=== PATIENT | female | born 1970 | race Caucasian/White ===

== ENCOUNTER 2020-01-20 14:18 | Emergency (ER) | payer OTHER, SELFPAY ==
[2020-01-20 14:20] VITALS: BP 180/89; PULSE 88; RESP 16; TEMP 36.6; O2SAT 98; BMI 36.7
[2020-01-20 16:41] VITALS: BP 151/95; PULSE 91; RESP 20; TEMP 36.8; O2SAT 100
--- NOTE | 2020-01-20 16:54 | ED.ABDPAIN ---
HPI - Abdominal Pain General Chief Complaint: Abdominal Pain Stated Complaint: low abd pain Time Seen by Provider: 01/20/20 16:54 Source: patient Mode of arrival: ambulatory Limitations: no limitations History of Present Illness HPI narrative: Patient been complaining of lower abdominal pain since yesterday more on the left side getting worse since morning did not eat much today pain get worse on ambulation no blood in the stool patient never had similar problem in the past no abdominal distention no fever or chills MD elicited complaint: abdominal pain Pertinent past history: none Onset (ago): day(s) (1) Pain Consistency: constant Location: LLQ and suprapubic Severity: moderate Quality: sharp Radiation: none Exacerbating factors: movement Relieving factors: nothing Related Data Home Medications Medication Instructions Recorded Confirmed albuterol sulfate 90 mcg/actuation INHALATION 01/20/20 01/20/20 aerosol inhaler bisacodyl 5 mg tablet,delayed 10 mg PO DIRECTED 01/20/20 01/20/20 release doxycycline hyclate 100 mg tablet 100 mg PO Q12H 01/20/20 01/20/20 methylcellulose (laxative) 500 mg 1,000 mg PO BID 01/20/20 01/20/20 tablet ondansetron HCl 4 mg tablet 400f8 mg PO BID PRN 01/20/20 01/20/20 pantoprazole 40 mg tablet,delayed 40 mg PO DAILY 01/20/20 01/20/20 release peg 3350-electrolytes 236 ml PO DIRECTED 01/20/20 01/20/20 gram-22.74 gram-6.74 gram-5.86 gram solution prednisone 10 mg tablet mg PO 01/20/20 01/20/20 Previous Rx's Medication Instructions Recorded diclofenac sodium 50 mg PO Q12H PRN #14 tab 01/20/20 Allergies Allergy/AdvReac Type Severity Reaction Status Date / Time Iodinated Contrast Media Allergy Intermediate HIVES,SWELLING Unverified 10/27/19 16:11 [IV CONTRAST] FACIAL iodine [IODINE] Allergy Intermediate HIVES Unverified 10/27/19 16:11 Penicillins [PENICILLINS] Allergy Intermediate HIVES Unverified 10/27/19 16:11 IV dye Allergy Unknown Unverified 08/02/19 00:00 penicillin V Allergy Unknown Unverified 08/02/19 00:00 apple Allergy Unknown Uncoded 01/27/19 00:00 iodine based iv dye Allergy Unknown Uncoded 08/02/19 00:00 Review of Systems Review of Systems REVIEW OF SYSTEMS: Pertinent positives and negatives are stated above in the history. GEN: no fevers, chills, fatigue HEENT: no nasal congestion, sore throat, ear pain NEURO: no headache, dizziness, focal weakness PULM: no cough, shortness of breath CV: no chest pain, palpitations, LE edema ABD: no nausea, vomiting, diarrhea : no dysuria, urgency, frequency SKIN: no rash ROS otherwise negative x 10 Physical Exam Vital Signs: Vital Signs: Last Vital Signs Temp 98.3 F 01/20/20 19:09 Pulse 70 01/20/20 19:09 Resp 20 01/20/20 19:09 BP 140/82 H 01/20/20 19:09 Pulse Ox 100 01/20/20 19:09 Body Mass Index 36.7 Appearance: Alert. Oriented X3. No acute distress. Eyes: Pupils equal, round and reactive to light. ENT: Pharynx normal. Neck: Normal inspection. Neck supple. CVS: Normal heart rate and rhythm. Pulses normal. Respiratory: No respiratory distress. Breath sounds normal. Abdomen: Soft and tenderness left lower quadrant no rebound tenderness or guarding bowel sounds are present no mass palpable Skin: Skin warm and dry. Normal skin color. Normal skin turgor. Extremities: No lower extremity edema. Good range of movement Neuro: Oriented X 3. No motor deficit. No sensory deficit. MDM - Abdominal Pain MDM Narrative Medical decision making narrative: Patient with lower abdominal pain slightly elevated WBC count without left shift CT scan showed left ovarian cyst which is confirmed by ultrasound. Patient feeling better after pain medication discharged home advised to follow-up with gynecology Differential Diagnosis Differential diagnosis: Likely diverticulitis and ovarian cyst Medical Records Attestation: I reviewed the patient's medical records. Lab Data Attestation: I reviewed the patient's lab results. Result diagrams: 01/20/20 17:18 01/20/20 19:08 Labs: Lab Results 01/20/20 01/20/20 01/20/20 Range/Units 17:18 17:18 17:18 WBC 12.0 H (4.8-10.8) X10*3/uL RBC 4.83 (4.20-5.50) X10*6/uL Hgb 12.2 (12.0-16.0) g/dl Hct 39.1 (37-47) % MCV 81.0 (80-98) fL MCH 25.3 L (27.0-33.0) pg MCHC 31.2 (31.0-35.0) g/dl RDW 15.0 (11.0-16.0) % Plt Count 234 (160-400) X10*3/uL MPV 10.3 (9.4-12.3) fL Immature Gran % (Auto) 0.3 (0.0-0.4) % Neut % (Auto) 66.3 (45-73) % Lymph % (Auto) 21.7 (20-40) % Richardson % (Auto) 7.0 (2-11) % Eos % (Auto) 4.3 H (0-4) % Baso % (Auto) 0.4 (0-2) % Lymph # (Auto) 2.6 (1.2-4.9) X10*3/uL Richardson # (Auto) 0.8 (0.1-1.2) X10*3/uL Eos # (Auto) 0.5 H (0.0-0.4) X10*3/uL Baso # (Auto) 0.1 (0.0-0.2) X10*3/uL Abs Immat Gran (auto) 0.04 H (0.00-0.03) X10*3/uL Absolute Neuts (auto) 8.0 (2.0-8.3) X10*3/uL Absolute Nucleated RBC 0.000 (0.0-0.012) X10*3/uL Nucleated RBC % (auto) 0.0 (0.0-0.2) /100WBC Smear Tech's Comments VERIFIED Sodium Cancelled Potassium Cancelled Chloride Cancelled Carbon Dioxide Cancelled Anion Gap Cancelled BUN Cancelled Creatinine Cancelled Estim Creat Clear Calc Cancelled Estimated GFR Cancelled Random Glucose Cancelled Lactic Acid 1.1 (0.5-2.0) mmol/L Calcium Cancelled Total Bilirubin Cancelled AST Cancelled ALT Cancelled Alkaline Phosphatase Cancelled Total Protein Cancelled Albumin Cancelled Lipase Cancelled Urine Color Urine Appearance Urine pH (5.0-8.0) Ur Specific [place] (1.005-1.025) Urine Protein (NEG-TRACE) MG/DL Urine Glucose (UA) (NEG) MG/DL Urine Ketones (NEG) MG/DL Urine Blood (NEG) Urine Nitrite (NEG) Ur Leukocyte Esterase (NEG) Urine RBC (0) /HPF Urine WBC (0-4) /HPF Ur Squamous Epith Cells /LPF Urine Bacteria /LPF 01/20/20 01/20/20 Range/Units 19:08 19:08 WBC (4.8-10.8) X10*3/uL RBC (4.20-5.50) X10*6/uL Hgb (12.0-16.0) g/dl Hct (37-47) % MCV (80-98) fL MCH (27.0-33.0) pg MCHC (31.0-35.0) g/dl RDW (11.0-16.0) % Plt Count (160-400) X10*3/uL MPV (9.4-12.3) fL Immature Gran % (Auto) (0.0-0.4) % Neut % (Auto) (45-73) % Lymph % (Auto) (20-40) % Richardson % (Auto) (2-11) % Eos % (Auto) (0-4) % Baso % (Auto) (0-2) % Lymph # (Auto) (1.2-4.9) X10*3/uL Richardson # (Auto) (0.1-1.2) X10*3/uL Eos # (Auto) (0.0-0.4) X10*3/uL Baso # (Auto) (0.0-0.2) X10*3/uL Abs Immat Gran (auto) (0.00-0.03) X10*3/uL Absolute Neuts (auto) (2.0-8.3) X10*3/uL Absolute Nucleated RBC (0.0-0.012) X10*3/uL Nucleated RBC % (auto) (0.0-0.2) /100WBC Smear Tech's Comments Sodium 139 Potassium 4.2 Chloride 104 Carbon Dioxide 27 Anion Gap 12 BUN 10 Creatinine 0.65 Estim Creat Clear Calc 111.5 Estimated GFR > 60 Random Glucose 80 Lactic Acid (0.5-2.0) mmol/L Calcium 8.5 Total Bilirubin 0.3 AST 11 ALT 14 Alkaline Phosphatase 72 Total Protein 6.2 L Albumin 3.7 Lipase 29 Urine Color YELLOW Urine Appearance CLEAR Urine pH 6.0 (5.0-8.0) Ur Specific [place] 1.020 (1.005-1.025) Urine Protein 2+ H (NEG-TRACE) MG/DL Urine Glucose (UA) NEG (NEG) MG/DL Urine Ketones NEG (NEG) MG/DL Urine Blood 3+ H (NEG) Urine Nitrite NEG (NEG) Ur Leukocyte Esterase NEG (NEG) Urine RBC 5-9 H (0) /HPF Urine WBC 0 (0-4) /HPF Ur Squamous Epith Cells 1+ /LPF Urine Bacteria TRACE /LPF Discharge Plan Discharge Clinical Impression: Ovarian cyst Qualifiers: Laterality: left Qualified Code(s): N83.202 - Unspecified ovarian cyst, left side Patient Disposition: Home, Self-Care Instructions: Ovarian Cyst (ED) Additional Instructions: Take medication as advised for pain. 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 Prescriptions: New diclofenac sodium 50 mg tablet,delayed release (DR/EC) 50 mg PO Q12H PRN (Reason: pain) Qty: 14 RF: 0 No Action Citrucel 500 mg tablet 1,000 mg PO BID RF: 0 pantoprazole 40 mg tablet,delayed release (DR/EC) 40 mg PO DAILY RF: 0 peg 3350-electrolytes 236-22.74-6.74 -5.86 gram recon soln PO DIRECTED RF: 0 bisacodyl 5 mg tablet,delayed release (DR/EC) 10 mg PO DIRECTED RF: 0 ondansetron HCl 4 mg tablet 400f8 mg PO BID PRNRF: 0 doxycycline hyclate 100 mg tablet 100 mg PO Q12H RF: 0 albuterol sulfate 90 mcg/actuation HFA aerosol inhaler inhalation RF: 0 prednisone 10 mg tablet PO RF: 0 PMFSH Past Medical History Medical History Chronic kidney disease Hyperthyroidism Social History Social History Smoked in Last 30 Days: No Use of substances other than those prescribed or required for medical reasons: No Advance Directives: No Advance Directives Information Provided: No
--- NOTE | 2020-01-20 17:01 | CT_ITS ---
EXAMINATION: CT ABDOMEN AND PELVIS WITHOUT CONTRAST CLINICAL INFORMATION: LLQ pain ?diverticulitis COMPARISON: None TECHNIQUE: Multidetector volumetric imaging was performed from the superior aspect of the liver through the pubic symphysis. Sagittal and coronal reformatted images were obtained on the technologist's workstation. This CT examination was performed using dose optimization techniques as appropriate, variously including the following: *Automated exposure control *Adjustment of mA and/or kV according to patient size (this includes techniques or standardized protocols for targeted exams where dose is matched to indication/reason for exam; i.e. extremities or head) *Use of iterative reconstruction technique DLP: 689 mGy-cm FINDINGS: LUNG BASES: The visualized lung bases are unremarkable. LIVER, GALLBLADDER, AND BILIARY TREE: Relative hypoattenuation of the hepatic parenchyma is consistent with steatosis. There are a few areas of focal fatty sparing including around gallbladder fossa. No focal hepatic lesions are identified on these unenhanced images. No biliary ductal dilatation. The gallbladder is unremarkable with no evidence of radiopaque gallstones, gallbladder wall thickening, or obvious pericholecystic inflammatory changes. PANCREAS: Unremarkable. SPLEEN: Unremarkable. ADRENAL GLANDS: Unremarkable. KIDNEYS AND URETERS: The kidneys are normal in size, shape, and attenuation. Multiple cysts are evident in the left renal sinus, favored to correspond to parapelvic cysts as opposed to hydronephrosis. No evidence of obstructive uropathy. No hydronephrosis, hydroureter, or calculi seen. No perinephric stranding. BLADDER: Unremarkable. GASTROINTESTINAL TRACT: Stomach, small bowel, and colon are normal in caliber. No bowel wall thickening or surrounding fat stranding. No intraperitoneal free fluid or free air. Appendix is normal. No significant colonic diverticulosis. ABDOMINAL WALL: No significant hernia is appreciated. LYMPH NODES: Normal. VASCULAR: Unremarkable. PELVIC VISCERA: The uterus is somewhat enlarged with a thickened myometrium at the posterior aspect of the uterine body, potentially due to leiomyomas or adenomyosis, not well assessed on these images. There is a 2 cm cystic focus at the left ovary with a trace amount of adjacent fat stranding, as a corresponding to a follicle. A hemorrhagic cyst is also on the differential. A C section scar is noted at the lower uterine segment. 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 No acute osseous abnormalities. CT/CT abdomen pelvis wo con IMPRESSION: No acute intra-abdominal or intrapelvic abnormalities are identified. Specifically, no evidence of diverticulosis or acute diverticulitis. There is a 2 cm cystic focus on the left ovary with a trace amount of adjacent fat stranding, possibly corresponding to a follicular cyst or a small hemorrhagic cyst. Consider correlation with ultrasound if clinically warranted. No suspicious abnormalities are identified in this region. Hepatic steatosis.
--- NOTE | 2020-01-20 17:39 | PC.NURSE ---
pt wishes to wait to take pain medications, states she will let rn know if she changes her mind. reports that pain is not as intense when she is laying down.
[2020-01-20 17:41] LABS: Basophils Absolute Auto 0.1 X10*3/uL (0.0-0.2); Basophils Percent Auto 0.4 % (0-2); Eosinophils Absolute Auto 0.5 X10*3/uL (0.0-0.4); Eosinophils Percent Auto 4.3 % (0-4); Hematocrit 39.1 % (37-47); Hemoglobin 12.2 g/dl (12.0-16.0); Imm Gran Abs Auto 0.04 X10*3/uL (0.00-0.03); Imm Gran Pct Auto 0.3 % (0.0-0.4); Lymphocytes Absolute Auto 2.6 X10*3/uL (1.2-4.9); Lymphocytes Percent Auto 21.7 % (20-40); MANUAL DIFF FLAG SCAN; Mean Corpuscular HGB Conc 31.2 g/dl (31.0-35.0); Mean Corpuscular Hemoglobin 25.3 pg (27.0-33.0); Mean Platelet Volume 10.3 fL (9.4-12.3); Monocytes Absolute Auto 0.8 X10*3/uL (0.1-1.2); Neutrophils Percent Auto 66.3 % (45-73); PLT CLUMP 1; Red Blood Count 4.83 X10*6/uL (4.20-5.50); SCAN SMEAR FLAG 1
[2020-01-20] MEDS: 0.9 % Sodium Chloride 1,000 ML 999 ML IVCONT (17:41)
[2020-01-20 17:59] LABS: Platelet Count 234 X10*3/uL (160-400)
[2020-01-20 18:00] LABS: SLIDE REVIEW VERIFIED
[2020-01-20 18:02] LABS: Lactic Acid 1.1 mmol/L (0.5-2.0)
[2020-01-20 19:09] VITALS: BP 140/82; PULSE 70; RESP 20; TEMP 36.8; O2SAT 100
[2020-01-20 19:19] LABS: Glucose Urine UA NEG (NEG); Leukocyte Esterase Urine NEG (NEG); Nitrite Urine NEG (NEG); Urine Blood 3+ (NEG); Urine Ketones NEG (NEG); Urine Protein 2+ MG/DL (NEG-TRACE)
[2020-01-20 19:21] LABS: Appearance Urine CLEAR; Color Urine YELLOW
[2020-01-20 19:26] LABS: Bacteria Urine TRACE /LPF; Squamous Epithelial Cell Urine 1+ /LPF; WBC Urine 0 /HPF (0-4)
--- NOTE | 2020-01-20 19:35 | US_ITS ---
EXAMINATION: PELVIC ULTRASOUND CLINICAL INFORMATION: Left lower quadrant pain, cyst seen on CT scan COMPARISON: CT scan performed earlier today TECHNIQUE: Both transabdominal and endovaginal scanning was performed. FINDINGS: A heterogeneous anteverted bulbous uterus is seen measuring 11.3 x 6.1 x 5.8 cm. No discrete uterine masses are seen. Endometrial thickness ranges from 0.6 to 0.8 cm. The right ovary was not seen Left ovary measures 3.1 x 2.2 x 2.3 cm for a volume of 8 mL it contains a benign appearing 2.3 x 1.8 x 1.4 cm simple cyst correlating with the abnormality seen on CT. No significant fluid is seen in the cul-de-sac. US/US transvaginal IMPRESSION: Bulbous uterus without discrete mass seen. Benign simple cyst left ovary correlating with findings seen on CT.
--- NOTE | 2020-01-20 19:35 | US_ITS ---
EXAMINATION: PELVIC ULTRASOUND CLINICAL INFORMATION: Left lower quadrant pain, cyst seen on CT scan COMPARISON: CT scan performed earlier today TECHNIQUE: Both transabdominal and endovaginal scanning was performed. FINDINGS: A heterogeneous anteverted bulbous uterus is seen measuring 11.3 x 6.1 x 5.8 cm. No discrete uterine masses are seen. Endometrial thickness ranges from 0.6 to 0.8 cm. The right ovary was not seen Left ovary measures 3.1 x 2.2 x 2.3 cm for a volume of 8 mL it contains a benign appearing 2.3 x 1.8 x 1.4 cm simple cyst correlating with the abnormality seen on CT. No significant fluid is seen in the cul-de-sac. US/US pelvic complete IMPRESSION: Bulbous uterus without discrete mass seen. Benign simple cyst left ovary correlating with findings seen on CT.
[2020-01-20 19:50] LABS: Alanine Aminotransferase 14 U/L (0-31); Albumin Level 3.7 g/dL (3.5-5.0); Alkaline Phosphatase 72 U/L (39-117); Anion Gap 12 (12-20); Aspartate Amino Transferase 11 U/L (5-31); Bilirubin Total 0.3 mg/dL (0.0-1.0); Blood Urea Nitrogen 10 mg/dL (9-16); Calcium 8.5 mg/dL (8.4-10.2); Carbon Dioxide 27 mmol/L (22-29); Chloride 104 mmol/L (96-108); Creatinine Clr Calc Pharmacy 111.5; Estimated Glomerular Filt Rate > 60; Glucose Random 80 mg/dL (60-115); Lipase 29 U/L (8-78); Potassium 4.2 mmol/l (3.3-5.1); Sodium 139 mmol/L (135-145); Total Protein 6.2 g/dL (6.5-8.0)
[2020-01-20] MEDS: Ketorolac Tromethamine 30 MG/ML VIAL IVPUSH (21:15)
== END 2020-01-20 21:16 | disposition home or self-care (01) ==
PROVIDERS: Emergency Provider Internal Medicine; PCP Internal Medicine
DX: N83.202 Unspecified ovarian cyst, left side (principal); R10.2 Pelvic and perineal pain; Z79.899 Other long term (current) drug therapy
CPT/HCPCS: 36415; 74176; 76830; 76856; 80053; 81001; 83605; 83690; 85025; 87040; 96361; 96374; 96375; 99284; J1885

== ENCOUNTER 2021-05-25 10:22 | Outpatient (REF) | payer OTHER, SELFPAY ==
[2021-05-25 10:34] LABS: MANUAL DIFF FLAG NO
[2021-05-25 11:13] LABS: Basophils Absolute Auto 0.1 X10*3/uL (0.0-0.2); Basophils Percent Auto 0.7 % (0-2); Eosinophils Absolute Auto 0.5 X10*3/uL (0.0-0.4); Eosinophils Percent Auto 6.2 % (0-4); Hemoglobin 12.9 g/dl (12.0-16.0); Imm Gran Abs Auto 0.04 X10*3/uL (0.00-0.03); Imm Gran Pct Auto 0.5 % (0.0-0.4); Lymphocytes Percent Auto 34.6 % (20-40); Mean Corpuscular HGB Conc 30.7 g/dl (31.0-35.0); Mean Corpuscular Hemoglobin 24.2 pg (27.0-33.0); Mean Corpuscular Volume 78.9 fL (80.0-98.0); Mean Platelet Volume 9.5 fL (9.4-12.3); Monocytes Absolute Auto 0.6 X10*3/uL (0.1-1.2); Monocytes Percent Auto 6.8 % (2-11); Neutrophils Absolute Auto 4.4 x10*3/uL (2.0-8.3); Neutrophils Percent Auto 51.2 % (45-73); Platelet Count 302 X10*3/uL (160-400); Red Blood Count 5.32 X10*6/uL (4.20-5.50); Red Cell Distribution Width 17.6 % (11.0-16.0); White Blood Count 8.7 X10*3/uL (4.8-10.8)
[2021-05-25 11:48] LABS: Alanine Aminotransferase 27 U/L (0-31); Albumin Level 3.6 g/dL (3.5-5.0); Alkaline Phosphatase 93 U/L (39-117); Anion Gap 12 (12-20); Aspartate Amino Transferase 18 U/L (5-31); Bilirubin Total 0.5 mg/dL (0.0-1.0); Blood Urea Nitrogen 13 mg/dL (9-16); Carbon Dioxide 25 mmol/L (22-29); Chloride 106 mmol/L (96-108); Cholesterol 164 mg/dL; Estimated Glomerular Filt Rate > 60; Glucose Random 97 mg/dL (60-115); HDL Cholesterol 36 mg/dL; LDL Cholesterol Calculated 105 mg/dl; Potassium 4.4 mmol/L (3.3-5.1); Sodium 139 mmol/L (135-145); Total Protein 6.5 g/dL (6.5-8.0); Triglycerides 116 mg/dL
[2021-05-25 12:04] LABS: Free T4 (Free Thyroxine) 0.97 ng/dL (0.71-1.85); Thyroid Stimulating Hormone 1.24 uIU/mL (0.32-4.0)
[2021-05-25 12:35] LABS: Vitamin D 25-OH Total 28.5 ng/mL (>30)
[2021-05-27 08:48] LABS: Folate 12.3 ng/mL (> or = 4.0); Vitamin B12 504 pg/mL (200-900)
== END 2021-05-25 10:23 | disposition home or self-care (01) ==
LOC: HO.LAB 10:22
PROVIDERS: PCP Internal Medicine; Visit Provider Internal Medicine
DX: E66.9 Obesity, unspecified (principal); E78.00 Pure hypercholesterolemia, unspecified
CPT/HCPCS: 36415; 80053; 80061; 82306; 82607; 82746; 84439; 84443; 85025

== ENCOUNTER 2021-08-22 08:56 | Outpatient (REF) | payer OTHER, SELFPAY ==
--- NOTE | 2021-08-22 08:58 | EMG_ITS ---
Right median and ulnar motor and sensory studies were performed. Right radial and sensory studies were performed, and needle examination was done. IMPRESSION: 1. Mild right median neuropathy across carpal tunnel. 2. Mild right mid cervical chronic radiculopathy. MD EMIGDIO Eddy/GEETA / [phone]
== END 2021-08-22 08:57 | disposition home or self-care (01) ==
LOC: HO.NEURO 08:56
PROVIDERS: Visit Provider Internal Medicine
DX: R20.0 Anesthesia of skin (principal); R20.2 Paresthesia of skin
CPT/HCPCS: 95886; 95910

== ENCOUNTER 2022-02-25 15:59 | Outpatient (REF) | payer OTHER, SELFPAY ==
--- NOTE | ~2022-02-25 | XR_ITS ---
EXAMINATION: XR chest 2V CLINICAL INFORMATION: Shortness of breath COMPARISON: No prior chest x-ray available in our system for comparison at the time of this dictation. TECHNIQUE: XR chest 2V Lungs and Marisol: Crowding of lung markings at the right base, was not confirmed on lateral view, questionable very mild infiltrate versus poor inspiration artifact. No evidence of failure. Pleura: Normal. Costophrenic angles are sharp. No pneumothorax. Heart: The heart is normal in size. Mediastinum: The mediastinum is within normal limits.. Bones: Skeletal structures included are normal for patient's age. XR/XR chest 2V IMPRESSION: * Crowding of lung markings at the right base, was not confirmed on lateral view, questionable very mild infiltrate versus poor inspiration artifact. Clinical correlation recommended. * No dense lobar consolidation pneumonia or pleural effusion.
== END 2022-02-25 16:00 | disposition home or self-care (01) ==
LOC: HO.HMGCX 15:59
PROVIDERS: Visit Provider Physician Assistant
DX: R06.02 Shortness of breath (principal)
CPT/HCPCS: 71046

== ENCOUNTER 2022-02-25 17:00 | Emergency (ER) | payer OTHER, SELFPAY ==
[2022-02-25 17:13] VITALS: BP 152/92; PULSE 101; RESP 18; TEMP 38.8; O2SAT 96; BMI 37.2
[2022-02-25 17:33] LABS: MANUAL DIFF FLAG NO
[2022-02-25 17:37] LABS: Basophils Absolute Auto 0.1 X10*3/uL (0.0-0.2); Basophils Percent Auto 0.7 % (0-2); Eosinophils Absolute Auto 0.2 X10*3/uL (0.0-0.4); Eosinophils Percent Auto 2.5 % (0-4); Hematocrit 41.6 % (37.0-47.0); Hemoglobin 13.8 g/dl (12.0-16.0); Imm Gran Abs Auto 0.05 X10*3/uL (0.00-0.03); Imm Gran Pct Auto 0.7 % (0.0-0.4); Lymphocytes Absolute Auto 0.7 X10*3/uL (1.2-4.9); Lymphocytes Percent Auto 9.3 % (20-40); Mean Corpuscular HGB Conc 33.2 g/dl (31.0-35.0); Mean Corpuscular Hemoglobin 27.9 pg (27.0-33.0); Mean Platelet Volume 9.8 fL (9.4-12.3); Monocytes Absolute Auto 0.4 X10*3/uL (0.1-1.2); Monocytes Percent Auto 5.5 % (2-11); Neutrophils Absolute Auto 6.2 x10*3/uL (2.0-8.3); Neutrophils Percent Auto 81.3 % (45-73); Platelet Count 200 X10*3/uL (160-400); Red Blood Count 4.95 X10*6/uL (4.20-5.50); Red Cell Distribution Width 14.5 % (11.0-16.0); White Blood Count 7.7 X10*3/uL (4.8-10.8)
[2022-02-25 17:47] LABS: Anion Gap 13 (12-20); Blood Urea Nitrogen 13 mg/dL (9-16); Calcium 8.4 mg/dL (8.4-10.2); Carbon Dioxide 21 mmol/L (22-29); Chloride 105 mmol/L (96-108); Estimated Glomerular Filt Rate > 60; Glucose Random 186 mg/dL (60-115); Potassium 3.7 mmol/L (3.3-5.1); Sodium 135 mmol/L (135-145)
[2022-02-25 18:11] LABS: Influenza A PCR NEGATIVE (Negative); Influenza B PCR NEGATIVE (Negative); Resp Syncy Virus RNA Qual PCR NEGATIVE (Negative); SARS COV2 PCR INHOUSE NEGATIVE (Negative)
[2022-02-25 20:07] VITALS: BP 155/84; PULSE 77; RESP 18; TEMP 36.9; O2SAT 97
--- NOTE | 2022-02-25 21:16 | ED_ITS ---
HPI - URI/Sore Throat General Chief Complaint: Upper Respiratory Symptoms Stated Complaint: sent from facility/ high fever Time Seen by Provider: 02/25/22 20:50 Source: patient Mode of arrival: ambulatory Limitations: no limitations History of Present Illness HPI Narrative: 51-year-old female who was referred to emergency department for evaluation of possible pneumonia and sepsis. The patient states she has been sick for approximately 1 week. She states she has had a cough which is mainly been dry nonproductive but turned productive yesterday. She states she has had intermittent fevers which she has been treating with ibuprofen 200 mg twice a day. She states that she has headache, bilateral hip pain, bilateral ear pain. She denied chest pain but she does feel short of breath and has dyspnea on exert ion. She states she gets very fatigued when she exerts herself. She states that she was feeling dizzy and lethargic. Patient has also been taking Mucinex without any relief for symptoms. She was seen at urgent care clinic, there was concerned that she was septic and may have pneumonia so she was referred to the emergency department for evaluation. Related Data Home Medications Medication Instructions Recorded Confirmed albuterol sulfate 90 mcg/actuation inhalation 01/20/20 11/14/21 aerosol inhaler fluticasone propionate 50 1 spray intranasal BID 04/08/21 11/14/21 mcg/actuation nasal spray,suspension (Flonase Allergy Relief) acetaminophen 500 mg tablet 500 mg PO Q6H PRN 06/03/21 11/14/21 (Tylenol Extra Strength) levocetirizine 5 mg tablet (Xyzal) 5 mg PO DAILY 06/03/21 11/14/21 azelastine 137 mcg (0.1 %) nasal 1 spray intranasal BID 10/10/21 11/14/21 spray aerosol losartan 50 mg tablet 50 mg PO BID 10/10/21 11/14/21 Previous Rx's Medication Instructions Recorded azithromycin 250 mg tablet See Rx Instructions PO .COMPLEX #6 02/25/22 (Zithromax Z-Kris) tabs cefuroxime axetil 500 mg tablet 500 mg PO Q12H 5 days #10 tabs 02/25/22 prednisone 20 mg tablet 60 mg PO DAILY 5 days #15 tabs 02/25/22 Allergies Allergy/AdvReac Type Severity Reaction Status Date / Time lisinopril Allergy Severe Cough Verified 11/14/21 12:57 apple Allergy Intermediate welting Verified 11/14/21 12:57 Iodinated Contrast Media Allergy Intermediate hives, Verified 11/14/21 12:57 [IV CONTRAST] facial swelling and welts iodine [IODINE] Allergy Intermediate HIVES Verified 11/14/21 12:57 penicillin V Allergy Intermediate swollen Verified 11/14/21 12:57 face Penicillins [PENICILLINS] Allergy Intermediate HIVES Verified 11/14/21 12:57 Review of Systems 2 Review of Systems: Yes all other systems are reviewed and are negative [facility] Past Medical History [facility] Narrative: Past medical history: Reviewed below, she also has a history of asthma. Social history: She denies tobacco and drug use. She does drink alcohol occasionally. Medical History Chronic kidney disease Exercise induced bronchospasm GERD (gastroesophageal reflux disease) Glaucoma Hematuria Hemorrhoid Hyperthyroidism Rosacea Surgical History History of 2 sections History of biopsy History of colonoscopy History of D&C History of endoscopy History of tubal ligation Hx of myringotomy Family History Family History Mother Autoimmune disease Myasthenia gravis Uterine cancer Renal cancer Colon cancer Father Substance use disorder Mental health disorder Maternal Grandfather Heart attack Social History Social History Housing: House Alcohol intake: current Alcohol intake frequency: holidays/special occasions only Patient Tobacco Use Status: Never used Tobacco e-Cigarette/Vaping Use: Never Used Second Hand Smoke Exposure: No Advance Directives: No Advance Directives Information Provided: No service: No Current occupational status: employed Current occupation: [employer] Cognitive needs: No Hearing needs: No Vision needs: Yes (Glasses) Physical Exam Vital Signs: Vital Signs: Last Vital Signs Temp 98.4 F 02/25/22 20:07 Pulse 77 02/25/22 20:07 Resp 18 02/25/22 20:07 BP 155/84 H 02/25/22 20:07 Pulse Ox 97 02/25/22 20:07 O2 Del Method 02/25/22 20:07 BMI result Body Mass Index 37.2 Const: General: cooperative and no acute distress Orientation/consciousness: oriented to person and oriented to place Limitations: no limitations HEENT: Head: Yes normal to inspection, Yes normocephalic and Yes atraumatic Ears: external ears normal General nose exam: Normal external nose present Face and sinus: Yes normal facial exam Mouth: Normal oral and palatal mucosa present Throat: Yes posterior oropharynx normal Eyes: General: appearance normal, both eyes and all related structures Pupils: Equal, round and reactive pupils present Neck: Neck: Yes normal visual inspection, Yes no lymphadenopathy, Yes trachea midline and Yes supple Chest: Chest palpation & inspection: normal inspection of the chest and normal palpation of entire chest wall Resp: Effort & Inspection: normal respiratory effort and able to speak in complete sentences Auscultation: rales ( Rales at bases), no rhonchi and no wheezes Cardio: Rate: regular rate Rhythm: regular rhythm Heart sounds: S1 normal heart sound present, S2 normal heart sound present and no murmurs GI: Inspection: Yes normal to inspection Palpation (GI): Soft to palpation, nontender and no guarding Auscultation: normal bowel sounds : General: Yes no CVA tenderness Back/Spine/Pelvis: Back: no CVA tenderness Skin: General skin exam: no rashes or lesions noted Neuro: General: oriented to person and oriented to place Cranial nerves: Yes CN's II-XII intact bilaterally and Yes Equal, round and reactive pupils present Cognition (Neuro): normal cognition Extrem: General: Yes normal to inspection Psych: Appearance: grossly normal Speech and movement: Normal speech and movement present Affect: normal affect Attitude: cooperative Medical Decision Making Medical Decision Making MDM Narrative: 51-year-old female who presents emergency department for evaluation of flu like illness x1 week with increased cough which is nonproductive, fever, shortness of breath, chest pain and myalgias. Patient's vital signs revealed an elevated blood pressure of 152/92, elevated pulse of 101, respiratory rate was normal at 18, temperature was elevated 101.9 degrees F. O2 saturation was 96% on room air. Laboratory evaluation including CBC, CMP, RSV, influenza and COVID-19 were ordered. Chest x-ray was obtained at the urgent care clinic and is in our system. 2128 : My laboratory and a interpretation is as follows: CBC normal. CO2 low 21. Glucose elevated 186. COVID-19, influenza and RSV were negative. Laboratory evaluation is nonspecific. Patient had a two-view chest x-ray as an outpatient, on my review of the x-ray patient does have subtle right lower lobe infiltrates. Radiologist reading is similar. At this time I suspect the patient had a viral illness and now has a bacterial pneumonia and I did discuss this with her. Patient was started on cefuroxime 500 mg every 12 hours x5 days and Zithromax Z-Kris. She was given her 1st dose of these medications here in the emergency department. Given her asthma in her shortness of breath she was also started on prednisone 60 mg once a day for 5 days. She was given her 1st dose here in the emergency department. Patient was given printed and verbal instructions and discharged home. I did tell the patient that I am not able to see any prescriptions that may have been prescribed by the urgent care clinic and I told her not to get these prescriptions filled but to get my prescriptions filled and Take them as directed. Differential Diagnosis The differential diagnosis includes but is not limited to viral pneumonia, bacterial pneumonia, asthma exacerbation Lab Data [facility] Lab Attestation statement: I reviewed the patient's lab results. please see my discussion in the MDM Section 02/25/22 17:25 02/25/22 17:25 Labs: Lab Results 02/25/22 02/25/22 02/25/22 Range/Units 17:25 17:25 17:25 WBC 7.7 (4.8-10.8) X10*3/uL RBC 4.95 (4.20-5.50) X10*6/uL Hgb 13.8 (12.0-16.0) g/dl Hct 41.6 (37.0-47.0) % MCV 84.0 (80.0-98.0) fL MCH 27.9 (27.0-33.0) pg MCHC 33.2 (31.0-35.0) g/dl RDW 14.5 (11.0-16.0) % Plt Count 200 D (160-400) X10*3/uL MPV 9.8 (9.4-12.3) fL Immature Gran % (Auto) 0.7 H (0.0-0.4) % Neut % (Auto) 81.3 H (45-73) % Lymph % (Auto) 9.3 L (20-40) % [place] % (Auto) 5.5 (2-11) % Eos % (Auto) 2.5 (0-4) % Baso % (Auto) 0.7 (0-2) % Lymph # (Auto) 0.7 L (1.2-4.9) X10*3/uL [place] # (Auto) 0.4 (0.1-1.2) X10*3/uL Eos # (Auto) 0.2 (0.0-0.4) X10*3/uL Baso # (Auto) 0.1 (0.0-0.2) X10*3/uL Abs Immat Gran (auto) 0.05 H (0.00-0.03) X10*3/uL Absolute Neuts (auto) 6.2 (2.0-8.3) x10*3/uL Absolute Nucleated RBC 0.000 (0.0-0.012) X10*3/uL Nucleated RBC % (auto) 0.0 (0.0-0.2) /100WBC Sodium 135 (135-145) mmol/L Potassium 3.7 (3.3-5.1) mmol/L Chloride 105 (96-108) mmol/L Carbon Dioxide 21 L (22-29) mmol/L Anion Gap 13 (12-20) BUN 13 (9-16) mg/dL Creatinine 0.82 (0.5-1.4) mg/dL Estim Creat Clear Calc 87.0 Estimated GFR > 60 Random Glucose 186 H (60-115) mg/dL Calcium 8.4 D (8.4-10.2) mg/dL Influenza Type A (PCR) NEGATIVE (Negative) Influenza Type B (PCR) NEGATIVE (Negative) RSV RNA Qual (PCR) NEGATIVE (Negative) SARS-CoV-2 RNA (RT-PCR) NEGATIVE (Negative) Independent Interpretation I performed an independent interpretation of an: Plain X-Ray ( two-view chest x- ray) Interpretation: my independent interpretation of the chest x-ray is right lower lobe infiltrates Radiology Impression Discussion of test interpretation with radiology: I have reviewed the radiologist's reading. Radiologist Impression: XR/XR chest 2V IMPRESSION: ?*? Crowding of lung markings at the right base, was not confirmed on lateral view, questionable very mild infiltrate versus poor inspiration artifact. Clinical correlation recommended. ?*? No dense lobar consolidation pneumonia or pleural effusion. ?Dictated By: Shaan Milian MD Signed By:<Electronically signed by Shaan Milian MD in OV>02/25/22 0463 External Record Review External record reviewed: Outpatient record ( walk-in clinic visit record reviewed) Discharge Plan Discharge Clinical Impression: Pneumonia Qualifiers: Pneumonia type: due to unspecified organism Laterality: right Lung location: lower lobe of lung Qualified Code(s): J18.9 - Pneumonia, unspecified organism Patient Disposition: Home, Self-Care Instructions: Community Acquired Pneumonia (ED) Additional Instructions: Your blood work was unremarkable except for slight elevation of your glucose/blood sugar. This is often related to an infection. When your better you should have your blood sugar checked by your primary care provider. Your chest x-ray revealed a right-sided pneumonia. I am treating you with 2 antibiotics Zithromax and cefuroxime Take Zithromax (azithromycin) Z-Kris as prescribed. Day 1 take 2 pills, each day after that take 1 pill for total of 5 days. You received a dose here in the emergency department. Take day 1 again, tomorrow evening. Take cefuroxime 500 mg pills, 1 pill every 12 hours for 5 days. You received a dose in the emergency department. Take your next dose tomorrow morning. Take prednisone 20 mg pills, 3 pills once a day for 5 days. While you are beto ing prednisone, do not take any NSAIDs (Motrin, Advil, ibuprofen, Aleve, naproxen). Take EXTRA-STRENGTH Tylenol (acetaminophen) 500 mg pills, 2 pills every 4 to 6 hours as needed for pain. Follow-up with your doctor in 2 days. Please return to the emergency department if your symptoms get worse or if you develop any symptoms that are concerning to you. THE ONLY MEDICATION THAT WAS PRESCRIBED FROM THE CLINIC WAS TYLENOL (ACETAMINOPHEN) 325 MG PILLS. IF YOU HAVE TYLENOL AT HOME YOU CAN TAKE IT DIRECTED OTHERWISE I RECOMMEND THAT YOU GET EXTRA-STRENGTH TYLENOL 500 MG PILLS AND TAKE IT I DISCUSSED ABOVE Prescriptions: New azithromycin [Zithromax Z-Kris] 250 mg tablet See Rx Instructions .ROUTE .COMPLEX Qty: 6 0RF Rx Instructions: take 500 mg today (day 1), then 250 mg for 4 days (days 2-5) prednisone 20 mg tablet 60 mg PO DAILY 5 Days Qty: 15 0RF cefuroxime axetil 500 mg tablet 500 mg PO Q12H 5 Days Qty: 10 0RF No Action albuterol sulfate 90 mcg/actuation HFA aerosol inhaler inhalation fluticasone propionate [Flonase Allergy Relief] 50 mcg/actuation spray,suspension 1 spray intranasal BID Rx Instructions: administer into each nostril levocetirizine [Xyzal] 5 mg tablet 5 mg PO DAILY acetaminophen [Tylenol Extra Strength] 500 mg tablet 500 mg PO Q6H PRN losartan 50 mg tablet 50 mg PO BID azelastine 137 mcg (0.1 %) aerosol,spray 1 spray intranasal BID
[2022-02-25] MEDS: predniSONE 20 MG TABLET 60 MG PO (22:19)
[2022-02-25] MEDS: Azithromycin 500 MG TABLET PO (22:20)
[2022-02-25] MEDS: Ibuprofen 600 MG TABLET PO (22:20)
--- NOTE | 2022-02-25 22:22 | PC.NURSE ---
pt medicated per provider order.
== END 2022-02-25 22:23 | disposition home or self-care (01) ==
PROVIDERS: Emergency Provider Emergency Medicine Emergency Medical Services; PCP Internal Medicine
DX: J18.9 Pneumonia, unspecified organism (principal); R51.9 Headache, unspecified; R50.9 Fever, unspecified; Z20.822 Contact with and (suspected) exposure to COVID-19; Z20.828 Contact with and (suspected) exposure to other viral communicable diseases; Z79.899 Other long term (current) drug therapy
CPT/HCPCS: 0241U; 36415; 80048; 85025; 99283

== ENCOUNTER 2022-05-05 08:45 | Outpatient (REF) | payer OTHER, SELFPAY ==
--- NOTE | ~2022-05-05 | XR_ITS ---
EXAMINATION: XR CERVICAL SPINE CLINICAL INFORMATION: Cervical radiculopathy. COMPARISON: None available. TECHNIQUE: Frontal, lateral and odontoid views are obtained. FINDINGS: Vertebral body heights and alignment are normal. There is mild posterior disc space narrowing at C6-C7. The remaining disc spaces are well-maintained. No acute fracture or spondylolisthesis is seen. There is moderate anterior spondylosis at C5-C6 and C6-C7. The posterior elements are intact. There is no prevertebral soft tissue swelling. The dens and C7-T1 interface are normal. XR/XR cervical spine 2V IMPRESSION: 1. At C6-C7, there is mild degenerative disc disease. 2. There is moderate anterior spondylosis at C5-C6 and C6-C7.
--- NOTE | ~2022-05-05 | XR_ITS ---
EXAMINATION: XR KNEE, RIGHT CLINICAL INFORMATION: Pain. COMPARISON: Radiographs dated 01/20/2011. TECHNIQUE: AP and lateral views of the right knee. FINDINGS: Bony mineralization is normal. There is marked narrowing of the medial patellofemoral joint space compartments, with peripheral osteophyte formation. The lateral joint space compartment is well-maintained. A small ossific density is seen adjacent to the lateral femoral condyle, raising the possibility prior ligamentous injury. There is no acute fracture, dislocation or joint effusion. No foreign body is seen. XR/XR knee RT 2V IMPRESSION: 1. There is marked osteoarthritic change of the medial patellofemoral joint space compartments of the right knee. 2. No right knee fracture, dislocation or joint effusion is seen.
--- NOTE | ~2022-05-05 | XR_ITS ---
EXAMINATION: XR CHEST CLINICAL INFORMATION: R05.3 - Chronic cough COMPARISON: Chest radiographs 02/25/2022, 02/28/2019 TECHNIQUE: 2 views of the chest were obtained. FINDINGS: The lungs are clear. The heart is normal in size. The vascularity is normal. No airspace consolidation, groundglass opacity, or effusion. The hilar and mediastinal contours and bony structures are similar to prior studies. XR/XR chest 2V IMPRESSION: Unremarkable examination.
== END 2022-05-05 08:46 | disposition home or self-care (01) ==
LOC: HO.XRAY 08:45
PROVIDERS: PCP Internal Medicine; Visit Provider Internal Medicine
DX: M54.12 Radiculopathy, cervical region (principal); R05.3 Chronic cough; M25.561 Pain in right knee
CPT/HCPCS: 71046; 72040; 73560

== ENCOUNTER 2022-07-08 13:27 | Outpatient (REF) | payer OTHER, SELFPAY ==
[2022-07-08 14:39] LABS: MANUAL DIFF FLAG NO
[2022-07-08 14:51] LABS: Basophils Absolute Auto 0.1 X10*3/uL (0.0-0.2); Basophils Percent Auto 0.7 % (0-2); Eosinophils Absolute Auto 0.4 X10*3/uL (0.0-0.4); Eosinophils Percent Auto 3.9 % (0-4); Hemoglobin 14.5 g/dl (12.0-16.0); Imm Gran Abs Auto 0.04 X10*3/uL (0.00-0.03); Imm Gran Pct Auto 0.4 % (0.0-0.4); Lymphocytes Absolute Auto 2.3 X10*3/uL (1.2-4.9); Lymphocytes Percent Auto 22.4 % (20-40); Mean Corpuscular Hemoglobin 28.9 pg (27.0-33.0); Mean Corpuscular Volume 87.6 fL (80.0-98.0); Mean Platelet Volume 9.8 fL (9.4-12.3); Monocytes Absolute Auto 0.7 X10*3/uL (0.1-1.2); Monocytes Percent Auto 6.3 % (2-11); Neutrophils Absolute Auto 6.9 x10*3/uL (2.0-8.3); Neutrophils Percent Auto 66.3 % (45-73); Platelet Count 262 X10*3/uL (160-400); Red Blood Count 5.02 X10*6/uL (4.20-5.50); Red Cell Distribution Width 13.4 % (11.0-16.0); White Blood Count 10.4 X10*3/uL (4.8-10.8)
[2022-07-08 15:23] LABS: Alanine Aminotransferase 26 U/L (0-31); Albumin Level 3.9 g/dL (3.5-5.0); Alkaline Phosphatase 87 U/L (39-117); Anion Gap 12 (12-20); Aspartate Amino Transferase 18 U/L (5-31); Bilirubin Total 0.4 mg/dL (0.0-1.0); Blood Urea Nitrogen 13 mg/dL (9-16); Carbon Dioxide 25 mmol/L (22-29); Chloride 108 mmol/L (96-108); Estimated Glomerular Filt Rate > 60; Glucose Random 82 mg/dL (60-115); Potassium 4.3 mmol/L (3.3-5.1); Sodium 141 mmol/L (135-145); Total Protein 6.9 g/dL (6.5-8.0)
[2022-07-08 15:25] LABS: B Type Natriuretic Peptide 66 pg/mL (<100)
[2022-07-08 15:32] LABS: Erythrocyte Sedimentation Rate 8 MM/HR (0-20)
[2022-07-11 00:47] LABS: IgA 221 mg/dL (47-310); IgG 1037 mg/dL (600-1640); IgM 114 mg/dL (50-300)
[2022-07-16 18:33] LABS: Asperg fumigatus Precip Abs NEGATIVE (NEGATIVE); Micropoly faeni Abs NEGATIVE (NEGATIVE); Pigeon serum Abs NEGATIVE (NEGATIVE); Saccharo pora viridis Abs NEGATIVE (NEGATIVE); Thermo candidus Abs NEGATIVE (NEGATIVE); Thermoa vulgaris #1 NEGATIVE (NEGATIVE)
== END 2022-07-08 13:28 | disposition home or self-care (01) ==
LOC: CF 13:27
PROVIDERS: Physician Assistant; PCP Internal Medicine; Visit Provider Hospitalist
DX: J18.9 Pneumonia, unspecified organism (principal); R05.3 Chronic cough; R91.8 Other nonspecific abnormal finding of lung field; R06.02 Shortness of breath; J45.20 Mild intermittent asthma, uncomplicated
CPT/HCPCS: 36415; 80053; 82784; 82785; 83880; 85025; 85652; 86003; 86331; 86606; 86609

== ENCOUNTER 2022-09-15 10:04 | Outpatient (AMB) | payer OTHER, SELFPAY ==
--- NOTE | 2022-09-15 10:05 | A.OFFVIS_ITS ---
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 The patient states that she has been diagnosed with pneumonia several times once back in 2018 2019 and another time in February 2022. The patient usually gets symptoms of shortness of breath chest tightness with ?itchiness ?in her substernal area. Feels like his internal. Moderate severity. Typically worse at nighttime. She was evaluated for allergies in which she had noted to have significant allergies and at 1 point did receive allergy shots. She does have a rescue inhaler that she uses as needed. She did undergo pulmonary function studies in the past demonstrating no obstructive ventilatory defects. She understood from that study that she did not have any airway issues. We did review her chest x-rays demonstrating initially airspace disease primarily in the right hemithorax. Her blood work that she has had past demonstrates significant eosinophilia. 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 The patient does respond well to prednisone back in February of this year. 09/15/2022 the patient is here for a pulmonary follow-up visit. The patient overall is doing well. She did have the Symbicort but she does not use it regul izabel. The patient does not like to take too many medications. We did review the blood work. The eosinophilic levels are slightly better. May have been because she had been on prednisone. In addition to that the allergy testing was significant for significant dust mite allergies and other environmental allergens. The patient clinically is doing okay right now. Summer seems to be a good month for her. Explained to her that the Symbicort she can use as needed. She did not have her pulmonary function studies. Will have her come back in 6 months with PFTs. She is very upset about her ongoing symptoms with joint pain and swelling. Denies any rashes. [facility] Medical History (Updated 09/15/22 @ 10:23 by Nikko Kruse MD) Asthma Chronic kidney disease Exercise induced bronchospasm GERD (gastroesophageal reflux disease) Glaucoma Hematuria Hemorrhoid Hyperthyroidism Joint swelling Rosacea Surgical History History of 2 sections History of biopsy History of colonoscopy History of D&C History of endoscopy History of tubal ligation Hx of myringotomy Family History Mother Autoimmune disease Myasthenia gravis Uterine cancer Renal cancer Colon cancer Father Substance use disorder Mental health disorder Maternal Grandfather Heart attack Social History Housing: House Alcohol intake: current Alcohol intake frequency: holidays/special occasions only Patient Tobacco Use Status: Never used Tobacco e-Cigarette/Vaping Use: Never Used Second Hand Smoke Exposure: No service: No Current occupational status: employed Current occupation: [employer] Current occupational exposures/hazards: No Cognitive needs: No Hearing needs: No Vision needs: Yes (Glasses) Review of Systems Const Denies fever(s) Eyes Denies blurry vision and Reports dry eyes ENT Reports nasal congestion Card Denies chest pain and Denies palpitations Resp Reports cough and Denies wheezing GI Reports no additional complaints Musc Reports no additional complaints, Reports myalgias, Reports arthralgias and Reports joint swelling Skin/Breast Reports rash Neuro Reports no additional complaints Psych Reports no additional complaints Endo Denies palpitations Rey/Lymph Denies easy bleeding, Denies easy bruising and Denies lymphadenopathy Aller/Immun Denies wheezing Physical Exam Vital Signs: Last Vital Signs Pulse 81 09/15/22 10:06 BP 128/72 09/15/22 10:06 Pulse Ox 97 09/15/22 10:06 Oxygen Delivery Method Room Air 09/15/22 10:06 BMI result Body Mass Index 37.2 Const General: comfortable HEENT Head: Yes normocephalic Eyes General: appearance normal, both eyes and all related structures Neck Neck: Yes supple Chest Chest palpation & inspection: normal inspection of the chest Resp Effort & Inspection: normal respiratory effort Auscultation: clear to auscultation bilaterally and no wheezes Cardio Rhythm: regular rhythm Heart sounds: S1 normal heart sound present and S2 normal heart sound present GI Palpation (GI): Soft to palpation Skin General skin exam: no rashes or lesions noted Extrem General: Yes no clubbing, cyanosis or edema Assessment & Plan Assessment & Plan (1) Asthma: Comment: with eosinophilia Code(s): J45.909 - Unspecified asthma, uncomplicated Qualifiers: Asthma complication type: uncomplicated Asthma persistence: intermittent Asthma severity: mild Qualified Code(s): J45.20 - Mild intermittent asthma, uncomplicated (2) Chronic cough: Comment: 2014 pulmonary function test normal Code(s): R05.3 - Chronic cough (3) Joint swelling: Code(s): M25.40 - Effusion, unspecified joint Plan Bloodwork continue Symbicort, as needed ISAC as needed PFTs in 6 months F/U6 months Orders: Orders Cyclic Citrullinated Peptide Today M25.40 - Effusion, unspecified joint CORETTA Reflex Titer and Pattern Today M25.40 - Effusion, unspecified joint Sjogren's Antibodies Today M25.40 - Effusion, unspecified joint Lyme IgG/IgM w/reflex to WB Today M25.40 - Effusion, unspecified joint Coding Level of Care Code Est Pt Level 4 (90852) Diagnoses Asthma J45.20 Asthma complication type: uncomplicated Asthma persistence: intermittent Asthma severity: mild Chronic cough R05.3 Joint swelling M25.40 Time Spent (min) 18
[2022-09-15 10:06] VITALS: BP 128/72; PULSE 81; O2SAT 97; BMI 37.2
== END 2022-09-15 10:28 | disposition home or self-care (01) ==
PROVIDERS: PCP Internal Medicine; Visit Provider Hospitalist
DX: J45.20 Mild intermittent asthma, uncomplicated (principal); R05.3 Chronic cough; M25.40 Effusion, unspecified joint
CPT/HCPCS: 99214

== ENCOUNTER 2022-09-15 10:04 | Outpatient (REF) | payer OTHER, SELFPAY ==
[2022-09-16 13:48] LABS: Antibody to SS-A Antigen <1.0 NEG AI (<1.0 NEG); Antibody to SS-B Antigen <1.0 NEG AI (<1.0 NEG)
[2022-09-16 14:34] LABS: Lyme Blot 1.28 index
[2022-09-17 15:39] LABS: Cyclic Citrullinated Peptide <16 UNITS
[2022-09-18 04:14] LABS: Immunoglobulin E 63 kU/L (<OR=114)
[2022-09-19 12:16] LABS: 18 KD (IgG) Band NON-REACTIVE; 23 KD (IgG) Band NON-REACTIVE; 23 KD (IgM) Band REACTIVE; 28 KD (IgG) Band NON-REACTIVE; 30 KD (IgG) Band NON-REACTIVE; 39 KD (IgM) Band NON-REACTIVE; 39KD (IgG) Band NON-REACTIVE; 41 KD (IgM) Band NON-REACTIVE; 41KD (IgG) Band NON-REACTIVE; 45 KD (IgG) Band NON-REACTIVE; 58 KD (IgG) Band REACTIVE; 66 KD (IgG) Band NON-REACTIVE; 93 KD (IgG) Band REACTIVE; Lyme IgG Blot Interp NEGATIVE (NEGATIVE); Lyme IgM Blot Interp NEGATIVE (NEGATIVE)
[2022-09-19 12:18] LABS: Lyme Abs Screen POSITIVE
[2022-09-25 14:53] LABS: Anti Nuclear Antibody Screen POSITIVE (NEGATIVE)
== END 2022-09-15 10:05 | disposition home or self-care (01) ==
LOC: HO.LAB 10:04
PROVIDERS: PCP Internal Medicine; Visit Provider Hospitalist
DX: J44.9 Chronic obstructive pulmonary disease, unspecified (principal); J45.20 Mild intermittent asthma, uncomplicated; J18.9 Pneumonia, unspecified organism; M25.40 Effusion, unspecified joint; Z79.899 Other long term (current) drug therapy
CPT/HCPCS: 36415; 82785; 86038; 86039; 86200; 86235; 86617; 86618

== ENCOUNTER 2022-09-17 11:22 | Outpatient (AMB) | payer OTHER, SELFPAY ==
[2022-09-17 11:32] VITALS: BP 130/74; PULSE 80; O2SAT 98; BMI 37.6
--- NOTE | 2022-09-17 11:32 | MHC.PC.OV ---
Vital Signs 09/17/22 11:32 Height 5 ft 3 in Weight 96.162 kg BMI 37.6 BP 130/74 Blood Pressure Location Lt brachial Position Sitting Pulse 80 Pulse Source Pulse Oximeter Pulse Oximetry (%) 98 Oxygen Delivery Method Room Air Intake Visit Reasons: pt requesting physical Allergies lisinopril Allergy (Severe, Verified 09/17/22 11:33) Cough apple Allergy (Intermediate, Verified 09/17/22 11:33) welting Iodinated Contrast Media [IV CONTRAST] Allergy (Intermediate, Verified 09/17/22 11:33) hives, facial swelling and welts iodine [IODINE] Allergy (Intermediate, Verified 09/17/22 11:33) HIVES Penicillins [PENICILLINS] Allergy (Intermediate, Verified 09/17/22 11:33) HIVES amlodipine Adverse Reaction (Intermediate, Unverified 09/17/22 12:37) swelling Medication List - Last Reconciled 09/17/22 by Faviola Alonso MD acetaminophen (Tylenol Extra Strength) 500 mg PO Q6H PRN albuterol sulfate 90 mcg/actuation 2 puffs inhalation Q6H PRN 30 days amlodipine 5 mg PO DAILY azelastine 1 spray intranasal BID blood pressure monitor (Blood Pressure Kit) As directed fluticasone propionate 50 mcg/actuation (Flonase Allergy Relief) 1 spray intranasal BID ibuprofen (Motrin IB) 200 mg PO Q6H PRN inhalational spacing device (Aerochamber MV spacer) As directed levocetirizine (Xyzal) 5 mg PO DAILY losartan 50 mg PO BID Symbicort 160-4.5 mcg/actuation (budesonide-formoterol) 2 puffs inhalation BID 30 days NS Tobacco use date assessed: 04/25/22 Dental Screening Dental Screen Date: 09/17/22 Did you have a dental visit in the last 12 months?: Yes Did you have a dental problem in the last 6 months where you did not have access to dental care?: No Was dental information given to patient?: Patient has dentist HPI pt requesting physical HPI Details 52-year-old obese female with a history of chronic cough follows up with pulmonary, hypertension, GERD coming in for physical exam. Patient had a chest x-ray and referral to Pulmonary. Mammogram is due, colonoscopy is up-to-date. Pulmonary notes appreciated eosinophilic asthma placed on Symbicort PFTs requested.. Patient had some x-rays on the cervical spine showing C6-C7 mild degenerative disc otherwise moderate anterior spondylosis at C5-C6 and C6-C7. Bilateral knee marked osteoarthritis right knee. dizzy occ, biopsy done on kidnesy - not alport thin basement mebrane - presently unknown 2021 [facility] Medical History (Updated 09/17/22 @ 12:18 by Faviola Alonso MD) Asthma Chronic kidney disease Exercise induced bronchospasm GERD (gastroesophageal reflux disease) Glaucoma Hematuria Hemorrhoid Hyperthyroidism Joint swelling Rosacea Surgical History History of 2 sections History of biopsy History of colonoscopy History of D&C History of endoscopy History of tubal ligation Hx of myringotomy Family History Mother Autoimmune disease Myasthenia gravis Uterine cancer Renal cancer Colon cancer Father Substance use disorder Mental health disorder Maternal Grandfather Heart attack Social History (Updated 09/17/22 @ 12:25 by Faviola Alonso MD) Housing: House Alcohol intake: current Alcohol intake frequency: holidays/special occasions only Patient Tobacco Use Status: Never used Tobacco e-Cigarette/Vaping Use: Never Used Second Hand Smoke Exposure: No service: No Current occupational status: employed 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 1. Little interest or pleasure in doing things: not at all 2. Feeling down, depressed, or hopeless: not at all 3. Trouble falling or staying asleep, or sleeping too much: not at all 4. Feeling tired or having little energy: not at all 5. Poor appetite or overeating: not at all 6. Feeling bad about yourself - or that you are a failure or have let yourself or your family down: not at all 7. Trouble concentrating on things, such as reading the newspaper or watching television: not at all 8. Moving or speaking so slowly that other people could have noticed. Or the opposite - being so fidgety or restless that you have been moving around a lot more than usual: not at all 9. Thoughts that you would be better off or of hurting yourself in some way: not at all Total score: 0 Depression Screening Interpretation: Negative [id number] - PHQ-9 Billing: Yes Source: Developed by Drs. Torsten Win, Dyana Oviedo, Dick Lima and colleagues, with an educational lazaro from [employer]. Thrive Questionnaire Date Thrive assessed: 03/03/22 AUDIT C Alcohol Use Questionnaire (AUDIT-C) 1. How often do you have a drink containing alcohol?: Monthly or less 2. How many drinks containing alcohol do you have on a typical day when you are drinking?: 1 or 2 3. How often do you have six or more drinks on one occasion?: Never Total Score: 1 Score Reviewed/Action Taken: No JONATHAN-7 AMB Questionnaire JONATHAN-7 Date JONATHAN - 7 assessed: 03/03/22 Source: Developed by Drs. Torsten Win, Dyana Oviedo, Dick Lima and colleagues, with an educational lazaro from [employer]. Review of Systems Const Denies poor appetite and Denies weakness Eyes Denies no additional complaints ENT Reports Normal hearing present, Denies dizziness, Denies nasal congestion, Denies tinnitus and Denies sore throat Card Denies chest pain, Denies syncope, Denies rapid heart rate and Denies dyspnea Resp Denies cough and Denies dyspnea GI Denies change in stool character, Reports constipation, Denies diarrhea, Denies nausea and Denies vomiting Denies urinary frequency, Denies difficulty voiding and Denies dysuria Neuro Reports Normal hearing present, Denies confusion, Denies dizziness, Denies syncope and Denies weakness Psych Denies confusion Physical exam (Primary Care) Vital Signs: Last Vital Signs Pulse 80 09/17/22 11:32 BP 130/74 09/17/22 11:32 Pulse Ox 98 09/17/22 11:32 Oxygen Delivery Method Room Air 09/17/22 11:32 BMI result Body Mass Index 37.6 Tobacco/Smoking Status: Tobacco use Status Tobacco use date assessed 04/25/22 09/17/22 11:33 Patient Tobacco Use Status Never used Tobacco 09/17/22 12:25 e-Cigarette/Vaping Use Never Used 09/17/22 12:25 PHQ-9: PHQ-9 Score PHQ-9: Total score 0 09/17/22 12:12 Depression Screening Interpretation: Negative Thrive Assessment: Date of Thrive Assessment Date Thrive assessed 03/03/22 09/17/22 11:33 Const General: No confusion Orientation/consciousness: No confusion HENMT Head: Yes normocephalic Ears: external ears normal and TM's normal bilaterally Face and sinus: Yes normal facial exam Mouth: moist mucous membranes Throat: Yes tonsils normal Eyes Conjunctivae: conjunctivae normal Pupils: Equal, round and reactive pupils present and Pupil accommodation reflex normal Direct Ophthalmoscopy: normal light reflex Neck Neck: No lymphadenopathy Thyroid: Thyroid normal Chest Chest palpation & inspection: normal inspection of the chest Resp Effort & Inspection: normal respiratory effort and no audible wheezes Auscultation: clear to auscultation bilaterally, no crackles, no wheezes and lung sounds not diminished Cardio Rate: regular rate Rhythm: regular rhythm Peripheral pulses: radial pulses present and dorsalis pedis present GI Palpation (GI): no masses Auscultation: normal bowel sounds and normoactive bowel sounds Rectal Exam - Female: deferred Skin General skin exam: no rashes or lesions noted Rashes: no rashes Neuro General: No confusion Cranial nerves: Yes Equal, round and reactive pupils present and Yes Normal hearing present Cognition (Neuro): normal cognition Gait exam (Neuro): Normal gait present Motor exam (neuro): 5/5 motor strength present throughout Deep tendon reflexes (DTR's): Right brachioradialis reflex intensity grade: 2+, Left brachioradialis reflex intensity grade: 2+, Right patellar reflex intensity grade: 2+ and Left patellar reflex intensity grade: 2+ Extrem General: No edema Immunizations pneumoc 20-manny conj-dip cr(PF) Performing Provider: Faviola Alonso MD Administered by: Brenda Yen CMA on 09/17/22 12:49 Dose Route Admin Location Lot Number Expiration Date NDC Senior 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 Engineer 0.5 mL IM Left Deltoid [id number] 10/11/23 3940-7884-75 [employer] VIS Given Date VIS Provided VIS Publication Date 09/17/22 Single Vaccine 21 Eligibility Eligibility Date Funding Source Not VFC Eligible 09/17/22 Private Assessment and Plan Assessment & Plan (1) Annual physical exam: Code(s): Z00.00 - Encounter for general adult medical examination without abnormal findings (2) Asthma: Comment: with eosinophilia Code(s): J45.909 - Unspecified asthma, uncomplicated Qualifiers: Asthma complication type: uncomplicated Asthma persistence: intermittent Asthma severity: mild Qualified Code(s): J45.20 - Mild intermittent asthma, uncomplicated Plan: Patient follows up with Pulmonary placed on Symbicort and short-acting beta agonist (3) Osteoarthritis of right knee: Code(s): M17.11 - Unilateral primary osteoarthritis, right knee Plan: Keep active lose the weight (4) Hypertension: Code(s): I10 - Essential (primary) hypertension Plan: Continue with blood pressure medication. Decrease salt intake and exercise patient is on amlodipine 5 mg once a day and losartan 50 mg twice a day (5) Cervical spondylosis: Code(s): M47.812 - Spondylosis without myelopathy or radiculopathy, cervical region (6) GERD (gastroesophageal reflux disease): Code(s): K21.9 - Gastro-esophageal reflux disease without esophagitis Plan: Avoid the foods that causes that usually spicy foods, tomato products, juices, coffee, soda and foods that your sensitive to. After eating do not lie down, allow 3-4 hours before in lie down. And keep the head of bed above 30 degrees to avoid the acid from going up. (7) Obesity (BMI 30-39.9): Code(s): E66.9 - Obesity, unspecified Plan: Diet and exercise Orders: Orders Pneumococcal 20 Immunization Today Z23 - Encounter for immunization Referrals Orthopedics Referral M17.11 - Unilateral primary osteoarthritis, right knee Medications: New hydrochlorothiazide 25 mg PO DAILY 30 tabs 3RF I10 - Essential (primary) hypertension tramadol 50 mg PO DAILY 20 tabs 0RF M17.11 - Unilateral primary osteoarthritis, right knee Coding Level of Care Code Est Pt Prev Care 40-64y(01412) Diagnoses Annual physical exam Z00.00 Asthma J45.20 Asthma complication type: uncomplicated Asthma persistence: intermittent Asthma severity: mild Osteoarthritis of right knee M17.11 Hypertension I10 Cervical spondylosis M47.812 GERD (gastroesophageal reflux disease) K21.9 Obesity (BMI 30-39.9) E66.9
== END 2022-09-17 12:53 | disposition home or self-care (01) ==
PROVIDERS: PCP Internal Medicine; Visit Provider Internal Medicine
DX: Z00.00 Encounter for general adult medical examination without abnormal findings (principal); I10 Essential (primary) hypertension; J45.20 Mild intermittent asthma, uncomplicated; Z23 Encounter for immunization; M17.11 Unilateral primary osteoarthritis, right knee; M47.812 Spondylosis without myelopathy or radiculopathy, cervical region; K21.9 Gastro-esophageal reflux disease without esophagitis; E66.9 Obesity, unspecified
CPT/HCPCS: 90471; 90677; 99396

== ENCOUNTER 2022-10-27 08:48 | Outpatient (AMB) | payer OTHER, SELFPAY ==
--- NOTE | 2022-10-27 08:51 | A.OFFVIS_ITS ---
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 Scribed for Dr. Joe Starks by Renee Maldonado, medical assistant secretary, on 10/27/2022 at 9:05 am EST. 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 Patient reports that she has had pain in the right knee for many years now. She fractured her right tibia in 1989, she was placed in a cast for treatment. She has intermittent flair ups of the knee, which involve pain and swelling. During these flair ups she takes tylenol/ ibuprofen which helps mildly. She was given tramadol by her pcp, but she does not want to take narcotics. No previous injections. Wears brace occasionally. Patient also reports pain in her mid back, she reports an injury in 1992 when she injured herself swimming. HPI Comments History of Present Illness Details Mitesh Urena is a 52 year old female who is here due right knee pain. Reports she is experiencing pain in both knees, both elbows and back and has been been dealing with pain since 2018 or prior. Report she has trouble at times walking long distances and at times flares up. She at times feels knots in her joints, takes ibuprofen for pain and rubs it to loosen it up. States she has mild carpel tunnel in wrist with swelling which makes her wake up at night. States she was not diagnosed with anything but specialist stated she was inflamed which causes pain. States she has not seen a teacher of family and consumer science but is interested in seeing one. Informed she is not interested in knee replacement or narcotics. States she fractured her right tibia in 1989. States her mother has MG and diabetes but she does not has these diagnosis. States her cousins has rheumatoid arthritis. [facility] Medical History (Updated 09/17/22 @ 12:18 by Faviola Alonso MD) Joint swelling Asthma Glaucoma Hematuria Hemorrhoid GERD (gastroesophageal reflux disease) Rosacea Exercise induced bronchospasm Hyperthyroidism Chronic kidney disease Surgical History (Updated 10/27/22 @ 08:59 by Kenyetta Duran [facility]) History of surgical procedure on eye proper using laser History of biopsy History of tubal ligation Hx of myringotomy History of endoscopy History of colonoscopy History of D&C History of 2 sections Family History Mother Autoimmune disease Myasthenia gravis Uterine cancer Renal cancer Colon cancer Father Substance use disorder Mental health disorder Maternal Grandfather Heart attack Social History (Updated 10/27/22 @ 09:01 by Kenyetta Duran [facility]) Housing: House Alcohol intake: current Alcohol intake frequency: holidays/special occasions only Patient Tobacco Use Status: Never used Tobacco e-Cigarette/Vaping Use: Never Used Second Hand Smoke Exposure: No service: No Current occupational status: employed 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 Moderate effusion right knee Results Reviewed Results Reviewed: I personally reviewed relevant radiographs. Moderate to severe medial compartment right knee osteoarthritis Assessment & Plan Assessment & Plan (1) Polyarthralgia: Code(s): M25.50 - Pain in unspecified joint (2) Osteoarthritis of right knee: Code(s): M17.11 - Unilateral primary osteoarthritis, right knee Plan: Right knee osteoarthritis. I discussed treatment options including injections, physical therapy, pain management, medical as well as surgical options. At this time she would like to wait and abstain from any particular treatment as the pain is not terrible right now. Should she have a flare-up of her arthritis she will contact me for an injection. I will make a referral to Rheumatology given her polyarthralgia with ?flare-ups?. 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 Orders: Referrals Rheumatology Referral M25.50 - Pain in unspecified joint Coding Level of Care Code New Pt Level 4 (99832) Diagnoses Polyarthralgia M25.50 Osteoarthritis of right knee M17.11
== END 2022-10-27 09:24 | disposition home or self-care (01) ==
PROVIDERS: PCP Internal Medicine; Visit Provider Orthopaedic Surgery
DX: M17.11 Unilateral primary osteoarthritis, right knee (principal)
CPT/HCPCS: 99203

== ENCOUNTER → 2022-10-27 08:48 | Outpatient (BNVA) | payer OTHER, SELFPAY | PROVIDERS: PCP Internal Medicine; Visit Provider Orthopaedic Surgery ==

== ENCOUNTER 2022-12-08 10:56 | Outpatient (AMB) | payer OTHER, SELFPAY ==
[2022-12-08 10:58] VITALS: BP 126/80; PULSE 58; O2SAT 98; BMI 37.9
--- NOTE | 2022-12-08 10:58 | MHC.PC.OV ---
Vital Signs 12/08/22 10:58 Height 5 ft 3 in Weight 214 lb BMI 37.9 BP 126/80 Blood Pressure Location Lt brachial Position Sitting Pulse 58 Pulse Source Pulse Oximeter Pulse Oximetry (%) 98 Oxygen Delivery Method Room Air Intake Visit Reasons: Hypertension Intake Note: Patient here for a follow up hypertension Meat Apprentice Required: No Accompanied by: Self / Same As Patient Allergies lisinopril Allergy (Severe, Verified 12/08/22 11:10) Cough apple Allergy (Intermediate, Verified 12/08/22 11:10) welting Iodinated Contrast Media [IV CONTRAST] Allergy (Intermediate, Verified 12/08/22 11:10) hives, facial swelling and welts iodine [IODINE] Allergy (Intermediate, Verified 12/08/22 11:10) HIVES Penicillins [PENICILLINS] Allergy (Intermediate, Verified 12/08/22 11:10) HIVES amlodipine Adverse Reaction (Intermediate, Verified 12/08/22 11:10) swelling Medication List - Last Reconciled 12/08/22 by TONIE Gregg acetaminophen (Tylenol Extra Strength) 500 mg PO Q6H PRN albuterol sulfate 90 mcg/actuation 2 puffs inhalation Q6H PRN 30 days azelastine 1 spray intranasal BID blood pressure monitor (Blood Pressure Kit) As directed fluticasone propionate 50 mcg/actuation (Flonase Allergy Relief) 1 spray intranasal BID hydrochlorothiazide 25 mg PO DAILY ibuprofen (Motrin IB) 200 mg PO Q6H PRN inhalational spacing device (Aerochamber MV spacer) As directed levocetirizine (Xyzal) 5 mg PO DAILY losartan 50 mg PO BID Symbicort 160-4.5 mcg/actuation (budesonide-formoterol) 2 puffs inhalation BID 30 days NS tramadol 50 mg PO DAILY Tobacco use date assessed: 04/25/22 Dental Screening Dental Screen Date: 12/08/22 Did you have a dental visit in the last 12 months?: Yes Did you have a dental problem in the last 6 months where you did not have access to dental care?: No Was dental information given to patient?: Patient has dentist HPI HPI Comments History of Present Illness Details 52-year-old female past medical history significant for GERD, hypersomnia, hypertension, cervical spondylosis and polyarthralgia. Patient presents today for follow-up visit. Blood pressure below goal in office today 126/80. Patient compliant on current blood pressure medications. Patient reports she was seen by Dr. Starks for her right knee pain she was recommended cortisone injections or surgery however she does not want to proceed with those measures at this time. Patient would like referral to physical therapy for right knee pain, referral entered. Given patient has been experiencing pain in multiple joints she was referred to waterworks employee states she has upcoming appointment in January for this. + ABDULKADIR noted on blood work completed in September. [facility] Medical History (Updated 09/17/22 @ 12:18 by Faviola Alonso MD) Joint swelling Asthma Glaucoma Hematuria Hemorrhoid GERD (gastroesophageal reflux disease) Rosacea Exercise induced bronchospasm Hyperthyroidism Chronic kidney disease Surgical History History of surgical procedure on eye proper using laser History of biopsy History of tubal ligation Hx of myringotomy History of endoscopy History of colonoscopy History of D&C History of 2 sections Family History Mother Autoimmune disease Myasthenia gravis Uterine cancer Renal cancer Colon cancer Father Substance use disorder Mental health disorder Maternal Grandfather Heart attack Social History Housing: House Alcohol intake: current Alcohol intake frequency: holidays/special occasions only Patient Tobacco Use Status: Never used Tobacco e-Cigarette/Vaping Use: Never Used Second Hand Smoke Exposure: No service: No Current occupational status: employed 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 Torsten Win, Dyana Oviedo, Dick Lima and colleagues, with an educational lazaro from [employer]. Review of Systems Const Denies chills, Denies fatigue, Denies fever(s) and Denies poor appetite Eyes Denies no additional complaints ENT Reports Normal hearing present Card Denies chest pain, Denies syncope, Denies rapid heart rate and Denies dyspnea Resp Denies cough and Denies dyspnea GI Denies change in stool character, Denies constipation, Denies diarrhea, Denies nausea and Denies vomiting Denies urinary frequency, Denies dysuria and Denies urinary urgency Neuro Reports Normal hearing present, Denies confusion and Denies syncope Psych Denies confusion Endo Denies fatigue Physical exam (Primary Care) Vital Signs: Last Vital Signs Pulse 58 12/08/22 10:58 BP 126/80 12/08/22 10:58 Pulse Ox 98 12/08/22 10:58 Oxygen Delivery Method Room Air 12/08/22 10:58 BMI result Body Mass Index 37.9 Tobacco/Smoking Status: Tobacco use Status Tobacco use date assessed 04/25/22 12/08/22 11:01 Patient Tobacco Use Status Never used Tobacco 12/08/22 11:01 e-Cigarette/Vaping Use Never Used 12/08/22 11:01 Thrive Assessment: Date of Thrive Assessment Date Thrive assessed 03/03/22 12/08/22 11:01 Const General: No confusion Orientation/consciousness: No confusion HENMT Head: Yes normocephalic and Yes atraumatic Eyes Conjunctivae: conjunctivae normal Chest Chest palpation & inspection: normal inspection of the chest Resp Effort & Inspection: normal respiratory effort Auscultation: clear to auscultation bilaterally, no crackles, no rhonchi and no wheezes Cardio Rate: regular rate Rhythm: regular rhythm Heart sounds: S1 normal heart sound present and S2 normal heart sound present GI Inspection: Yes normal to inspection Neuro General: No confusion Cranial nerves: Yes Normal hearing present Extrem General: No edema Office Procedures Flu Questionnaire Does the patient have a severe egg allergy?: No Does the patient have severe life threatening allergies?: No Does the patient have a fever or illness today?: No Has the patient ever had Guillain-Keystone Syndrome?: No Has the patient ever had any past reaction to a flu shot?: No Immunizations flu vacc [id number] 6mos up(PF) 60 mcg(15 mcgx4)/0.5 mL IM syringe Performing Provider: TONIE Gregg [facility] Administered by: NATALEE Riley on 12/08/22 11:32 Dose Route Admin Location Dispensed Lot Number Expiration Date NDC Intellectual Property Paralegal 0.5 mL IM Left Deltoid 0.5 mL [id number] 08/09/23 [id number] [email or web address] VIS Given Date VIS Provided VIS Publication Date 12/08/22 Single Vaccine 20 Eligibility Eligibility Date Funding Source Not [facility] Eligible 12/08/22 Private Assessment and Plan Assessment & Plan (1) Hypertension: Code(s): I10 - Essential (primary) hypertension Plan: Continue on hydrochlorothiazide and losartan. Follow low-salt diet exercise. (2) Asthma: Comment: with eosinophilia Code(s): J45.909 - Unspecified asthma, uncomplicated Qualifiers: Asthma complication type: uncomplicated Asthma persistence: intermittent Asthma severity: mild Qualified Code(s): J45.20 - Mild intermittent asthma, uncomplicated Plan: Continue on albuterol inhaler as needed and Symbicort. Continue to follow-up pulmonology (3) Knee pain, right: Code(s): M25.561 - Pain in right knee Plan: Referral entered to physical therapy. Can take [id number] ibuprofen or Tylenol as needed for pain. Plan Keep scheduled physical exam in September with PCP or follow-up sooner needed. Orders: Orders Influenza [id number] Immunization Today Z23 - Encounter for immunization PT Evaluation and Treatment Today M25.561 - Pain in right knee Medications: Refilled blood pressure monitor (Blood Pressure Kit) As directed 1 ea 0RF I10 - Essential (primary) hypertension Coding Level of Care Code Est Pt Level 3 (86682) Diagnoses Hypertension I10 Mild intermittent asthma without complication J45.20 Asthma complication type: uncomplicated Asthma persistence: intermittent Asthma severity: mild Knee pain, right M25.561
== END 2022-12-08 11:29 | disposition home or self-care (01) ==
PROVIDERS: PCP Internal Medicine; Visit Provider Nurse Practitioner Family
DX: I10 Essential (primary) hypertension (principal); J45.20 Mild intermittent asthma, uncomplicated; M25.561 Pain in right knee; Z23 Encounter for immunization
CPT/HCPCS: 90471; 90686; 99213

== ENCOUNTER 2023-01-22 08:37 | Outpatient (AMB) | payer OTHER, SELFPAY ==
--- NOTE | 2023-01-22 08:45 | A.OFFVIS_ITS ---
Intake Vital Signs 01/22/23 08:46 Height 5 ft 3 in Weight 214 lb 4.629 oz BMI 38.0 BP 110/90 H Blood Pressure Location Lt brachial Position Sitting Pulse 87 Pulse Source Pulse Oximeter Temp 97 F Temp Source Skin Pulse Oximetry (%) 98 Oxygen Delivery Method Room Air Intake Visit Reasons: Joint Pain Intake Note: New patient referred to us by Dr. Starks, presents today with complaints of joint pain. No prior art consultant. c/o multiple joint pains (back, shoulders, fingers, knees) x years Tried OTC pain meds, Tramadol, water pill for inflammation. 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 Accompanied by: Self / Same As Patient Allergies lisinopril Allergy (Severe, Verified 01/22/23 08:45) Cough apple Allergy (Intermediate, Verified 01/22/23 08:45) welting Iodinated Contrast Media [IV CONTRAST] Allergy (Intermediate, Verified 01/22/23 08:45) hives, facial swelling and welts iodine [IODINE] Allergy (Intermediate, Verified 01/22/23 08:45) HIVES Penicillins [PENICILLINS] Allergy (Intermediate, Verified 01/22/23 08:45) HIVES amlodipine Adverse Reaction (Intermediate, Verified 01/22/23 08:45) swelling Medication List - Last Reconciled 01/22/23 by Hawk Washington MD acetaminophen (Tylenol Extra Strength) 500 mg PO Q6H PRN albuterol sulfate 90 mcg/actuation 2 puffs inhalation Q6H PRN 30 days azelastine 1 spray intranasal BID blood pressure monitor (Blood Pressure Kit) As directed fluticasone propionate 50 mcg/actuation (Flonase Allergy Relief) 1 spray intranasal BID hydrochlorothiazide 25 mg PO DAILY ibuprofen (Motrin IB) 200 mg PO Q6H PRN inhalational spacing device (Aerochamber MV spacer) As directed levocetirizine (Xyzal) 5 mg PO DAILY losartan 50 mg PO BID Symbicort 160-4.5 mcg/actuation (budesonide-formoterol) 2 puffs inhalation BID 30 days NS tramadol 50 mg PO DAILY HPI HPI Comments History of Present Illness Details This is a 52-year-old female who was referred by Orthopedics for evaluation of diffuse pain. Per patient she has had pain for years. He has pain in multiple joints including back, shoulders, fingers, knees, she has known bilateral knee osteoarthritis. She recently found out that her paternal grandmother had psoriatic arthritis. Her mother has adult onset diabetes mellitus and myasthenia gravis. There is no other known family history of an autoimmune rheumatic disease. She denies any history of DVT/PE. Patient goes to the gym 2 to 3 times a week and walks on the treadmill for about an hour and does other exercises such as crunches. She states that she has an unknown kidney disease that causes hematuria and proteinuria, she had a kidney biopsy in the past and per patient the report was inconclusive. [facility] Medical History Joint swelling Asthma Glaucoma Hematuria Hemorrhoid GERD (gastroesophageal reflux disease) Rosacea Exercise induced bronchospasm Hyperthyroidism Chronic kidney disease Surgical History History of surgical procedure on eye proper using laser History of biopsy History of tubal ligation Hx of myringotomy History of endoscopy History of colonoscopy History of D&C History of 2 sections Family History Mother Myasthenia gravis Uterine cancer Renal cancer Colon cancer Diabetes mellitus Father Substance use disorder Mental health disorder Maternal Grandfather Heart attack Paternal Grandmother Psoriatic arthritis Social History Household Members: Spouse and Children Housing: House Alcohol intake: current Alcohol intake frequency: holidays/special occasions only Patient Tobacco Use Status: Never used Tobacco e-Cigarette/Vaping Use: Never Used Second Hand Smoke Exposure: No service: No Current occupational status: employed 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 [employer] Current occupational exposures/hazards: No Cognitive needs: No Hearing needs: No Vision needs: Yes (Glasses) Female Reproductive History Menstrual Total pregnancies: 3 Full term: 2 Ab spontaneous: 1 Review of Systems Const Reports fatigue Eyes Reports dry eyes, Reports itchy eyes and Reports eye pain ENT Details: mouth sores Reports dysphagia and Reports dizziness Resp Reports wheezing GI Reports dysphagia and Reports heartburn Reports nocturia and Reports vaginal dryness Musc Reports arthralgias, Reports joint swelling and Reports stiffness Skin/Breast Reports rash Neuro Reports dizziness Psych Reports abnormal sleep pattern Endo Reports fatigue Aller/Immun Reports itchy eyes and Reports wheezing Physical Exam Vital Signs: Last Vital Signs Temp 97 F 01/22/23 08:46 Pulse 87 01/22/23 08:46 BP 110/90 H 01/22/23 08:46 Pulse Ox 98 01/22/23 08:46 Oxygen Delivery Method Room Air 01/22/23 08:46 BMI result Body Mass Index 38.0 Const General: cooperative, healthy appearing and comfortable Nutritional Appearance: obese morbidly obese Orientation/consciousness: patient oriented x3 Limitations: no limitations HEENT Head: Yes normocephalic and Yes atraumatic Mouth: moist mucous membranes Resp Effort & Inspection: normal respiratory effort and able to speak in complete sentences Auscultation: clear to auscultation bilaterally Cardio Rate: regular rate Rhythm: regular rhythm Skin General skin exam: no rashes or lesions noted Neuro General: patient oriented x3 Extrem Other: No active synovitis Negative straight leg raise test on the right, right knee pain with flexion Right groin pain with flexion adduction and external rotation of right hip Positive straight leg raise test on the left Negative Fabere test bilaterally No nail pitting Normal nailfold capillaroscopy Assessment & Plan Assessment & Plan (1) Polyarthralgia: Code(s): M25.50 - Pain in unspecified joint Plan: This is a 52-year-old female who presents for evaluation of multiple joint pain. I do not see any signs of an autoimmune rheumatic disease. She has some fea tures of generalized osteoarthritis. Follow-up as needed (2) ABDULKADIR positive: Code(s): R76.8 - Other specified abnormal immunological findings in serum Plan: Positive ABDULKADIR 1-160. As mentioned above I do not see any evidence of an autoimmune rheumatic disease. About 15% of the population can have a positive ABDULKADIR with no clinical significance. Plan I spent 45 minutes reviewing patient's chart, evaluating patient, counseling patient and documenting in the chart Coding Level of Care Code New Pt Level 4 (15553) Diagnoses Polyarthralgia M25.50 ABDULKADIR positive R76.8
[2023-01-22 08:46] VITALS: BP 110/90; PULSE 87; TEMP 36.1; O2SAT 98; BMI 38.0
== END 2023-01-22 09:15 | disposition home or self-care (01) ==
PROVIDERS: PCP Internal Medicine; Visit Provider Student in an Organized Health Care Education/Training Program
DX: M25.50 Pain in unspecified joint (principal); R76.8 Other specified abnormal immunological findings in serum
CPT/HCPCS: 99204

== ENCOUNTER → 2023-01-22 08:37 | Outpatient (BNVA) | payer OTHER, SELFPAY | PROVIDERS: PCP Internal Medicine; Visit Provider Student in an Organized Health Care Education/Training Program ==

== ENCOUNTER 2023-04-14 16:34 | Outpatient (AMB) | payer OTHER, SELFPAY ==
--- NOTE | 2023-04-14 16:36 | A.OFFPC_ITS ---
Vital Signs 04/14/23 16:37 Height 5 ft 3 in Weight 212 lb BMI 37.6 BP 112/68 Blood Pressure Location Lt brachial Position Sitting Pulse 66 Pulse Source Pulse Oximeter Temp Source Skin Pulse Oximetry (%) 99 Oxygen Delivery Method Room Air Intake Visit Reasons: Pain med follow up Intake Note: Patient is here to follow up on medication. Interpreter Translator Required: No Allergies lisinopril Allergy (Severe, Verified 04/14/23 16:36) Cough apple Allergy (Intermediate, Verified 04/14/23 16:36) welting Iodinated Contrast Media [IV CONTRAST] Allergy (Intermediate, Verified 04/14/23 16:36) hives, facial swelling and welts iodine [IODINE] Allergy (Intermediate, Verified 04/14/23 16:36) HIVES Penicillins [PENICILLINS] Allergy (Intermediate, Verified 04/14/23 16:36) HIVES amlodipine Adverse Reaction (Intermediate, Verified 04/14/23 16:36) swelling Tobacco use date assessed: 04/14/23 Dental Screening Dental Screen Date: 04/14/23 Did you have a dental visit in the last 12 months?: Yes Did you have a dental problem in the last 6 months where you did not have access to dental care?: No Was dental information given to patient?: Patient has dentist HPI Pain med follow up HPI Details 52-year-old obese female with hypertensi on asthma and right knee pain last seen in November 2022. Patient is due for mammogram and up-to-date with colonoscopy. Review of the notes was seen by Nephrology January 2023 diagnosis of proteinuria with preserved renal function minimal change presently on losartan 100 mg once a day. Patient also follows up with Rheumatology for polyarthralgia patient does not have any autoimmune rheumatic disease some features of generalized osteoarthritis though.. Patient was seen by the nurse practitioner in November 2022 slipped stairs 6 weeks ago having pain sacrum - had ear infection. complains of leg cramps also. discused that HCTZ can do this. took out tympanostomy tube blue R ear [facility] Medical History Joint swelling Asthma Glaucoma Hematuria Hemorrhoid GERD (gastroesophageal reflux disease) Rosacea Exercise induced bronchospasm Hyperthyroidism Chronic kidney disease Surgical History History of surgical procedure on eye proper using laser History of biopsy History of tubal ligation Hx of myringotomy History of endoscopy History of colonoscopy History of D&C History of 2 sections Family History Mother Myasthenia gravis Uterine cancer Renal cancer Colon cancer Diabetes mellitus Father Substance use disorder Mental health disorder Maternal Grandfather Heart attack Paternal Grandmother Psoriatic arthritis Social History Household Members: Spouse and Children Housing: House Alcohol intake: current Alcohol intake frequency: holidays/special occasions only Patient Tobacco Use Status: Never used Tobacco e-Cigarette/Vaping Use: Never Used Second Hand Smoke Exposure: No service: No Current occupational status: employed 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 How often do you have a drink containing alcohol?: Monthly or less 2. How many drinks containing alcohol do you have on a typical day when you are drinking?: 1 or 2 3. How often do you have six or more drinks on one occasion?: Never Total Score: 1 Score Reviewed/Action Taken: No JONATHAN-7 AMB Questionnaire JONATHAN-7 Date JONATHAN - 7 assessed: 04/14/23 Source: Developed by Drs. Torsten Win, Dyana Oviedo, Dick Lima and colleagues, with an educational lazaro from [employer] Physical exam (Primary Care) Vital Signs: Last Vital Signs Pulse 66 04/14/23 16:37 BP 112/68 04/14/23 16:37 Pulse Ox 99 04/14/23 16:37 Oxygen Delivery Method Room Air 04/14/23 16:37 BMI result Body Mass Index 37.6 Tobacco/Smoking Status: Tobacco use Status Tobacco use date assessed 04/14/23 04/14/23 16:37 Patient Tobacco Use Status Never used Tobacco 04/14/23 16:37 e-Cigarette/Vaping Use Never Used 04/14/23 16:37 Thrive Assessment: Date of Thrive Assessment Date Thrive assessed 04/14/23 04/14/23 16:37 Const General: alert; No acute distress HENMT Other: Right ear noted to have the tympanostomy tube on the wall and the TM is intact, left TM is normal Eyes Conjunctivae: conjunctivae normal Resp Auscultation: clear to auscultation bilaterally Cardio Rate: regular rate Rhythm: regular rhythm GI Inspection: Yes normal to inspection Extrem General: Yes normal to inspection and No edema Assessment and Plan Assessment & Plan (1) Osteoarthritis of right knee: Code(s): M17.11 - Unilateral primary osteoarthritis, right knee Plan: Patient has seen ortho as well as Rheumatology for the arthritis (2) Asthma: Comment: with eosinophilia Code(s): J45.909 - Unspecified asthma, uncomplicated Qualifiers: Asthma severity: mild Asthma persistence: intermittent Asthma complication type: uncomplicated Qualified Code(s): J45.20 - Mild intermittent asthma, uncomplicated Plan: Continue with inhaler and Symbicort. Remember to rinse mouth after using them (3) Hypertension: Code(s): I10 - Essential (primary) hypertension Plan: Continue with blood pressure medication. Decrease salt intake and exercise presently on losartan 50 mg twice a day and hydrochlorothiazide 25 mg once a day (4) GERD (gastroesophageal reflux disease): Code(s): K21.9 - Gastro-esophageal reflux disease without esophagitis Plan: Avoid the foods that causes that usually spicy foods, tomato products, juices, coffee, soda and foods that your sensitive to. After eating do not lie down, allow 3-4 hours before in lie down. And keep the head of bed above 30 degrees to avoid the acid from going up. (5) Obesity (BMI 30-39.9): Code(s): E66.9 - Obesity, unspecified Plan: Diet and exercise Orders: Orders Vitamin D 25-OH Total Today M17.11 - Unilateral primary osteoarthritis, right knee Medications: Changed From hydrochlorothiazide 25 mg PO DAILY 90 tabs 1RF I10 - Essential (primary) hypertension To hydrochlorothiazide 12.5 mg (1/2 x 25 mg) PO DAILY 90 tabs 1RF I10 - Essential (primary) hypertension Refilled tramadol 50 mg PO DAILY 20 tabs 0RF M17.11 - Unilateral primary osteoarthritis, right knee Coding Level of Care Code Est Pt Level 4 (48392) Diagnoses Osteoarthritis of right knee M17.11 Mild intermittent asthma without complication J45.20 Asthma severity: mild Asthma persistence: intermittent Asthma complication type: uncomplicated Hypertension I10 GERD (gastroesophageal reflux disease) K21.9 Obesity (BMI 30-39.9) E66.9
[2023-04-14 16:37] VITALS: BP 112/68; PULSE 66; O2SAT 99; BMI 37.6
== END 2023-04-14 17:25 | disposition home or self-care (01) ==
PROVIDERS: PCP Internal Medicine; Visit Provider Internal Medicine
DX: M17.11 Unilateral primary osteoarthritis, right knee (principal); E66.9 Obesity, unspecified; Z68.37 Body mass index [BMI] 37.0-37.9, adult; J45.20 Mild intermittent asthma, uncomplicated; I10 Essential (primary) hypertension; K21.9 Gastro-esophageal reflux disease without esophagitis
CPT/HCPCS: 99214

== ENCOUNTER 2023-04-20 15:41 | Outpatient (AMB) | payer OTHER, SELFPAY ==
--- NOTE | 2023-04-20 15:52 | A.OFFVIS_ITS ---
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 The patient states that she has been diagnosed with pneumonia several times once back in 2018 2019 and another time in February 2022. The patient usually gets symptoms of shortness of breath chest tightness with ?itchiness ?in her substernal area. Feels like his internal. Moderate severity. Typically worse at nighttime. She was evaluated for allergies in which she had noted to have significant allergies and at 1 point did receive allergy shots. She does have a rescue inhaler that she uses as needed. She did undergo pulmonary function studies in the past demonstrating no obstructive ventilatory defects. She understood from that study that she did not have any airway issues. We did review her chest x-rays demonstrating initially airspace disease primarily in the right hemithorax. Her blood work that she has had past demonstrates significant eosinophilia. 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 The patient does respond well to prednisone back in February of this year. 09/15/2022 the [facility]. The patient overall is doing well. She did have the Symbicort but she does not use it regularly. The patient does not like to take too many medications. We did review the blood work. The eosinophilic levels are slightly better. May have been because she had been on prednisone. In addition to that the allergy testing was significant for significant dust mite allergies and other environmental allergens. The patient clinically is doing okay right now. Summer seems to be a good month for her. Explained to her that the Symbicort she can use as needed. She did not have her pulmonary function studies. Will have her come back in 6 months with PFTs. She is very upset about her ongoing symptoms with joint pain and swelling. Denies any rashes. 04/20/2023 the patient is here for a pulm onary follow-up visit. the patient has been doing better. Tolerating the Symbicort. Also has a rescue inhaler. She did have a respiratory illness and she managed by taking her medications. Still, she does have a cough that is lingering. Moderate severity. Intermittent. Of times productive. We did review her last chest x-ray from April 2022 demonstrating no acute disease. Her blood work demonstrating some allergies. At this point the patient is doing well will going to continue with current therapy. No additional testing warranted. The patient will follow-up in a year's time or sooner if she develops any worsening symptoms. [facility] Medical History Joint swelling Asthma Glaucoma Hematuria Hemorrhoid GERD (gastroesophageal reflux disease) Rosacea Exercise induced bronchospasm Hyperthyroidism Chronic kidney disease Surgical History History of surgical procedure on eye proper using laser History of biopsy History of tubal ligation Hx of myringotomy History of endoscopy History of colonoscopy History of D&C History of 2 sections Family History Mother Myasthenia gravis Uterine cancer Renal cancer Colon cancer Diabetes mellitus Father Substance use disorder Mental health disorder Maternal Grandfather Heart attack Paternal Grandmother Psoriatic arthritis Social History Household Members: Spouse and Children Housing: House Alcohol intake: current Alcohol intake frequency: holidays/special occasions only Patient Tobacco Use Status: Never used Tobacco e-Cigarette/Vaping Use: Never Used Second Hand Smoke Exposure: No service: No Current occupational status: employed 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 Current occupational exposures/hazards: No Cognitive needs: No Hearing needs: No Vision needs: Yes (Glasses) Review of Systems Const Denies fever(s) Eyes Denies blurry vision and Reports dry eyes ENT Reports nasal congestion Card Denies chest pain and Denies palpitations Resp Reports cough and Reports wheezing GI Reports no additional complaints Musc Reports no additional complaints, Reports myalgias, Reports arthralgias and Reports joint swelling Skin/Breast Reports rash Neuro Reports no additional complaints Psych Reports no additional complaints Endo Denies palpitations Rey/Lymph Denies easy bleeding, Denies easy bruising and Denies lymphadenopathy Aller/Immun Reports wheezing Physical Exam Vital Signs: Last Vital Signs Pulse 69 04/20/23 15:54 Pulse Ox 99 04/20/23 15:54 Oxygen Delivery Method Room Air 04/20/23 15:54 BMI result Body Mass Index 37.2 Const General: comfortable HEENT Head: Yes normocephalic Eyes General: appearance normal, both eyes and all related structures Neck Neck: Yes supple Chest Chest palpation & inspection: normal inspection of the chest Resp Effort & Inspection: normal respiratory effort and Actively coughing Auscultation: clear to auscultation bilaterally and no wheezes Cardio Rhythm: regular rhythm Heart sounds: S1 normal heart sound present and S2 normal heart sound present GI Palpation (GI): Soft to palpation Skin General skin exam: no rashes or lesions noted Extrem General: Yes no clubbing, cyanosis or edema Assessment & Plan Assessment & Plan (1) Asthma: Comment: with eosinophilia Code(s): J45.909 - Unspecified asthma, uncomplicated Qualifiers: Asthma complication type: uncomplicated Asthma persistence: intermittent Asthma severity: mild Qualified Code(s): J45.20 - Mild intermittent asthma, uncomplicated (2) Chronic cough: Comment: 2014 pulmonary function test normal Code(s): R05.3 - Chronic cough (3) Joint swelling: Code(s): M25.40 - Effusion, unspecified joint Plan continue Symbicort, as needed ISAC as needed start Doxycycline start Benzonates as needed for cough F/U 12 months Medications: New doxycycline monohydrate 100 mg PO BID 14 days 28 tabs 0RF benzonatate 200 mg PO BID 30 days PRN 60 caps 0RF cough Coding Level of Care Code Est Pt Level 4 (13468) Diagnoses Mild intermittent asthma without complication J45.20 Asthma complication type: uncomplicated Asthma persistence: intermittent Asthma severity: mild Chronic cough R05.3 Joint swelling M25.40 Time Spent (min) 17
[2023-04-20 15:54] VITALS: PULSE 69; O2SAT 99; BMI 37.2
== END 2023-04-20 16:11 | disposition home or self-care (01) ==
PROVIDERS: PCP Internal Medicine; Visit Provider Hospitalist
DX: J45.20 Mild intermittent asthma, uncomplicated (principal); R05.3 Chronic cough; M25.40 Effusion, unspecified joint
CPT/HCPCS: 99214

== ENCOUNTER → 2023-04-20 15:41 | Outpatient (BNVA) | payer OTHER, SELFPAY | PROVIDERS: PCP Internal Medicine; Visit Provider Hospitalist ==

== ENCOUNTER 2023-07-20 13:02 | Outpatient (AMB) | payer OTHER, SELFPAY ==
--- NOTE | 2023-07-20 13:52 | MHC.OFFWIV ---
Intake Vital Signs 07/20/23 13:54 Height 5 ft 3 in BP 130/80 Blood Pressure Location Rt brachial Position Sitting Pulse 68 Pulse Source Pulse Oximeter Temp 99.4 F Temp Source Oral Pulse Oximetry (%) 99 Oxygen Delivery Method Room Air Intake Visit Reasons: EP Sinus Infection [phone] Intake Note: pt is here c/o low grade fever and sinus and possible pneumonia Patient Tobacco Use Status: Never used Tobacco Allergies lisinopril Allergy (Severe, Verified 07/20/23 13:53) Cough apple Allergy (Intermediate, Verified 07/20/23 13:53) welting Iodinated Contrast Media [IV CONTRAST] Allergy (Intermediate, Verified 07/20/23 13:53) hives, facial swelling and welts iodine [IODINE] Allergy (Intermediate, Verified 07/20/23 13:53) HIVES Penicillins [PENICILLINS] Allergy (Intermediate, Verified 07/20/23 13:53) HIVES amlodipine Adverse Reaction (Intermediate, Verified 07/20/23 13:53) swelling Do you need a note to return to daycare/school/sports/work: Yes HPI HPI Comments History of Present Illness Details Patient presents to the walk in today for sick visit Complaining of 1 week cough, sinus congestion Denies fever, chest pain, shortness of breath, palpitations, syncope, weakness Has been taking OTC medications with minimal improvement. Concern for sinus infection, endorses pressure surrounding her teeth History of sinus infection and pneumonia. Wants to treat before turns to pneumonia Has taken Z-Kris in the past with good effect PFSH Medical History Joint swelling Asthma Glaucoma Hematuria Hemorrhoid GERD (gastroesophageal reflux disease) Rosacea Exercise induced bronchospasm Hyperthyroidism Chronic kidney disease Surgical History History of surgical procedure on eye proper using laser History of biopsy History of tubal ligation Hx of myringotomy History of endoscopy History of colonoscopy History of D&C History of 2 sections Family History Mother Myasthenia gravis Uterine cancer Renal cancer Colon cancer Diabetes mellitus Father Substance use disorder Mental health disorder Maternal Grandfather Heart attack Paternal Grandmother Psoriatic arthritis Social History Household Members: Spouse and Children Housing: House Alcohol intake: current Alcohol intake frequency: holidays/special occasions only Patient Tobacco Use Status: Never used Tobacco e-Cigarette/Vaping Use: Never Used Second Hand Smoke Exposure: No service: No Current occupational status: employed 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 Answers questions appropriately. Fully engaged in examination. Skin: warm, dry, intact HEENT: TMs intact bilaterally, without erythema or exudate. Posterior pharynx without erythema or exudate. Sclera without icterus or injection. Cardiac: External chest normal in appearance. Respiratory: +cough. LSCTAB. Abdomen: without gross distension. Neurological: Oriented to person, place, time and situation. Thought process intact. Psychiatric: Appropriate mood and affect. Good judgment and insight. Assessment & Plan Assessment & Plan (1) Upper respiratory tract infection: Code(s): J06.9 - Acute upper respiratory infection, unspecified Plan Continue with Benzonatate as prescribed by PCP Z-Kris as directed Rest, drink plenty of fluids, tylenol or motrin as needed. Recommend taking OTC nasal decongestants or flonase. Follow up with pcp or in clinic for any new or worsening symptoms. Go to ER for shortness of breath, chest pain, palpitations, weakness, dizziness. Medications: New azithromycin For 250 mg dose pack: take 500 mg today (day 1), then 250 mg for 4 days (days 2-5) PO 6 tabs 0RF Coding Level of Care Code Est Pt Level 3 (14032) Diagnoses Upper respiratory tract infection J06.9
[2023-07-20 13:54] VITALS: BP 130/80; PULSE 68; TEMP 37.4; O2SAT 99
== END 2023-07-20 14:29 | disposition home or self-care (01) ==
PROVIDERS: PCP Internal Medicine; Visit Provider Registered Nurse Emergency
DX: J06.9 Acute upper respiratory infection, unspecified (principal)
CPT/HCPCS: 99213

== ENCOUNTER 2023-09-16 07:57 | Outpatient (REF) | payer OTHER, SELFPAY ==
[2023-09-16 08:27] LABS: MANUAL DIFF FLAG NO
[2023-09-16 09:46] LABS: Basophils Absolute Auto 0.1 X10*3/uL (0.0-0.2); Basophils Percent Auto 0.7 % (0-2); Eosinophils Absolute Auto 0.5 X10*3/uL (0.0-0.4); Eosinophils Percent Auto 4.9 % (0-4); Hemoglobin 15.1 g/dl (12.0-16.0); Imm Gran Abs Auto 0.03 X10*3/uL (0.00-0.03); Imm Gran Pct Auto 0.3 % (0.0-0.4); Lymphocytes Absolute Auto 2.7 X10*3/uL (1.2-4.9); Lymphocytes Percent Auto 28.5 % (20-40); Mean Corpuscular HGB Conc 33.6 g/dl (31.0-35.0); Mean Corpuscular Hemoglobin 29.7 pg (27.0-33.0); Mean Corpuscular Volume 88.4 fL (80.0-98.0); Mean Platelet Volume 10.1 fL (9.4-12.3); Monocytes Absolute Auto 0.7 X10*3/uL (0.1-1.2); Monocytes Percent Auto 7.3 % (2-11); Neutrophils Absolute Auto 5.6 x10*3/uL (2.0-8.3); Neutrophils Percent Auto 58.3 % (45-73); Platelet Count 226 X10*3/uL (160-400); Red Blood Count 5.09 X10*6/uL (4.20-5.50); Red Cell Distribution Width 13.1 % (11.0-16.0); White Blood Count 9.6 X10*3/uL (4.8-10.8)
[2023-09-16 10:33] LABS: Anion Gap 15 (12-20); Bilirubin Total 0.5 mg/dL (0.0-1.0); Blood Urea Nitrogen 21 mg/dL (9-16); Calcium 9.5 mg/dL (8.4-10.2); Carbon Dioxide 23 mmol/L (22-29); Chloride 103 mmol/L (96-108); Estimated Glomerular Filt Rate > 60; Glucose Random 111 mg/dL (60-115); Potassium 3.4 mmol/L (3.3-5.1); Sodium 138 mmol/L (135-145)
[2023-09-16 10:34] LABS: Alanine Aminotransferase 46 U/L (0-31); Albumin Level 3.9 g/dL (3.5-5.0); Alkaline Phosphatase 74 U/L (39-117); Aspartate Amino Transferase 28 U/L (5-31); Cholesterol 157 mg/dL (<200); HDL Cholesterol 39 mg/dL (>40); LDL Cholesterol Calculated 86 mg/dL (<100); Total Protein 7.1 g/dL (6.5-8.0); Triglycerides 161 mg/dL (<150)
[2023-09-16 10:45] LABS: Free T4 (Free Thyroxine) 1.11 ng/dL (0.71-1.85); Thyroid Stimulating Hormone 1.57 uIU/mL (0.32-4.0); Vitamin D 25-OH Total 52.4 ng/mL (>30)
[2023-09-16 10:54] LABS: Folate 13.2 ng/mL (> or = 4.0); Vitamin B12 782 pg/mL (200-900)
== END 2023-09-16 07:58 | disposition home or self-care (01) ==
LOC: HO.LAB 07:57
PROVIDERS: PCP Internal Medicine; Visit Provider Internal Medicine
DX: K21.9 Gastro-esophageal reflux disease without esophagitis (principal); E78.00 Pure hypercholesterolemia, unspecified; M17.11 Unilateral primary osteoarthritis, right knee
CPT/HCPCS: 36415; 80053; 80061; 82306; 82607; 82746; 84439; 84443; 85025

== ENCOUNTER 2023-09-21 12:19 | Outpatient (AMB) | payer OTHER, SELFPAY ==
--- NOTE | 2023-09-21 12:22 | A.OFFPC_ITS ---
Vital Signs 09/21/23 12:23 Height 5 ft 3 in Weight 216 lb BMI 38.3 BP 128/70 Blood Pressure Location Lt brachial Position Sitting Pulse 57 Pulse Source Pulse Oximeter Pulse Oximetry (%) 99 Oxygen Delivery Method Room Air Intake Visit Reasons: Annual Exam Allergies lisinopril Allergy (Severe, Verified 09/21/23 12:23) Cough apple Allergy (Intermediate, Verified 09/21/23 12:23) welting Iodinated Contrast Media [IV CONTRAST] Allergy (Intermediate, Verified 09/21/23 12:23) hives, facial swelling and welts iodine [IODINE] Allergy (Intermediate, Verified 09/21/23 12:23) HIVES Penicillins [PENICILLINS] Allergy (Intermediate, Verified 09/21/23 12:23) HIVES amlodipine Adverse Reaction (Intermediate, Verified 09/21/23 12:23) swelling Medication List - Last Reconciled 09/21/23 by Faviola Alonso MD acetaminophen (Tylenol Extra Strength) 500 mg PO Q6H PRN albuterol sulfate 90 mcg/actuation 2 puffs inhalation Q6H PRN 30 days azelastine 1 spray intranasal BID blood pressure monitor (Blood Pressure Kit) As directed fluticasone propionate 50 mcg/actuation (Flonase Allergy Relief) 1 spray intranasal BID hydrochlorothiazide 12.5 mg (1/2 x 25 mg) PO DAILY inhalational spacing device (Aerochamber MV spacer) As directed levocetirizine (Xyzal) 5 mg PO DAILY losartan 50 mg PO BID Symbicort 160-4.5 mcg/actuation (budesonide-formoterol) 2 puffs inhalation BID 30 days NS tramadol 50 mg PO DAILY Tobacco use date assessed: 04/14/23 Dental Screening Dental Screen Date: 09/21/23 Did you have a dental visit in the last 12 months?: Yes Did you have a dental problem in the last 6 months where you did not have access to dental care?: No Was dental information given to patient?: Patient has dentist HPI Annual Exam HPI Details 53-year-old obese female with asthma hyp ertension GERD coming in for physical exam. Last seen in April 2023. Patient's mammogram is up-to-date colonoscopy up-to-date March 2019 5 years. Review of the notes Urgent Center visit in July for sinus infection treated with Z-Kris. Patient also follows up with Pulmonary was seen in April 2023 for the cough diagnosis of asthma treated with Symbicort and was given an antibiotic at that time also. Doxycycline. P atient states missed doses of losartan and the BP is controlled patient wound like to decrease losartan to once a day. advisded to monitor. decline rectal exam [facility] Medical History Joint swelling Asthma Glaucoma Hematuria Hemorrhoid GERD (gastroesophageal reflux disease) Rosacea Exercise induced bronchospasm Hyperthyroidism Chronic kidney disease Surgical History History of surgical procedure on eye proper using laser History of biopsy History of tubal ligation Hx of myringotomy History of endoscopy History of colonoscopy History of D&C History of 2 sections Family History (Updated 09/21/23 @ 12:44 by Faviola Alonso MD) Mother Myasthenia gravis Uterine cancer Renal cancer Diabetes mellitus Father Substance use disorder Mental health disorder Maternal Grandfather Heart attack Paternal Grandmother Psoriatic arthritis Maternal Grandmother Colon cancer Social History (Updated 09/21/23 @ 12:45 by Faviola Alonso MD) Household Members: Spouse and Children Housing: House Alcohol intake: current Alcohol intake frequency: holidays/special occasions only Comment: once Q 2 month 2 drinks Patient Tobacco Use Status: Former Tobacco user Tobacco use type: Cigarette Years Smoked: pack in college- 1989 e-Cigarette/Vaping Use: Never Used Second Hand Smoke Exposure: No service: No Current occupational status: employed 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 1. Little interest or pleasure in doing things: not at all 2. Feeling down, depressed, or hopeless: not at all 3. Trouble falling or staying asleep, or sleeping too much: not at all 4. Feeling tired or having little energy: not at all 5. Poor appetite or overeating: not at all 6. Feeling bad about yourself - or that you are a failure or have let yourself or your family down: not at all 7. Trouble concentrating on things, such as reading the newspaper or watching television: not at all 8. Moving or speaking so slowly that other people could have noticed. Or the opposite - being so fidgety or restless that you have been moving around a lot more than usual: not at all 9. Thoughts that you would be better off or of hurting yourself in some way: not at all Total score: 0 Depression Screening Interpretation: Negative Depression Screening Done: Yes 35947 - PHQ-9 Billing: Yes Source: Developed by Drs. Torsten Win, Dyana Oviedo, Dick Lima and colleagues, with an educational lazaro from [employer]. Thrive Questionnaire Date Thrive assessed: 04/14/23 AUDIT C Alcohol Use Questionnaire (AUDIT-C) 1. How often do you have a drink containing alcohol?: Monthly or less 2. How many drinks containing alcohol do you have on a typical day when you are drinking?: 1 or 2 3. How often do you have six or more drinks on one occasion?: Never Total Score: 1 Score Reviewed/Action Taken: No JONATHAN-7 AMB Questionnaire JONATHAN-7 Date JONATHAN - 7 assessed: 09/21/23 Feeling nervous, anxious, or on edge: 1 = Several days Not being able to stop or control worryin = Not at all Worrying too much about different things: 0 = Not at all Trouble relaxin = Not at all Being so restless that it is hard to sit still: 0 = Not at all Becoming easily annoyed or irritable: 0 = Not at all Feeling afraid as if something awful might happen: 0 = Not at all Total JONATHAN-7 score (0-4 normal; 5-9 mild; 10-14 moderate; 15-21 severe): 1 Source: Developed by Drs. Torsten Win, Dyana Oviedo, Dick Lima and colleagues, with an educational lazaro from [employer]. Review of Systems Const Denies poor appetite and Denies weakness Eyes Denies no additional complaints ENT Reports Normal hearing present, Denies dizziness, Denies nasal congestion, Denies tinnitus and Denies sore throat Card Denies chest pain, Denies syncope, Denies rapid heart rate and Denies dyspnea Resp Denies cough and Denies dyspnea GI Denies change in stool character, Reports constipation, Denies diarrhea, Denies nausea and Denies vomiting Denies urinary frequency, Denies difficulty voiding and Denies dysuria Neuro Reports Normal hearing present, Denies confusion, Denies dizziness, Denies syncope and Denies weakness Psych Denies confusion Physical exam (Primary Care) Vital Signs: Last Vital Signs Pulse 57 09/21/23 12:23 BP 128/70 09/21/23 12:23 Pulse Ox 99 09/21/23 12:23 Oxygen Delivery Method Room Air 09/21/23 12:23 BMI result Body Mass Index 38.3 Tobacco/Smoking Status: Tobacco use Status Tobacco use date assessed 04/14/23 09/21/23 12:28 Patient Tobacco Use Status Former Tobacco user 09/21/23 12:28 Tobacco use type Cigarette 09/21/23 12:28 e-Cigarette/Vaping Use Never Used 09/21/23 12:28 PHQ-9: PHQ-9 Score PHQ-9: Total score 0 09/21/23 12:28 Depression Screening Interpretation: Negative Thrive Assessment: Date of Thrive Assessment Date Thrive assessed 04/14/23 09/21/23 12:28 Const General: No confusion Orientation/consciousness: No confusion HENMT Head: Yes normocephalic Ears: external ears normal and TM's normal bilaterally Face and sinus: Yes normal facial exam Mouth: moist mucous membranes Throat: Yes tonsils normal Eyes Conjunctivae: conjunctivae normal Pupils: Equal, round and reactive pupils present and Pupil accommodation reflex normal Direct Ophthalmoscopy: normal light reflex Neck Neck: No lymphadenopathy Thyroid: Thyroid normal Chest Chest palpation & inspection: normal inspection of the chest Resp Effort & Inspection: normal respiratory effort and no audible wheezes Auscultation: clear to auscultation bilaterally, no crackles, no wheezes and lung sounds not diminished Cardio Rate: regular rate Rhythm: regular rhythm Peripheral pulses: radial pulses present and dorsalis pedis present GI Palpation (GI): no masses Auscultation: normal bowel sounds and normoactive bowel sounds Rectal Exam - Female: deferred Skin General skin exam: no rashes or lesions noted Rashes: no rashes Neuro General: No confusion Cranial nerves: Yes Equal, round and reactive pupils present and Yes Normal hearing present Cognition (Neuro): normal cognition Gait exam (Neuro): Normal gait present Motor exam (neuro): 5/5 motor strength present throughout Deep tendon reflexes (DTR's): Right brachioradialis reflex intensity grade: 2+, Left brachioradialis reflex intensity grade: 2+, Right patellar reflex intensity grade: 2+ and Left patellar reflex intensity grade: 2+ Extrem General: No edema Assessment and Plan Assessment & Plan (1) Annual physical exam: Code(s): Z00.00 - Encounter for general adult medical examination without abnormal findings Plan: Patient is advised to eat healthy, keep well hydrated, keep active and have adequate sleep. (2) Asthma: Comment: with eosinophilia Code(s): J45.909 - Unspecified asthma, uncomplicated Qualifiers: Asthma severity: mild Asthma persistence: intermittent Asthma complication type: uncomplicated Qualified Code(s): J45.20 - Mild intermittent asthma, uncomplicated Plan: Patient has seen Pulmonary and has been prescribed a controller as well as short-acting beta agonist. (3) Hypertension: Code(s): I10 - Essential (primary) hypertension Plan: Continue with blood pressure medication. Decrease salt intake and exercise presently on hydrochlorothiazide 12.5 mg once a day and losartan 50 mg twice a day (4) Obesity (BMI 30-39.9): Code(s): E66.9 - Obesity, unspecified Plan: Diet and exercise (5) GERD (gastroesophageal reflux disease): Code(s): K21.9 - Gastro-esophageal reflux disease without esophagitis Plan: Avoid the foods that causes that usually spicy foods, tomato products, juices, coffee, soda and foods that your sensitive to. After eating do not lie down, allow 3-4 hours before in lie down. And keep the head of bed above 30 degrees to avoid the acid from going up. (6) LFT elevation: Code(s): R79.89 - Other specified abnormal findings of blood chemistry Plan: Discussed about the blood work, ultrasound as well as repeat test requested. (7) Impaired fasting blood sugar: Code(s): R73.01 - Impaired fasting glucose (8) Hyperthyroidism: Code(s): E05.90 - Thyrotoxicosis, unspecified without thyrotoxic crisis or storm Orders: Orders US thyroid Today E05.90 - Thyrotoxicosis, unspecified without thyrotoxic crisis or storm Hemoglobin A1c Today R73.01 - Impaired fasting glucose Medications: Changed From losartan 50 mg PO BID I10 - Essential (primary) hypertension To losartan 50 mg PO DAILY I10 - Essential (primary) hypertension Refilled tramadol 50 mg PO DAILY 20 tabs 0RF M17.11 - Unilateral primary osteoarthritis, right knee Symbicort 160-4.5 mcg/actuation (budesonide-formoterol) 2 puffs inhalation BID 30 days 10.2 grams 11RF NS J44.9 - Chronic obstructive pulmonary disease, unspecified Coding Level of Care Code Est Pt Prev Care 40-64y(78925) Diagnoses Annual physical exam Z00.00 Mild intermittent asthma without complication J45.20 Asthma severity: mild Asthma persistence: intermittent Asthma complication type: uncomplicated Hypertension I10 Obesity (BMI 30-39.9) E66.9 GERD (gastroesophageal reflux disease) K21.9 LFT elevation R79.89 Impaired fasting blood sugar R73.01 Hyperthyroidism E05.90
[2023-09-21 12:23] VITALS: BP 128/70; PULSE 57; O2SAT 99; BMI 38.3
== END 2023-09-21 13:21 | disposition home or self-care (01) ==
PROVIDERS: PCP Internal Medicine; Visit Provider Internal Medicine
DX: Z00.00 Encounter for general adult medical examination without abnormal findings (principal); E66.9 Obesity, unspecified; J45.20 Mild intermittent asthma, uncomplicated; Z68.38 Body mass index [BMI] 38.0-38.9, adult; I10 Essential (primary) hypertension; K21.9 Gastro-esophageal reflux disease without esophagitis; R79.89 Other specified abnormal findings of blood chemistry; R73.01 Impaired fasting glucose; E05.90 Thyrotoxicosis, unspecified without thyrotoxic crisis or storm
CPT/HCPCS: 99396

== ENCOUNTER 2023-11-02 08:00 | Outpatient (REF) | payer OTHER, SELFPAY ==
--- NOTE | ~2023-11-02 | US_ITS ---
EXAMINATION: US THYROID CLINICAL INFORMATION: Thyrotoxicosis, unspecified without thyrotoxic crisis or storm. COMPARISON: Thyroid ultrasound 07/15/2018 and 05/07/2017. TECHNIQUE: Linear transducer grayscale and color Doppler examination with attention to the region of the thyroid. FINDINGS: SIZE: Measurements of the thyroid lobes and nodules are given in sagittal, anteroposterior and transverse dimensions respectively. Right Thyroid Lobe: 5.4 x 1.5 x 1.7 cm, volume 7.3 mL. Previously 4.7 x 1.7 x 1.8 cm, volume 7.3 mL. Parenchyma: The gland echotexture is heterogeneous. Thyroid vascularity is increased. Left Thyroid Lobe: 4.7 x 1.6 x 1.6 cm, volume 6.3 mL. Previously 4.5 x 1.5 x 1.9 cm, volume 6.5 mL. Parenchyma: The gland echotexture is heterogeneous. Thyroid vascularity is increased. Isthmus: 0.5 cm in maximum AP dimension. Previously 0.3 cm. Estimated total number of nodules greater than or equal to 1 cm: 0. Inclusion Specialist nodules are described as follows: 1. Location: Right upper pole. Size: 0.6 x 0.4 x 0.6 cm, volume 0.07 mL. Previously: Not documented. Nodule characteristics: Composition: Mixed cystic and solid (1). Echogenicity: Hypoechoic (2). Shape: Not taller than wide (0). Margins: Smooth (0). Echogenic Foci: None (0). ACR TI-RADS total points: 3 ACR TI-RADS category: 3 NODES: No lymphadenopathy is seen in the tissue surrounding the thyroid gland. US/US thyroid IMPRESSION: Heterogeneous hypervascular thyroid with a single 6 mm nodule. Heterogeneous hypervascular gland with a single subcentimeter discrete nodule seen. which does not warrant follow-up. ACR TI-RADS RECOMMENDATION REFERENCE: Ultrasound-guided fine-needle aspiration, follow up ultrasound, no further followup. * TR1 (0 point) and TR2 (2 points): No FNA or followup * TR3 (3 points): FNA if more than or equal to 2.5 cm in maximum dimension, follow up ultrasound in 1, 3 and 5 years if 1.5 to 2.4 cm in maximum dimension. * TR4 (4-6 points): FNA if more than or equal to 1.5 cm in maximum dimension, follow up ultrasound in 1, 2, 3 and 5 years if 1 to 1.4 cm in maximum dimension. * TR5 (more than or equal to 7 points): FNA if more than or equal to 1 cm in maximum dimension, follow up ultrasound every year for 5 years if 0.5 to 0.9 cm in maximum dimension. * TR3, TR4 or TR5 nodules that are below the size threshold for follow up receive no followup. Electronically signed by: Kye Colon MD 12/14/2023 12:33 AM [facility]USSEIN
--- NOTE | ~2023-11-02 | US_ITS ---
EXAMINATION: US ABDOMEN COMPLETE CLINICAL INFORMATION: Other specified abnormal findings of blood chemistry. COMPARISON: CT abdomen and pelvis 01/20/2020. TECHNIQUE: Real-time imaging of the abdominal viscera. FINDINGS: PANCREAS: The visualized pancreas appears unremarkable but the pancreatic tail is obscured by bowel gas. ABDOMINAL AORTA: The proximal, mid, and distal segments are normal in caliber. INFERIOR VENA CAVA: Visualized portions are normal. LIVER: The liver is enlarged measuring at least 19 cm in length. The liver contour is normal. There is diffuse increased liver parenchymal echogenicity, consistent with hepatic steatosis. No focal hepatic lesion. There is no intrahepatic biliary duct dilatation seen. GALLBLADDER: The gallbladder is physiologically distended without evidence of stones, sludge, polyps, wall thickening or pericholecystic fluid. COMMON BILE DUCT: Normal in caliber measuring 0.5 cm in diameter. RIGHT KIDNEY: No hydronephrosis or renal calculi. The kidney measures 11.4 cm in maximum dimension. A benign 1.4 cm Bosniak class I renal cyst is noted at the upper pole which requires no additional imaging or follow up. No solid renal masses are seen. LEFT KIDNEY: Multiple benign Bosniak class I parapelvic renal cysts are noted, mimicking hydronephrosis, which require no additional imaging or follow-up. Similar findings could be seen on the 01/20/2020 CT scan. No solid renal masses are seen. No hydronephrosis. No renal calculi . The kidney measures 11.5 cm in maximum dimension. SPLEEN: Normal. The spleen measures 10.8 cm in maximum dimension. FREE FLUID: None. US/US abdomen complete IMPRESSION: Enlarged fatty liver. Electronically signed by: Kye Colon MD 12/14/2023 12:33 AM EST
[2023-11-02 09:43] LABS: Estimated Average Glucose 120 mg/dL; Hemoglobin A1C 143.4119 umol/L; Hemoglobin A1c % 5.8 % (<6.0)
[2023-11-02 10:11] LABS: Alanine Aminotransferase 36 U/L (0-31); Albumin Level 3.7 g/dL (3.5-5.0); Alkaline Phosphatase 71 U/L (39-117); Aspartate Amino Transferase 22 U/L (5-31); Bilirubin Direct 0.2 mg/dL (0.0-0.5); Bilirubin Total 0.5 mg/dL (0.0-1.0); Total Protein 6.7 g/dL (6.5-8.0)
[2023-11-02 10:41] LABS: HBc Num1 0.14 S/CO (0.00-0.79); Hepatitis B Core Antibody Nonreactive (Nonreactive)
[2023-11-02 10:58] LABS: HBS Num1 2.08 mIU/mL (0-7.99); Hepatitis B Surface Antigen Negative (Negative); ~Hepatitis B Surface Antibody NONREACTIVE (Nonreactive); ~Hepatitis C Antibody Nonreactive (Nonreactive)
== END 2023-11-02 08:01 | disposition home or self-care (01) ==
LOC: HO.US 08:00
PROVIDERS: PCP Internal Medicine; Visit Provider Internal Medicine
DX: R79.89 Other specified abnormal findings of blood chemistry (principal); E05.90 Thyrotoxicosis, unspecified without thyrotoxic crisis or storm; R73.01 Impaired fasting glucose
CPT/HCPCS: 36415; 76536; 76700; 80076; 83036; 86704; 86706; 86803; 87340

== ENCOUNTER 2023-11-23 10:55 | Outpatient (AMB) | payer OTHER, SELFPAY ==
--- NOTE | 2023-11-23 11:01 | MHC.OFFWIV ---
Intake Vital Signs 11/23/23 11:02 Height 5 ft 3 in Weight 215 lb BMI 38.1 BP 122/90 H Blood Pressure Location Rt brachial Position Sitting Pulse 71 Pulse Source Pulse Oximeter Pulse Oximetry (%) 99 Oxygen Delivery Method Room Air Intake Visit Reasons: EP Stung underneath LT arm Intake Note: Patient here because she was stung on thursday and initially had a small ring around it and has spread. Patient Tobacco Use Status: Former Tobacco user Allergies lisinopril Allergy (Severe, Verified 11/23/23 11:03) Cough apple Allergy (Intermediate, Verified 11/23/23 11:03) welting Iodinated Contrast Media [IV CONTRAST] Allergy (Intermediate, Verified 11/23/23 11:03) hives, facial swelling and welts iodine [IODINE] Allergy (Intermediate, Verified 11/23/23 11:03) HIVES Penicillins [PENICILLINS] Allergy (Intermediate, Verified 11/23/23 11:03) HIVES amlodipine Adverse Reaction (Intermediate, Verified 11/23/23 11:03) swelling Do you need a note to return to daycare/school/sports/work: No HPI EP Stung underneath LT arm HPI Details This note is constructed using voice recognition software. While every effort has been made to ensure accuracy, map and chart mounter errors may have been included. The patient is a 53 year old female who presents to the clinic today with the sting 3 days ago with worsening redness. She reports that she had been taking Benadryl [id number], and it seemed to not be helping. She reports that the area has been tender, and the area of redness has grown twice its size since yesterday. She denies fever, chills, body aches. COUNTS INCLUDE 234 BEDS AT THE [facility] Medical History (Updated 09/21/23 @ 13:02 by Faviola Alonso MD) Joint swelling Asthma Glaucoma Hematuria Hemorrhoid GERD (gastroesophageal reflux disease) Rosacea Exercise induced bronchospasm Hyperthyroidism Chronic kidney disease Surgical History History of surgical procedure on eye proper using laser History of biopsy History of tubal ligation Hx of myringotomy History of endoscopy History of colonoscopy History of D&C History of 2 sections Family History (Updated 09/21/23 @ 12:44 by Faviola Alonso MD) Mother Myasthenia gravis Uterine cancer Renal cancer Diabetes mellitus Father Substance use disorder Mental health disorder Maternal Grandfather Heart attack Paternal Grandmother Psoriatic arthritis Maternal Grandmother Colon cancer Social History (Updated 09/21/23 @ 12:45 by Faviola Alonso MD) Household Members: Spouse and Children Housing: House Alcohol intake: current Alcohol intake frequency: holidays/special occasions only Comment: once Q 2 month 2 drinks Patient Tobacco Use Status: Former Tobacco user Tobacco use type: Cigarette Years Smoked: pack in college- 1989 e-Cigarette/Vaping Use: Never Used Second Hand Smoke Exposure: No service: No Current occupational status: employed 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 [employer] Current occupational exposures/hazards: No Cognitive needs: No Hearing needs: No Vision needs: Yes (Glasses) Review of Systems Const All systems reviewed & are unremarkable except as noted in HPI and below Physical Exam Vital Signs: Last Vital Signs Pulse 71 11/23/23 11:02 BP 122/90 H 11/23/23 11:02 Pulse Ox 99 11/23/23 11:02 Oxygen Delivery Method Room Air 11/23/23 11:02 BMI result Body Mass Index 38.1 Const General: cooperative, healthy appearing, comfortable, no acute distress and well developed Orientation/consciousness: patient oriented x3 Limitations: no limitations Resp Effort & Inspection: normal respiratory effort and able to speak in complete sentences Skin Other: Large area of induration to left upper arm posteriorly surrounding sting site, with erythema, warmth. Neuro General: patient oriented x3 Assessment & Plan Assessment & Plan (1) Cellulitis: Code(s): L03.90 - Cellulitis, unspecified Qualifiers: Site of cellulitis: extremity Site of cellulitis of extremity: upper extremity Laterality: left Qualified Code(s): L03.114 - Cellulitis of left upper limb Plan: Antibiotics sent to requested pharmacy. Advised [id number] antihistamine for allergic response. Advised patient to monitor for worsening or failure to resolve. Plan See above for full details and plan. Medications: New doxycycline hyclate 100 mg PO BID 7 days 14 tabs 0RF Coding Level of Care Code Est Pt Level 3 (84483) Diagnoses Cellulitis of left upper extremity L03.114 Site of cellulitis: extremity Site of cellulitis of extremity: upper extremity Laterality: left
[2023-11-23 11:02] VITALS: BP 122/90; PULSE 71; O2SAT 99; BMI 38.1
== END 2023-11-23 11:13 | disposition home or self-care (01) ==
PROVIDERS: PCP Internal Medicine; Visit Provider Registered Nurse
DX: L03.114 Cellulitis of left upper limb (principal)

== ENCOUNTER → 2023-11-23 10:55 | Outpatient (BNVA) | payer OTHER, SELFPAY | PROVIDERS: PCP Internal Medicine; Visit Provider Registered Nurse ==

== ENCOUNTER 2023-12-25 15:45 | Outpatient (AMB) | payer OTHER, SELFPAY ==
[2023-12-25 15:59] VITALS: BP 120/78; PULSE 72; O2SAT 97; BMI 38.1
--- NOTE | 2023-12-25 15:59 | MHC.OFFVIS ---
Vital Signs 12/25/23 15:59 Height 5 ft 3 in Weight 214 lb 15.211 oz BMI 38.1 BP 120/78 Blood Pressure Location Lt brachial Position Sitting Pulse 72 Pulse Source Pulse Oximeter Pulse Oximetry (%) 97 Oxygen Delivery Method Room Air Intake Visit Reasons: Cough White Hat Hacker Required: No Public Transit Trolley Driver: Public Transit Trolley Driver offered & declined Accompanied by: Self / Same As Patient Allergies lisinopril Allergy (Severe, Verified 12/25/23 16:02) Cough apple Allergy (Intermediate, Verified 12/25/23 16:02) welting Iodinated Contrast Media [IV CONTRAST] Allergy (Intermediate, Verified 12/25/23 16:02) hives, facial swelling and welts iodine [IODINE] Allergy (Intermediate, Verified 12/25/23 16:02) HIVES Penicillins [PENICILLINS] Allergy (Intermediate, Verified 12/25/23 16:02) HIVES amlodipine Adverse Reaction (Intermediate, Verified 12/25/23 16:02) swelling Medication List - Last Reconciled 12/25/23 by Tabatha Villafuerte LPN acetaminophen (Tylenol Extra Strength) 500 mg PO Q6H PRN albuterol sulfate 90 mcg/actuation 2 puffs inhalation Q6H PRN 30 days azelastine 1 spray intranasal BID benzonatate 200 mg PO BID PRN blood pressure monitor (Blood Pressure Kit) As directed doxycycline hyclate 100 mg PO BID 7 days fluticasone propionate 50 mcg/actuation (Flonase Allergy Relief) 1 spray intranasal BID hydrochlorothiazide 12.5 mg (1/2 x 25 mg) PO DAILY inhalational spacing device (Aerochamber MV spacer) As directed levocetirizine (Xyzal) 5 mg PO DAILY losartan 50 mg PO DAILY Symbicort 160-4.5 mcg/actuation (budesonide-formoterol) 2 puffs inhalation BID 30 days NS tramadol 50 mg PO DAILY HPI Comments Details: The patient is a 53 year woman with worsening respiratory symptoms. The patient states that she has been diagnosed with pneumonia several times once back in 2018 2019 and another time in February 2022. The patient usually gets symptoms of shortness of breath chest tightness with ?itchiness ?in her substernal area. Feels like his internal. Moderate severity. Typically worse at nighttime. She was evaluated for allergies in which she had noted to have significant allergies and at 1 point did receive allergy shots. She does have a rescue inhaler that she uses as needed. She did undergo pulmonary function studies in the past demonstrating no obstructive ventilatory defects. She understood from that study that she did not have any airway issues. We did review her chest x-rays demonstrating initially airspace disease primarily in the right hemithorax. Her blood work that she has had past demonstrates significant eosinophilia. 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 The patient does respond well to prednisone back in February of this year. 09/15/2022 the patient is here for a pulmonary follow-up visit. The patient overall is doing well. She did have the Symbicort but she does not use it regularly. The patient does not like to take too many medications. We did review the blood work. The eosinophilic levels are slightly better. May have been because she had been on prednisone. In addition to that the allergy testing was significant for significant dust mite allergies and other environmental allergens. The patient clinically is doing okay right now. Summer seems to be a good month for her. Explained to her that the Symbicort she can use as needed. She did not have her pulmonary function studies. Will have her come back in 6 months with PFTs. She is very upset about her ongoing symptoms with joint pain and swelling. Denies any rashes. 04/20/2023 the patient is here for a pulmonary follow-up visit. the patient has been doing better. Tolerating the Symbicort. Also has a rescue inhaler. She did have a respiratory illness and she managed by taking her medications. Still, she does have a cough that is lingering. Moderate severity. Intermittent. Of times productive. We did review her last chest x-ray from April 2022 demonstrating no acute disease. Her blood work demonstrating some allergies. At this point the patient is doing well will going to continue with current therapy. No additional testing warranted. The patient will follow-up in a year's time or sooner if she develops any worsening symptoms. 12/25/2023 the patient is here for a pulmonary follow-up visit. Overall she is doing okay. She had 1 bad bout of COVID back over the summer when she did take Paxlovid. She tolerated the fax over but did give adverse effects. Her breathing is now better. Although she still has coughing. She did use the Tessalon Perles while she was having coughing bouts. She also had responded well to the Symbicort. But now her insurance is no longer covering the Symbicort. Seems like she does not need a maintenance inhaler although she will benefit from Airsupra at this time. This will be a very good option for her. Therefore, I will send her the inhaler to the pharmacy and I did give her a coupon. She understands that this will be her rescue inhaler that she can use 2 puffs twice a day as needed. If however she needs additional medication then she would have to call in order for us to send her a proper maintenance inhaler. Otherwise patient will return in a year if he has develops any worsening symptoms she will call for an earlier assessment. [facility] Medical History (Updated 09/21/23 @ 13:02 by Faviola Alonso MD) Joint swelling Asthma Glaucoma Hematuria Hemorrhoid GERD (gastroesophageal reflux disease) Rosacea Exercise induced bronchospasm Hyperthyroidism Chronic kidney disease Surgical History History of surgical procedure on eye proper using laser History of biopsy History of tubal ligation Hx of myringotomy History of endoscopy History of colonoscopy History of D&C History of 2 sections Family History (Updated 09/21/23 @ 12:44 by Faviola Alonso MD) Mother Myasthenia gravis Uterine cancer Renal cancer Diabetes mellitus Father Substance use disorder Mental health disorder Maternal Grandfather Heart attack Paternal Grandmother Psoriatic arthritis Maternal Grandmother Colon cancer Social History (Updated 12/25/23 @ 16:06 by Tabatha Villafuerte LPN) Household Members: Spouse and Children Housing: House Alcohol intake: current Alcohol intake frequency: holidays/special occasions only Comment: once Q 2 month 2 drinks Patient Tobacco Use Status: Former Tobacco user Tobacco use type: Cigarette Years Smoked: pack in college- 1989 e-Cigarette/Vaping Use: Never Used Second Hand Smoke Exposure: No service: No Current occupational status: employed 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 Current occupational exposures/hazards: No Cognitive needs: No Hearing needs: No Vision needs: Yes (Glasses) Review of Systems Const Denies fever(s) Eyes Denies blurry vision and Reports dry eyes ENT Reports nasal congestion Card Denies chest pain and Denies palpitations Resp Reports cough and Reports wheezing GI Reports no additional complaints Musc Reports no additional complaints, Reports myalgias, Reports arthralgias and Reports joint swelling Skin/Breast Reports rash Neuro Reports no additional complaints Psych Reports no additional complaints Endo Denies palpitations Rey/Lymph Denies easy bleeding, Denies easy bruising and Denies lymphadenopathy Aller/Immun Reports wheezing Physical Exam Vital Signs: Last Vital Signs Pulse 72 12/25/23 15:59 BP 120/78 12/25/23 15:59 Pulse Ox 97 12/25/23 15:59 Oxygen Delivery Method Room Air 12/25/23 15:59 BMI result Body Mass Index 38.1 Const General: comfortable HEENT Head: Yes normocephalic Eyes General: appearance normal, both eyes and all related structures Neck Neck: Yes supple Chest Chest palpation & inspection: normal inspection of the chest Resp Effort & Inspection: normal respiratory effort Auscultation: clear to auscultation bilaterally and no wheezes Cardio Rhythm: regular rhythm Heart sounds: S1 normal heart sound present and S2 normal heart sound present GI Palpation (GI): Soft to palpation Skin General skin exam: no rashes or lesions noted Extrem General: Yes no clubbing, cyanosis or edema Assessment & Plan Assessment & Plan (1) Asthma: Comment: with eosinophilia Code(s): J45.909 - Unspecified asthma, uncomplicated Category: Medical Qualifiers: Asthma complication type: uncomplicated Asthma persistence: intermittent Asthma severity: mild Qualified Code(s): J45.20 - Mild intermittent asthma, uncomplicated (2) Chronic cough: Comment: 2014 pulmonary function test normal Code(s): R05.3 - Chronic cough Category: Medical (3) Joint swelling: Code(s): M25.40 - Effusion, unspecified joint Category: Medical Plan stop Symbicort, as needed start Airsupra BID as needed ISAC as needed Benzonates as needed for cough F/U 12 months Medications: New benzonatate 200 mg PO BID PRN 60 caps 6RF cough albuterol-budesonide 90-80 mcg/actuation (Airsupra) 2 inhalations inhalation BID PRN 10.7 grams 12RF shortness of breath Coding Level of Care Code Est Pt Level 4 (88397) Diagnoses Mild intermittent asthma without complication J45.20 Asthma complication type: uncomplicated Asthma persistence: intermittent Asthma severity: mild Chronic cough R05.3 Joint swelling M25.40 Time Spent (min) 16
== END 2023-12-25 16:22 | disposition home or self-care (01) ==
PROVIDERS: PCP Internal Medicine; Visit Provider Hospitalist
DX: J45.20 Mild intermittent asthma, uncomplicated (principal); R05.3 Chronic cough; M25.40 Effusion, unspecified joint
CPT/HCPCS: 99214

== ENCOUNTER 2023-12-28 15:06 | Outpatient (AMB) | payer OTHER, SELFPAY ==
[2023-12-28 15:15] VITALS: BP 114/82; PULSE 58; O2SAT 98; BMI 37.7
--- NOTE | 2023-12-28 15:15 | A.OFFPC_ITS ---
Vital Signs 12/28/23 15:15 Height 5 ft 3 in Weight 213 lb BMI 37.7 BP 114/82 Blood Pressure Location Lt brachial Position Sitting Pulse 58 Pulse Source Pulse Oximeter Pulse Oximetry (%) 98 Oxygen Delivery Method Room Air Intake Visit Reasons: LFT elevated, IGT Drawer Maker Required: No Allergies lisinopril Allergy (Severe, Verified 12/28/23 15:19) Cough apple Allergy (Intermediate, Verified 12/28/23 15:19) welting Iodinated Contrast Media [IV CONTRAST] Allergy (Intermediate, Verified 12/28/23 15:19) hives, facial swelling and welts iodine [IODINE] Allergy (Intermediate, Verified 12/28/23 15:19) HIVES Penicillins [PENICILLINS] Allergy (Intermediate, Verified 12/28/23 15:19) HIVES amlodipine Adverse Reaction (Intermediate, Verified 12/28/23 15:19) swelling Tobacco use date assessed: 04/14/23 Dental Screening Dental Screen Date: 09/21/23 HPI LFT elevated, IGT HPI Details 53-year-old obese female with asthma, hy pertension, GERD last seen by Dr. Alonso 09/2023 coming in for follow up. In review of the notes, patient was seen by [facility] pulmonology 12/27/2023 advised to stopped Symbicort and start air supra and use benzonatate as needed for cough. Patient also had abdominal ultrasound completed 12/14/2023 which showed enlarged fatty liver and thyroid ultrasound completed the same day that showed single 6 mm nodule that does not warrant foll ow up. Patient states she is feeling generally well and has no acute concerns today. [facility] Medical History (Updated 09/21/23 @ 13:02 by Faviola Alonso MD) Joint swelling Asthma Glaucoma Hematuria Hemorrhoid GERD (gastroesophageal reflux disease) Rosacea Exercise induced bronchospasm Hyperthyroidism Chronic kidney disease Surgical History History of surgical procedure on eye proper using laser History of biopsy History of tubal ligation Hx of myringotomy History of endoscopy History of colonoscopy History of D&C History of 2 sections Family History (Updated 09/21/23 @ 12:44 by Faviola Alonso MD) Mother Myasthenia gravis Uterine cancer Renal cancer Diabetes mellitus Father Substance use disorder Mental health disorder Maternal Grandfather Heart attack Paternal Grandmother Psoriatic arthritis Maternal Grandmother Colon cancer Social History (Updated 12/25/23 @ 16:06 by Tabatha Villafuerte LPN) Household Members: Spouse and Children Housing: House Alcohol intake: current Alcohol intake frequency: holidays/special occasions only Comment: once Q 2 month 2 drinks Patient Tobacco Use Status: Former Tobacco user Tobacco use type: Cigarette Years Smoked: pack in college- 1989 e-Cigarette/Vaping Use: Never Used Second Hand Smoke Exposure: No service: No Current occupational status: employed 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 How often do you have a drink containing alcohol?: Monthly or less 2. How many drinks containing alcohol do you have on a typical day when you are drinking?: 1 or 2 3. How often do you have six or more drinks on one occasion?: Never Total Score: 1 Score Reviewed/Action Taken: No JONATHAN-7 AMB Questionnaire JONATHAN-7 Date JONATHAN - 7 assessed: 09/21/23 Source: Developed by Drs. Torsten Win, Dyana Oviedo, Dick Lima and colleagues, with an educational lazaro from [employer]. Review of Systems Const Denies body aches, Denies chills and Denies fever(s) Eyes Reports no additional complaints ENT Reports no additional complaints Card Denies chest pain, Denies leg edema, Denies lightheadedness and Denies dyspnea Resp Denies dyspnea GI Reports no additional complaints Reports no additional complaints Musc Reports no additional complaints Skin/Breast Reports system reviewed and no additional complaints, except as documented Physical exam (Primary Care) Vital Signs: Last Vital Signs Pulse 58 12/28/23 15:15 BP 114/82 12/28/23 15:15 Pulse Ox 98 12/28/23 15:15 Oxygen Delivery Method Room Air 12/28/23 15:15 BMI result Body Mass Index 37.7 Tobacco/Smoking Status: Tobacco use Status Tobacco use date assessed 04/14/23 12/28/23 15:20 Patient Tobacco Use Status Former Tobacco user 12/28/23 15:20 Tobacco use type Cigarette 12/28/23 15:20 e-Cigarette/Vaping Use Never Used 12/28/23 15:20 Thrive Assessment: Date of Thrive Assessment Date Thrive assessed 04/14/23 12/28/23 15:20 Const General: cooperative, healthy appearing, comfortable and no acute distress Orientation/consciousness: patient oriented x3 HENMT Head: Yes normocephalic Ears: hearing grossly normal bilaterally General nose exam: Normal external nose present Eyes General: appearance normal, both eyes and all related structures Conjunctivae: conjunctivae normal Neck Neck: Yes full ROM and Yes no lymphadenopathy Resp Effort & Inspection: normal respiratory effort Auscultation: clear to auscultation bilaterally, no crackles, no rales, no rhonchi and no wheezes Cardio Rate: regular rate Rhythm: regular rhythm Skin General skin exam: no rashes or lesions noted Neuro General: patient oriented x3 Gait exam (Neuro): Normal gait present Extrem General: Yes normal to inspection, Yes full ROM and No edema Psych Affect: normal affect Attitude: cooperative Insight: Good insight present (Psych) Judgement: Good judgement present (Psych) Office Procedures Flu Questionnaire Does the patient have a severe egg allergy?: No Does the patient have severe life threatening allergies?: No Does the patient have a fever or illness today?: No Has the patient ever had Guillain-Kelso Syndrome?: No Has the patient ever had any past reaction to a flu shot?: No Immunizations Fluarix Triv [id number] (PF) 45 mcg (15 mcg x 3)/0.5 mL IM syringe Performing Provider: Jessica Weber PA-C [facility] Administered by: NATALEE Levin on 12/28/23 15:51 Dose Route Admin Location Dispensed Lot Number Expiration Date [facility] Personalized Living Assistant 0.5 mL IM Left Deltoid 0.5 mL [id number] 08/08/24 [id number] [facility] VIS Given Date VIS Provided VIS Publication Date 12/28/23 Single Vaccine 20 Eligibility Eligibility Date Funding Source Not [facility] Eligible 12/28/23 Private Coding Level of Care Code Est Pt Level 3 (17555) Diagnoses Impaired fasting blood sugar R73.01 LFT elevation R79.89 Hypertension I10 GERD (gastroesophageal reflux disease) K21.9 Obesity (BMI 30-39.9) E66.9 Assessment & Plan Assessment & Plan (1) Impaired fasting blood sugar: Code(s): R73.01 - Impaired fasting glucose Category: Medical Plan: Decrease the amount of carbohydrates such as pasta, bread, rice, and potatoes and limit the amount of sweets. Although fruits are generally healthy they should be eaten in moderation as they are still high in sugar. We will follow up in 3 months with repeat A1c (2) LFT elevation: Code(s): R79.89 - Other specified abnormal findings of blood chemistry Category: Medical Plan: Continue to monitor liver labs. Healthy diet and regular exercise is enc ouraged. (3) Hypertension: Code(s): I10 - Essential (primary) hypertension Category: Medical Plan: Continue on current blood pressure medication. Avoid salt intake and encourage healthy diet and regular exercise. (4) GERD (gastroesophageal reflux disease): Code(s): K21.9 - Gastro-esophageal reflux disease without esophagitis Category: Medical Plan: Avoid trigger foods such as citrus, tomato products, soda, caffeine, spicy foods and other foods that may be irritating to your stomach. Avoid laying flat 3-4 hours after eating and elevate the head of the bed 30 degrees to prevent acid from moving into the esophagus. (5) Obesity (BMI 30-39.9): Code(s): E66.9 - Obesity, unspecified Category: Medical Plan: Healthy diet and regular exercise is encouraged. Plan This note was constructed using voice recognition software. While every effort has been made to ensure accuracy and practical nursing teacher, still areas may have been included sometimes these areas may affect the content or meeting of the given symptoms. Total time spent caring for the patient today was 20 minutes. This includes time spent before the visit reviewing the chart, time spent during the visit, and time spent after the visit and documentation. Orders: Orders Influenza [id number] Immunization Today Z23 - Encounter for immunization
== END 2023-12-28 15:55 | disposition home or self-care (01) ==
PROVIDERS: PCP Internal Medicine
DX: R73.01 Impaired fasting glucose (principal); E66.9 Obesity, unspecified; Z68.37 Body mass index [BMI] 37.0-37.9, adult; I10 Essential (primary) hypertension; K21.9 Gastro-esophageal reflux disease without esophagitis

== ENCOUNTER → 2023-12-28 15:06 | Outpatient (BNVA) | payer OTHER, SELFPAY | PROVIDERS: PCP Internal Medicine | DX: R73.01 Impaired fasting glucose (principal); R79.89 Other specified abnormal findings of blood chemistry; I10 Essential (primary) hypertension; K21.9 Gastro-esophageal reflux disease without esophagitis; E66.9 Obesity, unspecified; Z68.37 Body mass index [BMI] 37.0-37.9, adult; Z23 Encounter for immunization | CPT/HCPCS: 90471; 90656 ==

== ENCOUNTER → 2024-02-01 08:29 | Outpatient (BNVA) | payer OTHER, SELFPAY | PROVIDERS: PCP Internal Medicine; Visit Provider Physician Assistant | DX: J02.0 Streptococcal pharyngitis (principal); H66.001 Acute suppurative otitis media without spontaneous rupture of ear drum, right ear | CPT/HCPCS: 87880 ==

== ENCOUNTER 2024-02-01 09:44 | Outpatient (AMB) | payer OTHER, SELFPAY ==
--- NOTE | 2024-02-01 10:11 | MHC.OFFWIV ---
Intake Vital Signs 02/01/24 10:15 Weight 213 lb BP 122/80 Blood Pressure Location Rt brachial Position Sitting Pulse 77 Pulse Source Pulse Oximeter Temp 98.4 F Temp Source Oral Pulse Oximetry (%) 98 Oxygen Delivery Method Room Air Intake Visit Reasons: EP Strep? Intake Note: Patient here for sore throat that started about 3 days ago. Patient Tobacco Use Status: Former Tobacco user Allergies lisinopril Allergy (Severe, Verified 02/01/24 10:15) Cough apple Allergy (Intermediate, Verified 02/01/24 10:15) welting Iodinated Contrast Media [IV CONTRAST] Allergy (Intermediate, Verified 02/01/24 10:15) hives, facial swelling and welts iodine [IODINE] Allergy (Intermediate, Verified 02/01/24 10:15) HIVES Penicillins [PENICILLINS] Allergy (Intermediate, Verified 02/01/24 10:15) HIVES amlodipine Adverse Reaction (Intermediate, Verified 02/01/24 10:15) swelling Do you need a note to return to daycare/school/sports/work: No HPI HPI Comments History of Present Illness Details History The patient is a 53-year-old female presenting with sore throat and ear pain. She has been experiencing symptoms for three days, initially noticing a sore throat on one side, followed by swelling, which she suspected was due to infection. Additionally, she observed pain radiating to her ear, where she has a tube, and noted crusted blood at the entrance of the ear canal. The patient reports the presence of baez discoloration in her throat, characteristic of her past streptococcal pharyngitis. She experienced a low-grade fever of 99.1?F the previous evening, which is higher than her usual baseline temperature of 97.9?F. There is no worsening of her chronic cough, which is attributed to asthma and postnasal drip. She denies experiencing shortness of breath or wheezing. Notably, the patient has a history of allergic reactions to penicillin and related antibiotics. Physical Exam General: Cooperative, healthy appearing, comfortable and no acute distress Orientation/consciousness: Patient oriented x3 Limitations: No limitations Head: Normal to inspection Ears: Hearing grossly normal bilaterally, external ear on the right side is infected, TM's normal left side, right TM has purulent effusion, tube in place, erythema in EAC Nose: Normal external nose present, Normal nares present and No nasal discharge present Face and sinus: Normal facial exam and Yes sinuses nontender Mouth: Normal oral and palatal mucosa present and moist mucous membranes Throat: Yes tonsils normal, Yes uvula midline. Posterior oropharynx erythema, exudates noted on right side Eyes: Appearance normal, both eyes and all related structures Neck: Normal visual inspection Respiratory: Normal respiratory effort, able to speak in complete sentences, Actively coughing, no respiratory distress, not tachypneic, no tripod positioning and no use of accessory muscles Skin: No rashes or lesions noted Neuro: Patient oriented x3 Extremities: Normal to inspection and Yes no clubbing, cyanosis or edema PFSH Medical History (Updated 02/01/24 @ 10:31 by Sofi Breen PA-C) Joint swelling Asthma Glaucoma Hematuria Hemorrhoid GERD (gastroesophageal reflux disease) Rosacea Exercise induced bronchospasm Hyperthyroidism Chronic kidney disease Surgical History History of surgical procedure on eye proper using laser History of biopsy History of tubal ligation Hx of myringotomy History of endoscopy History of colonoscopy History of D&C History of 2 sections Family History (Updated 09/21/23 @ 12:44 by Faviola Alonso MD) Mother Myasthenia gravis Uterine cancer Renal cancer Diabetes mellitus Father Substance use disorder Mental health disorder Maternal Grandfather Heart attack Paternal Grandmother Psoriatic arthritis Maternal Grandmother Colon cancer Social History (Updated 12/25/23 @ 16:06 by Tabatha Villafuerte LPN) Household Members: Spouse and Children Housing: House Alcohol intake: current Alcohol intake frequency: holidays/special occasions only Comment: once Q 2 month 2 drinks Patient Tobacco Use Status: Former Tobacco user Tobacco use type: Cigarette Years Smoked: pack in college- 1989 e-Cigarette/Vaping Use: Never Used Second Hand Smoke Exposure: No service: No Current occupational status: employed 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 [employer] Current occupational exposures/hazards: No Cognitive needs: No Hearing needs: No Vision needs: Yes (Glasses) Physical Exam Vital Signs: Last Vital Signs Temp 98.4 F 02/01/24 10:15 Pulse 77 02/01/24 10:15 BP 122/80 02/01/24 10:15 Pulse Ox 98 02/01/24 10:15 Oxygen Delivery Method Room Air 02/01/24 10:15 Results AMB Rapid Strep AMB Rapid Strep Negative Last Edit by CAITIE Jang on 02/01/24 10:30 Assessment & Plan Assessment & Plan (1) Otitis media: Code(s): H66.90 - Otitis media, unspecified, unspecified ear Qualifiers: Chronicity: acute Laterality: right Otitis media type: suppurative Recurrence: non-recurrent Spontaneous tympanic membrane rupture: without spontaneous rupture Qualified Code(s): H66.001 - Acute suppurative otitis media without spontaneous rupture of ear drum, right ear Plan: Plan - Prescribe azithromycin 500 mg once daily for five days for treatment of pharyngitis and external otitis and strep phayrngitis, considering the patient's penicillin allergy. - rapid strep negative however will treat based on symptoms and history as well as Centor Score of 2, 11-17% probability of strep. - Instruct the patient to apply Vaseline gently at the entrance of the ear canal to aid in healing. - Advise wearing a mask and avoiding the sharing of drinks to prevent spreading infection, especially during upcoming gatherings. - Recommend monitoring symptoms and maintaining precautions until she is asymptomatic. Patient was informed and verbally consented to the use of an ambient scribe for clinic note documentation during this visit (2) Strep pharyngitis: Code(s): J02.0 - Streptococcal pharyngitis Plan: as above Medications: New azithromycin 500 mg (2 x 250 mg) PO DAILY 10 tabs 0RF 5 days Coding Level of Care Code Est Pt Level 4 (32214) Diagnoses Non-recurrent acute suppurative otitis media of right ear without spontaneous rupture of tympanic membrane H66.001 Chronicity: acute Laterality: right Otitis media type: suppurative Recurrence: non-recurrent Spontaneous tympanic membrane rupture: without spontaneous rupture Strep pharyngitis J02.0
[2024-02-01 10:15] VITALS: BP 122/80; PULSE 77; TEMP 36.9; O2SAT 98
== END 2024-02-01 10:41 | disposition home or self-care (01) ==
PROVIDERS: PCP Internal Medicine; Visit Provider Physician Assistant
DX: H66.001 Acute suppurative otitis media without spontaneous rupture of ear drum, right ear (principal); J02.0 Streptococcal pharyngitis; Z13.9 Encounter for screening, unspecified

== ENCOUNTER 2024-09-23 08:07 | Outpatient (REF) | payer OTHER, SELFPAY ==
--- OUTSIDE RECORDS SUMMARY | 2024-09-23 08:14 | XMS_ITS | Encounter Summary ---
Author Organization [facility] Address [address] [place] [address] Phone Care Team Providers Care Sole Dyer Name Role Phone Faviola Alonso MD Primary Care Provider [phone] Encounter Details Date Type Department Care Team (Late st Contact Info) Description 07/10/2021 Documentation Only [facility] [address] [place] [address] [place] [address] [place] [phone] Social History Tobacco Use Types Packs/Day Years Used Date Smoking Tobacco: Never Alcohol Use Standard Drinks/Week Comments Yes 0 (1 standard drink = 0.6 oz pure alcohol) Alcoholic Drinks/day: Occasional social drink Comments Unknown Sex and Gender Information Value Date Recorded Sex Assigned at Not on file Legal Sex Female 5:18 PM EST Gender Identity Not on file Sexual Orientation Not on file documented as of this encounter Plan of Treatment Upcoming Encounters Date Type Department Care Team (Late st Contact Info) Description 01/23/2025 3:00 PM EST Office Visit [facility] [address] [place] [phone] Ermias Sharp MD [address] [place] [phone] documented as of this encounter Visit Diagnoses Not on filedocumented in this encounter Care Teams Sole Dyer Relationship Specialty Start Date End Date Faviola Alonso MD [address] [place], [place] PCP - General 12/14/18 documented as of this encounter
[2024-09-23 08:29] LABS: MANUAL DIFF FLAG NO
[2024-09-23 09:05] LABS: Hematocrit 41.4 % (37.0-47.0); Hemoglobin 13.8 g/dl (12.0-16.0); Imm Gran Abs Auto 0.05 X10*3/uL (0.00-0.03); Imm Gran Pct Auto 0.7 % (0.0-0.4); Lymphocytes Absolute Auto 2.7 X10*3/uL (1.2-4.9); Mean Corpuscular HGB Conc 33.3 g/dl (31.0-35.0); Mean Corpuscular Hemoglobin 29.7 pg (27.0-33.0); Mean Corpuscular Volume 89.0 fL (80.0-98.0); NRBC Abs Auto 0.000 X10*3/uL (0.0-0.012); NRBC Pct Auto 0.0 /100WBC (0.0-0.2); Platelet Count 211 X10*3/uL (160-400); Red Blood Count 4.65 X10*6/uL (4.20-5.50); White Blood Count 7.2 X10*3/uL (4.8-10.8)
[2024-09-23 09:07] LABS: Appearance Urine Clear; Glucose Urine UA Negative (Negative); PH 5.5 (5.0-9.0); Specific Gravity - Urine 1.020 (1.005-1.025); UMIC TRIGGER UACC YES
[2024-09-23 09:10] LABS: UACC Culture Trigger YES
[2024-09-23 09:12] LABS: Hemoglobin A1C 150.0966 umol/L; Total Hemoglobin (HGBA1C) 3615.5704 umol/L
[2024-09-23 09:43] LABS: Alanine Aminotransferase 57 U/L (0-31); Albumin Level 3.9 g/dL (3.5-5.0); Alkaline Phosphatase 82 U/L (39-117); Anion Gap 11 (12-20); Aspartate Amino Transferase 35 U/L (5-31); Blood Urea Nitrogen 20 mg/dL (9-16); Calcium 8.8 mg/dL (8.4-10.2); Carbon Dioxide 29 mmol/L (22-29); Chloride 105 mmol/L (96-108); Cholesterol 150 mg/dL (<200); Estimated Glomerular Filt Rate 55; HDL Cholesterol 34 mg/dL (>40); Potassium 3.7 mmol/L (3.3-5.1); Sodium 141 mmol/L (135-145); Total Protein 6.7 g/dL (6.5-8.0); Triglycerides 103 mg/dL (<150)
[2024-09-23 09:57] LABS: Free T4 (Free Thyroxine) 1.08 ng/dL (0.71-1.85); Thyroid Stimulating Hormone 2.74 uIU/mL (0.32-4.0)
[2024-09-23 10:11] LABS: Folate 14.8 ng/mL (> or = 4.0); Vitamin B12 1200 pg/mL (200-900)
== END 2024-09-23 08:08 | disposition home or self-care (01) ==
LOC: HO.LAB 08:07
PROVIDERS: PCP Internal Medicine; Visit Provider Internal Medicine
DX: R73.01 Impaired fasting glucose (principal); E78.00 Pure hypercholesterolemia, unspecified
CPT/HCPCS: 36415; 80053; 80061; 81001; 82306; 82607; 82746; 83036; 84439; 84443; 85025; 85652; 86140; 87086; 87088; 87186

== ENCOUNTER 2024-09-27 16:10 | Outpatient (AMB) | payer OTHER, SELFPAY ==
--- NOTE | 2024-09-27 16:18 | A.OFFPC_ITS ---
Vital Signs 09/27/24 16:19 Height 5 ft 3 in Weight 212 lb BMI 37.6 BP 138/72 Blood Pressure Location Lt brachial Position Sitting Pulse 67 Pulse Source Pulse Oximeter Temp 97.3 F Temp Source Temporal Artery Scan Pulse Oximetry (%) 98 Oxygen Delivery Method Room Air Intake Visit Reasons: Annual Exam Intake Note: Patient is here today for a physical. Channeler Required: No Billet Grinder: Not Required per policy Accompanied by: Self / Same As Patient Allergies lisinopril Allergy (Severe, Verified 09/27/24 16:19) Cough apple Allergy (Intermediate, Verified 09/27/24 16:19) welting Iodinated Contrast Media (IV CONTRAST) Allergy (Intermediate, Verified 09/27/24 16:19) hives, facial swelling and welts iodine (IODINE) Allergy (Intermediate, Verified 09/27/24 16:19) HIVES Penicillins (PENICILLINS) Allergy (Intermediate, Verified 09/27/24 16:19) HIVES amlodipine Adverse Reaction (Intermediate, Verified 09/27/24 16:19) swelling Medication List - Last Reconciled 09/27/24 by Faviola Alonso MD acetaminophen (Tylenol Extra Strength) 500 mg PO Q6H PRN albuterol-budesonide 90-80 mcg/actuation (Airsupra) 2 inhalations inhalation BID PRN azelastine 1 spray intranasal BID blood pressure monitor (Blood Pressure Kit) As directed fluticasone propionate 50 mcg/actuation (Flonase Allergy Relief) 1 spray intranasal BID hydrochlorothiazide 12.5 mg PO BID inhalational spacing device (Aerochamber MV spacer) As directed levocetirizine (Xyzal) 5 mg PO DAILY losartan 100 mg PO DAILY tramadol 50 mg PO DAILY Tobacco use date assessed: 09/27/24 Dental Screening Dental Screen Date: 09/27/24 Did you have a dental visit in the last 12 months?: Yes Did you have a dental problem in the last 6 months where you did not have access to dental care?: No Was dental information given to patient?: Patient has dentist HPI Annual Exam HPI Details post nasal, PFSH Medical History (Updated 09/27/24 @ 16:53 by Faviola Alonso MD) Hyperthyroidism Strep pharyngitis Upper respiratory tract infection LFT elevation Joint swelling Asthma Glaucoma Hematuria Hemorrhoid GERD (gastroesophageal reflux disease) Rosacea Exercise induced bronchospasm Chronic kidney disease Surgical History History of surgical procedure on eye proper using laser History of biopsy History of tubal ligation Hx of myringotomy History of endoscopy History of colonoscopy History of D&C History of 2 sections Family History (Updated 09/27/24 @ 16:41 by Faviola Alonso MD) Mother Myasthenia gravis Uterine cancer Renal cancer Diabetes mellitus Father Substance use disorder Mental health disorder Maternal Grandfather Heart attack Paternal Grandmother Psoriatic arthritis Maternal Grandmother Colon cancer Leukemia Social History Household Members: Spouse and Children Housing: House Alcohol intake: current Alcohol intake frequency: holidays/special occasions only Comment: once Q 2 month 2 drinks Patient Tobacco Use Status: Former Tobacco user Tobacco use type: Cigarette Years Smoked: pack in college- 1989 e-Cigarette/Vaping Use: Never Used Second Hand Smoke Exposure: Yes service: No Current occupational status: employed 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 1. Little interest or pleasure in doing things: not at all 2. Feeling down, depressed, or hopeless: not at all 3. Trouble falling or staying asleep, or sleeping too much: not at all 4. Feeling tired or having little energy: several days 5. Poor appetite or overeating: not at all 6. Feeling bad about yourself - or that you are a failure or have let yourself or your family down: not at all 7. Trouble concentrating on things, such as reading the newspaper or watching television: not at all 8. Moving or speaking so slowly that other people could have noticed. Or the opposite - being so fidgety or restless that you have been moving around a lot more than usual: not at all 9. Thoughts that you would be better off or of hurting yourself in some way: not at all Total score: 1 Depression Screening Interpretation: Positive Depression Screening Done: Yes Source: Developed by Drs. Torsten Win, Dyana Oviedo, Dick Lima and colleagues, with an educational lazaro from [employer]. Thrive Questionnaire Date Thrive assessed: 09/27/24 I am a: Patient What is your living situation today?: I have a steady place to live Within the past 12 months, did the food you bought not last and you didn't have the money to get more?: Never true Within the past 12 months, did you worry whether your food would run out before you got money to buy more?: Never true Do you have trouble paying for medicines?: No Do you have trouble getting transportation to medical appointments?: No Do you have trouble paying your heating and electricity bill?: No Do you have trouble taking care of your child, family member or friend?: No Do you have trouble with day-to-day activities such as bathing, preparing meals, shopping, managing finances, etc.?: No Are you currently unemployed and looking for a job?: No Are you interested in more education?: No Please select the resources that you would like help with: None Currently or been in a relationship where the following occur: No concerns reported THRIVE Score: 0 AUDIT C Alcohol Use Questionnaire (AUDIT-C) 1. How often do you have a drink containing alcohol?: Monthly or less 2. How many drinks containing alcohol do you have on a typical day when you are drinking?: 1 or 2 3. How often do you have six or more drinks on one occasion?: Never Total Score: 1 JONATHAN-7 AMB Questionnaire JONATHAN-7 Date JONATHAN - 7 assessed: 09/27/24 Feeling nervous, anxious, or on edge: 0 = Not at all Not being able to stop or control worryin = Not at all Worrying too much about different things: 0 = Not at all Trouble relaxin = Not at all Being so restless that it is hard to sit still: 0 = Not at all Becoming easily annoyed or irritable: 0 = Not at all Feeling afraid as if something awful might happen: 0 = Not at all Total JONATHAN-7 score (0-4 normal; 5-9 mild; 10-14 moderate; 15-21 severe): 0 Source: Developed by Drs. Trosten Win, Dick Redman and colleagues, with an educational lazaro from [employer]. Review of Systems Const Denies poor appetite and Denies weakness Eyes Denies no additional complaints ENT Reports Normal hearing present, Denies dizziness, Denies nasal congestion, Denies tinnitus and Denies sore throat Card Denies chest pain, Denies syncope, Denies rapid heart rate and Denies dyspnea Resp Denies cough and Denies dyspnea GI Denies change in stool character, Reports constipation, Denies diarrhea, Denies nausea and Denies vomiting Denies urinary frequency, Denies difficulty voiding and Denies dysuria Neuro Reports Normal hearing present, Denies confusion, Denies dizziness, Denies syncope and Denies weakness Psych Denies confusion Physical exam (Primary Care) Vital Signs: Last Vital Signs Temp 97.3 F 09/27/24 16:19 Pulse 67 09/27/24 16:19 BP 138/72 09/27/24 16:19 Pulse Ox 98 09/27/24 16:19 Oxygen Delivery Method Room Air 09/27/24 16:19 BMI result Body Mass Index 37.6 Tobacco/Smoking Status: Tobacco use Status Tobacco use date assessed 09/27/24 09/27/24 16:24 Patient Tobacco Use Status Former Tobacco user 09/27/24 16:24 Tobacco use type Cigarette 09/27/24 16:24 e-Cigarette/Vaping Use Never Used 09/27/24 16:24 PHQ-9: PHQ-9 Score PHQ-9: Total score 1 09/27/24 16:24 Depression Screening Interpretation: Positive Thrive Assessment: Date of Thrive Assessment Date Thrive assessed 09/27/24 09/27/24 16:24 Currently or been in a relationship where the following occur: No concerns reported Const General: No confusion Orientation/consciousness: No confusion HENMT Head: Yes normocephalic Ears: external ears normal and TM's normal bilaterally Face and sinus: Yes normal facial exam Mouth: moist mucous membranes Throat: Yes tonsils normal Eyes Conjunctivae: conjunctivae normal Pupils: Equal, round and reactive pupils present and Pupil accommodation reflex normal Direct Ophthalmoscopy: normal light reflex Neck Neck: No lymphadenopathy Thyroid: Thyroid normal Chest Chest palpation & inspection: normal inspection of the chest Resp Effort & Inspection: normal respiratory effort and no audible wheezes Auscultation: clear to auscultation bilaterally, no crackles, no wheezes and lung sounds not diminished Cardio Rate: regular rate Rhythm: regular rhythm Peripheral pulses: radial pulses present and dorsalis pedis present GI Palpation (GI): no masses Auscultation: normal bowel sounds and normoactive bowel sounds Rectal Exam - Female: deferred Skin General skin exam: no rashes or lesions noted Rashes: no rashes Neuro General: No confusion Cranial nerves: Yes Equal, round and reactive pupils present and Yes Normal hearing present Cognition (Neuro): normal cognition Gait exam (Neuro): Normal gait present Motor exam (neuro): 5/5 motor strength present throughout Deep tendon reflexes (DTR's): Right brachioradialis reflex intensity grade: 2+, Left brachioradialis reflex intensity grade: 2+, Right patellar reflex intensity grade: 2+ and Left patellar reflex intensity grade: 2+ Extrem General: No edema Coding Level of Care Code Est Pt Prev Care 40-64y(45571) Diagnoses Annual physical exam Z00.00 Mild intermittent asthma without complication J45.20 Asthma severity: mild Asthma persistence: intermittent Asthma complication type: uncomplicated Persistent proteinuria R80.1 Colon cancer screening Z12. Hepatic steatosis K76.0 GERD (gastroesophageal reflux disease) K21.9 Obesity (BMI 30-39.9) E66.9 Impaired fasting blood sugar R73.01 Hypertension I10 Vaginal itching N89.8 Assessment & Plan Assessment & Plan (1) Annual physical exam: Code(s): Z00.00 - Encounter for general adult medical examination without abnormal findings Category: Medical Plan: Patient is advised to eat healthy, keep well hydrated, keep active and have adequate sleep. (2) Asthma: Comment: with eosinophilia Code(s): J45.909 - Unspecified asthma, uncomplicated Category: Medical Qualifiers: Asthma severity: mild Asthma persistence: intermittent Asthma complication type: uncomplicated Qualified Code(s): J45.20 - Mild intermittent asthma, uncomplicated Plan: Patient follows up with Pulmonary placed on air supra (3) Persistent proteinuria: Code(s): R80.1 - Persistent proteinuria, unspecified Category: Medical Plan: Patient has seen Nephrology and will continue to monitor. Placed on losartan hydrochlorothiazide increased losartan to 100 mg once a day (4) Colon cancer screening: Code(s): Z12.11 - Encounter for screening for malignant neoplasm of colon Category: Medical Plan: Patient is reminded about colon cancer screening (5) Hepatic steatosis: Code(s): K76.0 - Fatty (change of) liver, not elsewhere classified Category: Medical Plan: Low-fat diet and exercise (6) GERD (gastroesophageal reflux disease): Code(s): K21.9 - Gastro-esophageal reflux disease without esophagitis Category: Medical Plan: Avoid the foods that causes that usually spicy foods, tomato products, juices, coffee, soda and foods that your sensitive to. After eating do not lie down, allow 3-4 hours before in lie down. And keep the head of bed above 30 degrees to avoid the acid from going up. (7) Obesity (BMI 30-39.9): Code(s): E66.9 - Obesity, unspecified Category: Medical Plan: Diet and exercise (8) Impaired fasting blood sugar: Code(s): R73.01 - Impaired fasting glucose Category: Medical Plan: Decrease the amount of carbohydrate intake, pasta, bread, rice and potatoes are all sugar and that is aside from all the sweet stuff, remember that fruits are good but they are Sweet also. (9) Hypertension: Code(s): I10 - Essential (primary) hypertension Category: Medical Plan: Continue with losartan hydrochlorothiazide (10) Vaginal itching: Code(s): N89.8 - Other specified noninflammatory disorders of vagina Category: Medical Plan History of Present Illness The patient is a 54-year-old female presenting for a physical exam and management of chronic conditions. The patient has a history of Gastroesophageal Reflux Disease (GERD) and hyper tension, both of which are managed with medication. She also has asthma, for which she was seen by pulmonary specialists and started on Airsupra. The patient has impaired glucose tolerance with a hemoglobin A1c of 5.9, indicating a slight elevation above normal. She has hepatic steatosis, confirmed by an abdominal ultrasound showing fatty liver, and elevated liver enzymes were noted in recent blood work. 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 Her treatment includes losartan, which was recently increased to 100 mg, and hydrochlorothiazide. A thyroid ultrasound in October 2023 revealed a hypervascular thyroid with a single 6 mm nodule. The patient also reports a history of sinus infections and allergies, which contribute to her respiratory symptoms. The patient has a family history of kidney cancer and endometrial cancer in her mother, colon cancer in her grandmother, and leukemia in her maternal grandmother. She rarely consumes alcohol and has a history of smoking during college but has since quit. Health Maintenance - Mammogram is due - Colonoscopy is due - Encouraged to maintain a low-fat diet and regular exercise - Advised to monitor blood pressure regularly - Recommended to get shingles vaccination Social History - Alcohol consumption: Rarely, never more than two drinks at a time - Smoking history: Smoked a pack in college, has since quit - Exercise: Engages in walking regularly - Family history: Mother with kidney and endometrial cancer, grandmother with colon cancer, maternal grandmother with leukemia Review of Systems - General: Denies fever, reports recent travel-related illness - Cardiovascular: Denies chest pain, reports occasional palpitations - Respiratory: Reports dyspnea on exertion, denies wheezing - Gastrointestinal: Reports occasional loose stools, denies constipation - Neurological: Denies dizziness, reports occasional headaches - Dermatological: Reports itching, denies rashes Physical Exam General: Cooperative, healthy appearing, comfortable, no acute distress and well developed Orientation: Patient oriented x3 Limitations: No limitations Head: Normal to inspection Ears: Hearing grossly normal bilaterally, reduction in both ears, more so on the right Nose: Normal external nose present Face and sinus: Normal facial exam, patient reports sinus infection Eyes: Appearance normal, both eyes and all related structures Neck: Normal visual inspection and Yes full ROM Respiratory: Normal respiratory effort and able to speak in complete sentences. Clear to auscultation bilaterally Cardiovascular: Regular rate and rhythm. Normal S1 and S2 GI: Normal to inspection. Soft to palpation and nontender Skin: No rashes or lesions noted Neuro: Patient oriented x3 Extremities: Normal to inspection Results - Labs: Hemoglobin A1c 5.9, elevated liver enzymes, normal blood count, normal electrolytes, creatinine 1.04 - Imaging: Abdominal ultrasound showing fatty liver, thyroid ultrasound showing hypervascular thyroid with a 6 mm nodule Plan The patient will continue with her current medication regimen, including losartan and hydrochlorothiazide, with adjustments as needed based on blood pressure readings. She is advised to maintain a low-fat diet and engage in regular exercise to manage her hepatic steatosis and impaired glucose tolerance. The patient is reminded to schedule her overdue mammogram and colonoscopy for preventative care. She is encouraged to monitor her blood pressure regularly and report any significant changes. For her asthma, the patient will continue using Airsupra as needed and follow up with pulmonary care. She is also advised to consider getting the shingles vaccination at her local pharmacy. Patient was informed and verbally consented to the use of an ambient scribe for clinic note documentation during this visit. Discussion Notes During the visit, I discussed with the patient the importance of maintaining her current medication regimen, including losartan and hydrochlorothiazide, and the need for regular monitoring of her blood pressure. We reviewed her recent lab results, noting the slight elevation in hemoglobin A1c and the presence of fatty liver, and emphasized the role of diet and exercise in managing these conditions. I advised her to schedule her overdue mammogram and colonoscopy and discussed the benefits of the shingles vaccination. Patient Instructions - Continue taking losartan and hydrochlorothiazide as prescribed. - Maintain a low-fat diet and exercise regularly. - Schedule and attend your mammogram and colonoscopy appointments. - Monitor your blood pressure regularly and report any significant changes. - Consider getting the shingles vaccination at your local pharmacy. Orders: Orders Complete Blood Count Auto Diff 6 Months R73.01 - Impaired fasting glucose Hemoglobin A1c 6 Months R73.01 - Impaired fasting glucose Comprehensive Met. Panel 6 Months R73.01 - Impaired fasting glucose Thyroid Stimulating Hormone 6 Months R73.01 - Impaired fasting glucose Lipid Panel 6 Months E78.00 - Pure hypercholesterolemia, unspecified, R73.01 - Impaired fasting glucose Referrals Gastroenterology Referral Z12.11 - Encounter for screening for malignant neoplasm of colon Medications: New estradiol 0.01%(0.1mg/gram) (Estrace) 1 g vaginal 2XW 42.5 grams 0RF N89.8 - Other specified noninflammatory disorders of vagina Changed From hydrochlorothiazide 12.5 mg (1/2 x 25 mg) PO DAILY 90 tabs 1RF I10 - Essential (primary) hypertension To hydrochlorothiazide 12.5 mg PO BID 180 tabs 2RF I10 - Essential (primary) hypertension Refilled losartan nephrology 100 mg PO DAILY 90 tabs 3RF tramadol 50 mg PO DAILY 20 tabs 0RF M17.11 - Unilateral primary osteoarthritis, right knee
[2024-09-27 16:19] VITALS: BP 138/72; PULSE 67; TEMP 36.3; O2SAT 98; BMI 37.6
--- OUTSIDE RECORDS SUMMARY | 2024-09-27 17:36 | XMS_ITS | Encounter Summary ---
Author Organization [facility], Address [address] [place] [address] Phone Care Team Providers Care Convention Services Director Name Role Phone Faviola Alonso MD Primary Care Provider [phone] Encounter Details Date Type Department Care Team (Late st Contact Info) Description 07/10/2021 Documentation Only [facility] [address] [place] [address] [place] [address] [place] [id number] Social History Tobacco Use Types Packs/Day [...] Visit [facility] [address] [place] [phone] Ermias Sharp MD [address] [place] [phone] documented as of this encounter Visit Diagnoses Not on filedocumented in this encounter Care Teams Convention Services Director Relationship Specialty Start Date End Date Faviola Alonso MD [id number] [place], [place] PCP - General 12/14/18 documented as of this encounter
== END 2024-09-27 17:14 | disposition home or self-care (01) ==
LOC: HO.HMCH 16:11
PROVIDERS: PCP Internal Medicine; Visit Provider Internal Medicine
DX: Z00.00 Encounter for general adult medical examination without abnormal findings (principal); J45.20 Mild intermittent asthma, uncomplicated; Z68.37 Body mass index [BMI] 37.0-37.9, adult; E66.9 Obesity, unspecified; R80.1 Persistent proteinuria, unspecified; Z12.11 Encounter for screening for malignant neoplasm of colon; K76.0 Fatty (change of) liver, not elsewhere classified; K21.9 Gastro-esophageal reflux disease without esophagitis; R73.01 Impaired fasting glucose; I10 Essential (primary) hypertension; N89.8 Other specified noninflammatory disorders of vagina

== ENCOUNTER 2024-12-23 15:43 | Outpatient (AMB) | payer OTHER, SELFPAY ==
[2024-12-23 15:46] VITALS: BP 110/70; PULSE 78; O2SAT 99; BMI 37.7
--- NOTE | 2024-12-23 15:46 | MHC.OFFVIS ---
Vital Signs 12/23/24 15:46 Height 5 ft 3 in Weight 213 lb BMI 37.7 BP 110/70 Blood Pressure Location Rt brachial Position Sitting Pulse 78 Pulse Source Pulse Oximeter Pulse Oximetry (%) 99 Oxygen Delivery Method Room Air Intake Visit Reasons: Cough Allergies lisinopril Allergy (Severe, Verified 12/23/24 15:52) Cough apple Allergy (Intermediate, Verified 12/23/24 15:52) welting Iodinated Contrast Media (IV CONTRAST) Allergy (Intermediate, Verified 12/23/24 15:52) hives, facial swelling and welts iodine (IODINE) Allergy (Intermediate, Verified 12/23/24 15:52) HIVES Penicillins (PENICILLINS) Allergy (Intermediate, Verified 12/23/24 15:52) HIVES amlodipine Adverse Reaction (Intermediate, Verified 12/23/24 15:52) swelling HPI Comments Details: The patient is a 54 year woman with worsening respiratory symptoms. The patient states that she has been diagnosed with pneumonia several times once back in 2018 2019 and another time in February 2022. The patient usually gets symptoms of shortness of breath chest tightness with ?itchiness ?in her substernal area. Feels like his internal. Moderate severity. Typically worse at nighttime. She was evaluated for allergies in which she had noted to have significant allergies and at 1 point did receive allergy shots. She does have a rescue inhaler that she uses as needed. She did undergo pulmonary function studies in the past demonstrating no obstructive ventilatory defects. She understood from that study that she did not have any airway issues. We did review her chest x-rays demonstrating initially airspace disease primarily in the right hemithorax. Her blood work that she has had past demonstrates significant eosinophilia. 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 The patient does respond well to prednisone back in February of this year. 09/15/2022 the patient is here for a pulmonary follow-up visit. The patient overall is doing well. She did have the Symbicort but she does not use it regularly. The patient does not like to take too many medications. We did review the blood work. The eosinophilic levels are slightly better. May have been because she had been on prednisone. In addition to that the allergy testing was significant for significant dust mite allergies and other environmental allergens. The patient clinically is doing okay right now. Summer seems to be a good month for her. Explained to her that the Symbicort she can use as needed. She did not have her pulmonary function studies. Will have her come back in 6 months with PFTs. She is very upset about her ongoing symptoms with joint pain and swelling. Denies any rashes. 04/20/2023 the patient is here for a pulmonary follow-up visit. the patient has been doing better. Tolerating the Symbicort. Also has a rescue inhaler. She did have a respiratory illness and she managed by taking her medications. Still, she does have a cough that is lingering. Moderate severity. Intermittent. Of times productive. We did review her last chest x-ray from April 2022 demonstrating no acute disease. Her blood work demonstrating some allergies. At this point the patient is doing well will going to continue with current therapy. No additional testing warranted. The patient will follow-up in a year's time or sooner if she develops any worsening symptoms. 12/25/2023 the patient is here for a pulmonary follow-up visit. Overall she is doing okay. She had 1 bad bout of COVID back over the summer when she did take Paxlovid. She tolerated the fax over but did give adverse effects. Her breathing is now better. Although she still has coughing. She did use the Tessalon Perles while she was having coughing bouts. She also had responded well to the Symbicort. But now her insurance is no longer covering the Symbicort. Seems like she does not need a maintenance inhaler although she will benefit from Airsupra at this time. This will be a very good option for her. Therefore, I will send her the inhaler to the pharmacy and I did give her a coupon. She understands that this will be her rescue inhaler that she can use 2 puffs twice a day as needed. If however she needs additional medication then she would have to call in order for us to send her a proper maintenance inhaler. Otherwise patient will return in a year if he has develops any worsening symptoms she will call for an earlier assessment. 12/23/2024 the patient is here for pulmonary follow-up visit. Overall the patient has been doing well. She has been using the her supra. Some of the season she uses it more than other times. But it appears to be very affecting beneficial for her. The patient otherwise is without any other complaints she does have some shortness of breath at times but minimal. We did review her last chest x-ray from 2022 demonstrating some crowding of the airways. Will go ahead and have her repeat the x-ray at some point just for a new baseline. In the meantime the patient will get a flu shot today. She will follow-up in a year's time if any issues arise she can always call for further recommendations. [facility] Medical History (Updated 09/27/24 @ 16:53 by Faviola Alonso MD) Hyperthyroidism Strep pharyngitis Upper respiratory tract infection LFT elevation Joint swelling Asthma Glaucoma Hematuria Hemorrhoid GERD (gastroesophageal reflux disease) Rosacea Exercise induced bronchospasm Chronic kidney disease Surgical History History of surgical procedure on eye proper using laser History of biopsy History of tubal ligation Hx of myringotomy History of endoscopy History of colonoscopy History of D&C History of 2 sections Family History (Updated 09/27/24 @ 16:41 by Faviola Alonso MD) Mother Myasthenia gravis Uterine cancer Renal cancer Diabetes mellitus Father Substance use disorder Mental health disorder Maternal Grandfather Heart attack Paternal Grandmother Psoriatic arthritis Maternal Grandmother Colon cancer Leukemia Social History Household Members: Spouse and Children Housing: House Alcohol intake: current Alcohol intake frequency: holidays/special occasions only Comment: once Q 2 month 2 drinks Patient Tobacco Use Status: Former Tobacco user Tobacco use type: Cigarette Years Smoked: pack in college- 1989 e-Cigarette/Vaping Use: Never Used Second Hand Smoke Exposure: Yes service: No Current occupational status: employed 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 [employer] Current occupational exposures/hazards: No Cognitive needs: No Hearing needs: No Vision needs: Yes (Glasses) Review of Systems Const Denies fever(s) Eyes Denies blurry vision and Reports dry eyes ENT Reports nasal congestion Card Denies chest pain and Denies palpitations Resp Reports cough and Reports wheezing GI Reports no additional complaints Musc Reports no additional complaints, Reports myalgias, Reports arthralgias and Reports joint swelling Skin/Breast Reports rash Neuro Reports no additional complaints Psych Reports no additional complaints Endo Denies palpitations Rey/Lymph Denies easy bleeding, Denies easy bruising and Denies lymphadenopathy Aller/Immun Reports wheezing Physical Exam Vital Signs: Last Vital Signs Pulse 78 12/23/24 15:46 BP 110/70 12/23/24 15:46 Pulse Ox 99 12/23/24 15:46 Oxygen Delivery Method Room Air 12/23/24 15:46 BMI result Body Mass Index 37.7 Const General: comfortable HEENT Head: Yes normocephalic Eyes General: appearance normal, both eyes and all related structures Neck Neck: Yes supple Chest Chest palpation & inspection: normal inspection of the chest Resp Effort & Inspection: normal respiratory effort Auscultation: clear to auscultation bilaterally and no wheezes Cardio Rhythm: regular rhythm Heart sounds: S1 normal heart sound present and S2 normal heart sound present GI Palpation (GI): Soft to palpation Skin General skin exam: no rashes or lesions noted Extrem General: Yes no clubbing, cyanosis or edema Assessment & Plan Assessment & Plan (1) Asthma: Comment: with eosinophilia Code(s): J45.909 - Unspecified asthma, uncomplicated Category: Medical Qualifiers: Asthma complication type: uncomplicated Asthma persistence: intermittent Asthma severity: mild Qualified Code(s): J45.20 - Mild intermittent asthma, uncomplicated (2) Chronic cough: Comment: 2014 pulmonary function test normal Code(s): R05.3 - Chronic cough Category: Medical Plan Airsupra BID as needed ISAC as needed Benzonates as needed for cough CXR F/U 12 months Orders: Orders XR chest 2V 12/23/24 J45.20 - Mild intermittent asthma, uncomplicated Medications: Refilled albuterol-budesonide 90-80 mcg/actuation (Airsupra) 2 inhalations inhalation BID PRN 10.7 grams 12RF shortness of breath Coding Level of Care Code Est Pt Level 4 (25336) Diagnoses Mild intermittent asthma without complication J45.20 Asthma complication type: uncomplicated Asthma persistence: intermittent Asthma severity: mild Chronic cough R05.3 Time Spent (min) 16
--- OUTSIDE RECORDS SUMMARY | 2024-12-24 00:47 | XMS_ITS | Data Portability ---
Author Organization [place] - [facility], Allergy Address [address] [address] Care Team Providers Care Developer Prover Upholstering Name Role Phone NOELLE HEADLEY Primary Care Provider Assessment Encounter Date Assessment Date Assessment LastModified by Organization Details LastModified Time 08/26/2023 08/26/2023 53-year-old fema le status post right M&T in December [address] Dugan presents for follow up of ETD. Exam today demonstrates right serous effusion and retraction of the tympanic membrane. Left tympanic membrane is intact with a well aerated middle ear space. Nasopharyngoscopy was benign. Audiometric testing demonstrated normal sloping to severe conductive hearing loss on the right and moderate high-frequency sensorineural hearing loss on the left. We discussed continued observation versus repeat myringotomy with tympanostomy tube placement. Patient is quite bothered by her symptoms and would like to proceed with placement of the tympanostomy tube. We also discussed that given chronic eustachian tube dysfunction, she may be a candidate for eustachian tube dilation with Dr. Maldonado. Patient will consider this. Right myringotomy with tympanostomy tube placed in office today by Dr. Dugan. Discussed right sided water precautions x 2 weeks. Rx for Ofloxacin. Follow up in 4-6 weeks for reevaluation with repeat audiometric testing. Alternatives to tubes, including continued observation discussed. Patient was informed that tubes last between 6-18 months and can be an effective method of allowing fluid to drain from the middle ear. Most tubes will fall out on their own, some will need to be removed in the OR. A very small percentage of patients will require tympanoplasty for nonhealing TM after tubes fall out/are removed. There are other risks including anesthesia but these occur exceptionally rarely. jean Not available 08/26/2023 15:33:43 09/28/2023 09/28/2023 53-year-old hai pino with history of chronic right-sided ETD status post M&T in 2020 and more recently in office 08/26/[address] Dugan presents for follow-up of eustachian tube dysfunction. Right T tube is patent and in good position. Left TM is intact. No evidence of infection on exam today. Audiometric testing demonstrated normal sloping to moderate HF SNHL on the right essentially stable. Prior audiogram noted moderate HF SNHL on the left. Conductive hearing loss on the right has resolved. We will continue to observe and plan for follow up in 6 months. jean Not available 09/28/2023 09:45:10 04/04/2024 04/04/2024 53-year-old hai pino with history of chronic right-sided ETD status post M&T in 2020 and more recently in office 08/26/[address] Dugan presents for follow-up of eustachian tube dysfunction. Right T tube is patent and in good position. Left TM is intact. No evidence of infection. Will hold off on audiometric testing today as patient subjectively denies any changes in her hearing. We will continue to observe and plan for follow up in 6 months, or sooner with concerns. jean Not available 04/04/2024 09:42:44 10/24/2024 10/24/2024 54-year-old hai pino with history of chronic right-sided ETD status post M&T in 2020 and more recently in office 08/26/[address] Dugan presents for follow-up of eustachian tube dysfunction and difficulty swallowing when laying down. Right T tube is patent and in good position. Left TM is intact. Anterior rhinoscopy with mild mucoid rhinorrhea bilaterally. FOL was offered today, but patient declined. She will continue allergy management with antihistamines, Flonase, and Azelastine. We will continue to observe and plan for follow up in 6 months, or sooner with concerns. jean Not available 10/24/2024 09:24:16 Plan of Treatment Reminders Order Date Submit Date Provider Last Modified By Organization Details Last Modified Time Details Appointments Establish ed 15 2025 10:15A M SOPHIA ROBLERO Not available Not available Not available Lab None recorded. Referral None recorded. Procedures None recorded. Surgeries None recorded. Imaging None recorded. Medication Orders ofloxacin 0.3 % ear drops 2023 024 wild 32 [id number], [address] [facility], [place], [address], 10/24/2024 08:58:15 Patient TargetsNo targets recorded. Patient InstructionsNo instructions recorded. Reason for Referral None Reported. Results Created Date Observation Date Name Description Value Unit Range Abnormal Flag Note LastModifiedBy Organization Detail LastModifiedTime 08/27/19 24 audio gram No observ ation record ed. [email or web address] Not Available 08/09 14:05:22 09/29/19 24 audio gram No observ ation record ed. [email or web address] Not Available 09/10 08:43:07 09/29/19 24 03/29/2018 imagi ng/di agnos tic resul t No observ ation record ed. [email or web address] Not Available 11:10:11 09/29/19 24 08/19/2021 imagi ng/di agnos tic resul t No observ ation record ed. [email or web address] Not Available 11:10:12 09/29/19 24 12/26/2020 imagi ng/di agnos tic resul t No observ ation record ed. [email or web address] Not Available 11:10:17 Result Notes None recorded. Problems Name Problem SNOMED Code Status Onset Date Resolution Date Notes Provider Name and Address Organization Details Recorded Time Conducti ve hearing loss of right ear 6770429002 Active 2017 Conducti ve hearing loss, unilater al, right ear with restrict ed hearing on the contrala teral side; Note: Date Diagnose d: 8 11:29 AM (H90.A11 ) Not Available [facility] 4 02:32:52 Acute serous otitis media of right ear 75302362544 72099 Active 2017 Acute serous otitis media, right ear; Note: Date Diagnose d: 8 12:09 PM (H65.01) Not Available [facility] 4 02:32:59 Disorder of right Eustachi an tube 65164493237 89642 Active 2017 Other specifie d disorder s of Eustachi an tube, right ear; Note: Date Diagnose d: 10/15/2017 4:38 PM (H69.81) Not Available [facility] 4 02:32:50 Atypical facial pain 71659303 Active 2017 Atypical facial pain; Note: Changed from R51 to G50.1 (06/29/19 22 2:18 PM) , Date Diagnose d: 02/05/20 18 12:19 PM (R51) Not Available [facility] 4 02:32:58 Sensorin eural hearing loss of bilatera l ears 534687038 Active 2017 Sensorin eural hearing loss, bilatera l; Note: Date Diagnose d: 02/05/20 18 12:00 PM (H90.3) Not Available [facility] 4 02:32:52 Gastroes ophageal reflux disease without esophagi tis 283434427 Active 2018 Gastro-e sophagea l reflux disease without esophagi tis; Note: Date Diagnose d: 9 10:40 AM (K21.9) Not Available [facility] 4 02:32:50 Chronic serous otitis media of right ear 532616324 Active 2020 Chronic serous otitis media, right ear; Note: Date Diagnose d: 12/27/19 21 11:16 AM (H65.21) Not Available [facility] 4 02:32:52 Posterio r rhinorrh ea 32054296 Active 2021 Postnasa l drip; Note: Date Diagnose d: 2 1:50 PM (R09.82) Not Available [facility] 4 02:32:51 Allergic rhinitis 98839304 Active 2021 Other allergic rhinitis ; Note: Date Diagnose d: 2 4:43 PM (J30.89) Not Available [facility] 4 02:32:49 Otorrhea of right ear 24858338693 18413 Completed 202109/11/2023 Otorrhea , right ear; Note: Date Diagnose d: 11/26/19 22 1:40 PM (H92.11) Not Available [facility] 4 02:32:53 Simple goiter 112314341 Active 2022 Other specifie d nontoxic goiter; Note: Date Diagnose d: 02/17/2022 10:12 AM (E04.8) Not Available [facility] 4 02:32:57 Conducti ve hearing loss 99777030 Active 2023 Wen [place], [place] - [facility] 4 15:06:38 Conducti ve hearing loss 46023323 Active 2023 Wen [place], [place] - [facility] 4 15:07:12 Chronic mycotic otitis externa 920900553 Active 2023 Ghassan richmond, [place] - [facility] 4 10:18:30 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 Procedures Surgical History Date Name Laterality Status Provider Name and Address Organization Details Recorded Time 024 Air & Speech Audio with Tymps - 90391, 97086 & 84176 completed [facility]O PAPPAS [address] [facility] [place], [address], [facility] - [facility] 09/28/2023 09:18:45 024 Comp Audio with Tymps - 37144 & [address] - [facility] 08/26/2023 15:06:17 024 Myringotomy w/Placement of Tube right completed AZIZA CHANDRA PA-C [address] [facility] [address], [place], [address], [facility] - [facility] 08/26/2023 16:22:17 024 Fiberoptic Nasopharyngoscopy completed AZIZA CHANDRA PA-C [address] [facility],[place] [address], [place], [address], [facility] - [facility] 08/26/2023 14:53:49 section completed Coretta Lackey CT - [facility] 10/24/2024 08:59:29 Imaging Results None recorded. Procedure Notes None recorded. Medical Equipment None Reported. Allergies Allergen ID Allergen Name Allergen Category Reaction Reaction Severity Criticality Documentation Date Start Date Code Code System Note Provider Name and Address Organization Details Recorded Time 40934 iodine medicatio n other Not available Not available 06/23/2023 5933 RxNorm React ion: unkno wn, unspe cifie d;; Not Available [facility] 4 00:59:19 23282 amoxicill in medicatio n other Not available Not available 06/23/2023 723 RxNorm React ion: unkno wn, unspe cifie d;; Not Available [facility] 4 00:59:22 48477 Product containin g penicilli n (product) medicatio n other Not available Not available 06/23/2023 64538 8001 SNOMED React ion: unkno wn, unspe cifie d;; Not Available [facility] 4 00:59:23 Medications Name Sig Start Date Stop Date Status Note LastModified by Organization Details LastModified Time losartan 50 mg tablet TAKE 1 TABLET (50 MG TOTAL) BY MOUTH IN THE MORNING AND IN THE EVENING 10/24 completed Not Available Not Available Not Available azithromy matthew 250 mg tablet TAKE 2 TABLETS BY MOUTH EVERY DAY FOR 5 DAYS 10/24 completed Not Available Not Available Not Available benzonata te 200 mg capsule TAKE 1 CAPSULE BY MOUTH 2 TIMES A DAY NEEDED FOR COUGH 10/24 completed Not Available Not Available Not Available Claritin 10 mg tablet 1 tablet by mouth 10/24 completed Medicati on ID: [id number] D uration Value: 90 Brand Name: Claritin Send Method: E-Prescr ibed Sub s Allowed: subs OK [facility] : Claritin Not Available Not Available Not Available doxycycli ne monohydra te 100 mg tablet 100 MG ORALLY 2 TIMES A DAY FOR 14 DAYS 10/24 completed Not Available Not Available Not Available tramadol 50 mg tablet TAKE 1 TABLET BY MOUTH EVERY DAY active Not Available Not Available No t Available ofloxacin 0.3 % ear drops INSTILL 5 DROPS INTO RIGHT EAR TWICE A DAY X 5 DAYS 10/24 completed Not Available Not Available Not Available clotrimaz ole-betam ethasone 1 %-0.05 % topical cream APPLY TO THE SKIN OF THE AFFECTED EXTERNAL EAR CANAL WITH FINGERTI P 3 TIMES PER DAY FOR 2 WEEKS 10/24 completed Not Available Not Available Not Available clotrimaz ole 1 % topical solution APPLY 4 DROPS TO THE AFFECTED EAR 3 TIMES A DAY FOR 2 WEEKS 10/24 completed Not Available Not Available Not Available omeprazol e 20 mg capsule,d elayed release 1 capsule by mouth 10/24 completed Medicati on ID: [id number] D uration Value: 30 Prescri bed By Name: Lorena reardon MD Brand Name: omeprazo le Send Method: E-Prescr ibed Sub s Allowed: subs OK [facility] eric[facility] : omeprazo le Not Available Not Available Not Available hydrochlo rothiazid e 25 mg tablet TAKE 1/2 TAB BY MOUTH DAILY 10/24 completed Not Available Not Available Not Available azelastin e 137 mcg (0.1 %) nasal spray 1 spray into both nostrils twice a day 10/24 completed Medicati on ID: [id number] D uration Value: 30 Prescri bed By Name: NATASHA Richardson nd Name: blancamichele vangie Send Method: E-Prescr ibed Sub s Allowed: subs OK Speci al Instruct ion: 1 spray into each nostril BID Medi cationGe nericNam e: azelasti ne Not Available Not Available Not Available estradiol 0.01% (0.1 mg/gram) vaginal cream PLACE 1 GRAM VAGINALL Y TWICE WEEKLY active Not Available Not Available No t Available losartan 100 mg tablet TAKE 1 TABLET BY MOUTH EVERY DAY active Not Available Not Available No t Available doxycycli ne hyclate 100 mg tablet TAKE 1 TABLET BY MOUTH TWICE A DAY FOR 7 DAYS 10/24 completed Not Available Not Available Not Available Excedrin Extra Strength 250 mg-250 mg-65 mg tablet 10/24 completed Medicati on ID: [id number] B rand Name: Excedrin Extra Strength Send Method: E-Prescr ibed Sub s Allowed: subs OK Medic ationGen ericName : Excedrin Extra Strength Not Available Not Available Not Available TobraDex 0.3 %-0.1 % eye drops,alejandro pension 12/23 completed Medicati on ID: [id number] D uration Value: 14 Prescri bed By Name: NATASHA Monk nd Name: TobraDex Send Method: E-Prescr ibed Sub s Allowed: subs OK Speci al Instruct ion: Instill 4 drops in the right ear twice a day for 14 days Med icationG enericNa me: TobraDex Not Available Not Available Not Available hydrochlo rothiazid e 12.5 mg tablet TAKE 1 TABLET BY MOUTH TWICE A DAY active Not Available Not Available No t Available Flonase Allergy Relief 50 mcg/actua tion nasal spray,alejandro pension 2 spray into both nostrils 10/24 completed Medicati on ID: [id number] D uration Value: 30 Brand Name: Flonase Allergy Relief S end Method: E-Prescr ibed Sub s Allowed: subs OK Medic ationGen ericName : Flonase Allergy Relief Not Available Not Available Not Available Paxlovid 300 mg (150 mg x 2)-100 mg tablets in a dose pack TAKE 2 TABLETS (NIRMATR JEY) AND TAKE 1 TABLET (RITONAV IR) BY MOUTH TWICE A DAY FOR 5 DAYS 10/24 completed Not Available Not Available Not Available Airsupra 90 mcg-80 mcg/actua tion HFA aerosol inhaler TAKE 2 PUFFS BY MOUTH 2 TIMES A DAY NEEDED FOR SHORTNES S OF BREATH active Not Available Not Available No t Available Vitals Date Recorded Body height Body mass index (BMI) Body weight Provider Name and Address Organization Details Last Updated DateTime 08/26/2023 160.02 cm 37.2 kg/m2 97593.4 g Brenda Dutta [facility] 08/26/2023 14:26:04 Date Recorded Body height Body mass index (BMI) Body weight Provider Name and Address Organization Details Last Updated DateTime 09/28/2023 160.02 cm 37.2 kg/m2 41546.4 g [facility] 09/28/2023 09:02:27 Social History None recorded. Functional Status None recorded. Mental Status None recorded. Family History Nothing Reported. Medical History Condition Response Thyroid Problems Y Hypertension Y Kidney Disease Y Gynecological HistoryNo gynecological history recorded. Obstetrics History GPAL:G 0 P 0 0 0 0 Past Encounters Encounter ID Performer Location Encounter Start Date Encounter Closed Date Diagnosis/Indication Diagnosis SNOMED-CT Code Diagnosis ICD10 Code Diagnosis IMO Codes Diagnosis Note [id number] LORENA DUGAN MD [facility] [address] [address] 08/26/2023 14:06:46 08/26/2023 16:04:32 Allergic rhinitis 78509331 J30.89 Chronic se adeel otitis media of right ear 197375869 H65.21 Disorder o f right Eustachian tube 1481499205 792854 H69.81 Conductive hearing loss 13969811 H90.A11 Audiologic al evaluation results: Right ear: Normal sloping to severe conductive hearing loss with excellent word recognitio n. Left ear: Normal sloping to a moderate sensorineu ral hearing loss with excellent word recognitio n. Tympanomet ry: Right Ear:Type B Left Ear:Type A [id number] AZIZA CHANDRA PA-C [facility] [address] [place] [address] 09/28/2023 08:54:27 09/28/2023 09:46:21 Chronic serous otitis media of right ear 402726517 H65.21 Disorder o f right Eustachian tube 1592994673 217589 H69.81 Sensorineu ral hearing loss of bilateral ears 694203240 H90.3 Audiologic al evaluation results: Right ear: Normal sloping to moderate sensorineu ral hearing loss with excellent word recognitio n. Left ear:DNT. Mild to moderate SNHL when last tested on 08/26/2023. Tympanomet ry: Right Ear:Type B with large volume (tube) Left Ear:DNT [id number] AZIZA CHANDRA PA-C [facility] [address] [address] 04/04/2024 09:02:19 04/04/2024 16:50:18 Disorder of right Eustachian tube 0555499537 376787 H69.81 Allergic rhinitis 753052 04 J30.89 [id number] AZIZA CHANDRA PA-C [facility] [address] [address] 10/24/2024 08:51:21 10/24/2024 09:18:19 Disorder of right Eustachian tube 1000197886 685624 H69.81 Allergic rhinitis 584828 04 J30.89 Dysphagia 51332767 R13.1 9 612206 Health Concerns Section Related Observation LastModified by Organization Detai ls LastModified Time None Recorded Concern Status LastModified by Organization Details LastModified Time None Recorded Advance Directives Directive None Recorded Payers Insurance Date Sequence Insurance Name Policy Number Policy Walter Covered Member ID Walter Member ID Guarantor Name 10/24/2024 1 [facility] [id number] 1 Mitesh Urena [id number] Mitesh Urena Notes Date Note Type Note Provider Name and Address Organization Details Recorded Time 08/26/2023 text/html ROS as noted in the HPI 53-year-old female status post right M&T in December [address] Dugan presents for follow up of ETD. Reports tube in the right ear extruded in April and since then has had persistent otalgia, pressure, and hearing loss. Denies otorrhea. History of allergic rhinitis; currently taking Flonase, Azelastine, and Claritin with good symptomatic control. Previously treated with SCIT x [address] Barlow but discontinued it as she was unable to reach maintenence dose by a year. LORENA DUGAN MD 100 [facility],[address], [address], [facility] - [facility] 08/27/2023 09:52:28 09/28/2023 text/html ROS as noted in the [facility] 53-year-old female with history of chronic right-sided ETD status post M&T in 2020 and more recently in office 08/26/[address] Dugan presents for follow-up of eustachian tube dysfunction. Hearing is improved. Denies otalgia and otorrhea. Notes itching of the right ear. LORENA DUGAN MD 100 [facility],[address], [address], [facility] 09/29/2023 10:05:18 04/04/2024 text/html ROS as noted in the [facility] 53-year-old female with history of chronic right-sided ETD status post M&T in 2020 and more recently in office 08/26/[address] Dugan presents for follow-up of eustachian tube dysfunction. Reports intermittent crackling in the ears and foggy sensation with disequilibrium. Had one ear infection since last visit. Denies changes in her hearing, vertigo, otalgia, and otorrhea. History of allergic rhinitis and uses Flonase, Azelastine, and antihistamines. Previously followed by Dr. Barlow for SCIT but was unable to reach maintenance and discontinued immunotherapy. GURPREET LE MD [address] [facility],[place] [address], [place], [address], [facility] 04/04/2024 16:55:36 10/24/2024 text/html ROS as noted in the [facility] 54-year-old female with history of chronic right-sided ETD status post M&T in 2020 and more recently in office 08/26/[address] Eppsteiner presents for follow-up of eustachian tube dysfunction. Denies otalgia, otorrhea, or changes in her hearing. Also notes having intermittent episodes of trouble swallowing when laying down. It resolves when sitting up. History of GERD, but denies any acid reflux symptoms. History of allergic rhinitis and uses Flonase, Azelastine, and antihistamines as needed. Previously followed by Dr. Barlow for SCIT but was unable to reach maintenance and discontinued immunotherapy. Denies tobacco use. Is able to eat and drink without difficulty. MORIAH POTTS MD [address] [place] [address], [address], [facility] - [facility] 10/24/2024 10:58:21 OBGyn Episode No OBEpisode recorded.
--- OUTSIDE RECORDS SUMMARY | 2024-12-24 00:47 | XMS_ITS | Continuity of Care Document ---
Author Organization [place] - [facility], [facility] Address [address] [place] [address] Care Team Providers Care Make Ready Worker Name Role Phone NOELLE HEADLEY Primary Care Provider [phone] Assessment Encounter Date Assessment Date Assessment LastModified by Organization Details LastModified Time 10/24/2024 10/24/2024 54-year-old female with history of chronic right-sided [...] declined. She will continue allergy management with antihistamines , Flonase, and Azelastine. We will continue to observe and plan for follow up in 6 months, or sooner with concerns. [email or web address] Not available 10/24/2024 09:24:16 Plan of Treatment Reminders Order Date Submit Date Provider Last Modified By Organization Details Last Modified Time Details Appointments Establish ed 15 2025 10:15A M SOPHIA ROBLERO Not available Not available Not available Lab None recorded. Referral None recorded. Procedures None recorded. Surgeries None recorded. Imaging None recorded. Medication Orders None recorded. Patient TargetsNo targets recorded. Patient InstructionsNo instructions recorded. Reason for Referral None Reported. Problems Name Problem SNOMED Code Status Onset Date Resolution Date Notes Provider Name and Address Organization Details Recorded Time Conducti ve hearing loss of right ear 7554958872 Active 2017 Conducti ve hearing loss, unilater al, right ear with restrict ed hearing on the contrala teral side; Note: Date Diagnose d: 8 11:29 AM (H90.A11 ) Not Available [facility] 4 02:32:52 Acute serous otitis media of right ear [id number] 10088 Active 2017 Acute serous otitis media, right ear; Note: Date Diagnose d: 8 12:09 PM (H65.01) Not Available [facility] 4 02:32:59 Disorder of right Eustachi an tube 12995764919 14546 Active 2017 Other specifie d disorder s of Eustachi an tube, right ear; Note: Date Diagnose d: 10/15/2017 4:38 PM (H69.81) Not Available [facility] 4 02:32:50 Atypical facial pain 74961891 Active 2017 Atypical facial pain; Note: Changed from R51 to G50.1 (06/29/19 22 2:18 PM) , Date Diagnose d: 02/05/20 18 12:19 PM (R51) Not Available [facility] 4 02:32:58 Sensorin eural hearing loss of bilatera l ears 640453590 Active 2017 Sensorin eural hearing loss, bilatera l; Note: Date Diagnose d: 02/05/20 18 12:00 PM (H90.3) Not Available [facility] 4 02:32:52 Gastroes ophageal reflux disease without esophagi tis 866184424 Active 2018 Gastro-e sophagea l reflux disease without esophagi tis; Note: Date Diagnose d: 9 10:40 AM (K21.9) Not Available [facility] 4 02:32:50 Chronic serous otitis media of right ear 692366423 Active 2020 Chronic serous otitis media, right ear; Note: Date Diagnose d: 12/27/19 21 11:16 AM (H65.21) Not Available [facility] 4 02:32:52 Posterio r rhinorrh ea 56235143 Active 2021 Postnasa l drip; Note: Date Diagnose d: 2 1:50 PM (R09.82) Not Available [facility] 4 02:32:51 Allergic rhinitis 66256890 Active 2021 Other allergic rhinitis ; Note: Date Diagnose d: 2 4:43 PM (J30.89) Not Available [facility] 4 02:32:49 Otorrhea of right ear [id number] 93671 Completed 202109/11/2023 Otorrhea , right ear; Note: Date Diagnose d: 11/26/19 22 1:40 PM (H92.11) Not Available [facility] 4 02:32:53 Simple goiter 064417297 Active 2022 Other specifie d nontoxic goiter; Note: Date Diagnose d: 02/17/2022 10:12 AM (E04.8) Not Available [facility] 4 02:32:57 Conducti ve hearing loss 40041321 Active 2023 Wen [place]mond, [place] - [facility] 4 15:06:38 Conducti ve hearing loss 67367301 Active 2023 Wen richmond, [place] - [facility] 4 15:07:12 Chronic mycotic otitis externa 872857568 Active 2023 Ghassan Osullivan null, [place] - [facility] 4 10:18:30 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 Procedures Surgical History Date Name Laterality Status Provider Name and Address Organization Details Recorded Time Air & Speech Audio with Tymps - 94886, 43175 & 47672 completed ROLANDO PAPPAS [address] [facility],[address], [address], [facility] - [facility] 09/28/2023 09:18:45 024 Comp Audio with Tymps - 32135 & 55733 completed Wen Morales [place] - [facility] 08/26/2023 15:06:17 024 Myringotomy w/Placement of Tube right completed AZIZA CHANDRA PA-C [address] [facility],[address], [address], [facility] - [facility] 08/26/2023 16:22:17 024 Fiberoptic Nasopharyngoscopy completed AZIZA CHANDRA PA-C [address] [place] [address],[address], [address], [facility] - [facility] 08/26/2023 14:53:49 section completed Coretta Lackey [place] - [facility] 10/24/2024 08:59:29 Imaging Results None recorded. Procedure Notes None recorded. Medical Equipment None Reported. Allergies Allergen ID Allergen Name Allergen Category Reaction Reaction Severity Criticality Documentation Date Start Date Code Code System Note Provider Name and Address Organization Details Recorded Time 70371 iodine medicatio n other Not available Not available 06/23/2023 5933 RxNorm React ion: unkno wn, unspe cifie d;; Not Available [facility] 4 00:59:19 09516 amoxicill in medicatio n other Not available Not available 06/23/2023 723 RxNorm React ion: unkno wn, unspe cifie d;; Not Available [facility] 4 00:59:22 08021 Product containin g penicilli n (product) medicatio n other Not available Not available 06/23/2023 89291 8001 SNOMED React ion: unkno wn, unspe cifie d;; Not Available [facility] 4 00:59:23 Medications Name Sig Start [...] by mouth 10/24 completed Medicati on ID: [id number] D uration Value: 90 Brand Name: Claritin Send Method: E-Prescr ibed Sub s Allowed: subs OK Medic ationGen ericName : Claritin Not Available Not Available [...] by mouth 10/24 completed Medicati on ID: [id number] D uration Value: 30 Prescri bed By Name: Torsten reardon MD Brand Name: omeprazo le Send Method: E-Prescr ibed Sub s Allowed: subs OK Medic ationGen ericName : omeprazo le Not Available Not Available Not Available hydrochlo rothiazid e 25 mg tablet TAKE 1/2 TAB BY MOUTH DAILY 10/24 completed Not Available Not Available Not Available azelastin e 137 mcg (0.1 %) nasal spray 1 spray into both nostrils twice a day 10/24 completed Medicati on ID: [id number] D uration Value: 30 Prescri bed By Name: NATASHA Richardson nd Name: eva vences Send Method: E-Prescr ibed Sub s Allowed: [...] mg tablet 10/24 completed Medicati on ID: [id number] B rand Name: Excedrin Extra Strength Send Method: E-Prescr ibed Sub s Allowed: subs OK Medic ationGen ericName : Excedrin Extra Strength Not Available Not Available Not Available TobraDex 0.3 %-0.1 % eye drops,alejandro pension 12/23 completed Medicati on ID: [id number] D uration Value: 14 Prescri bed By [...] both nostrils 10/24 completed Medicati on ID: [id number] D uration Value: 30 Brand Name: Flonase [...] Available Not Available No t Available Vitals None Recorded Social History None recorded. Functional Status None [...] ICD10 Code Diagnosis IMO Codes Diagnosis Note [id number] AZIZA CHANDRA PA-C [facility] [address] [address] 10/24/2024 08:51:21 10/24/2024 09:18:19 Disorder of right Eustachian tube [id number] 328839 H69.81 Allergic rhinitis 308845 04 J30.89 Dysphagia 56485079 R13.1 9 492853 Health Concerns Section Related Observation LastModified by Organization Detai ls LastModified Time None Recorded Concern Status LastModified by Organization Details LastModified Time None Recorded Payers Encounter Date Sequence Insurance Name Policy Number Policy Walter Covered Member ID Walter Member ID Guarantor Name 10/24/[address] [facility] [id number] Mitesh Urena [id number] Mitesh Urena Notes Date Note Type Note Provider Name and Address Organization Details Recorded Time 10/24/2024 text/html ROS as noted in the HPI 54-year-old female with history of chronic right-sided [...] and drink without difficulty. MORIAH POTTS MD [address] [place] [address], [place], [address], [facility] - [facility] 10/24/2024 10:58:21 OBGyn Episode No OBEpisode recorded.
== END 2024-12-23 16:16 | disposition home or self-care (01) ==
LOC: HO.HPS 15:43
PROVIDERS: PCP Internal Medicine; Visit Provider Hospitalist
DX: Z23 Encounter for immunization (principal)
CPT/HCPCS: 99214

== ENCOUNTER → 2024-12-23 15:43 | Outpatient (BNVA) | payer OTHER, SELFPAY | PROVIDERS: PCP Internal Medicine; Visit Provider Hospitalist | DX: Z23 Encounter for immunization (principal) | CPT/HCPCS: 90471; 90656 ==

== ENCOUNTER 2025-01-31 15:06 | Outpatient (AMB) | payer OTHER, SELFPAY ==
--- NOTE | 2025-01-31 15:11 | MHC.OFFVIS ---
Vital Signs 01/31/25 15:12 Height 5 ft 3 in Weight 215 lb BMI 38.1 BP 131/75 Blood Pressure Location Lt brachial Position Sitting Pulse 68 Intake Visit Reasons: Colonoscopy Screening Intake Note: Patient new consult for 2nd pre Colonoscopy screening. 1st Colonoscopy/ EGD was [address] Phipps with polyps on her Colonoscopy. Patient cc: mucous on her esophagus, denies any other GI issues. Nutrition Services Assistant Required: No Accompanied by: Self / Same As Patient Allergies lisinopril Allergy (Severe, Verified 01/31/25 15:10) Cough apple Allergy (Intermediate, Verified 01/31/25 15:10) welting Iodinated Contrast Media (IV CONTRAST) Allergy (Intermediate, Verified 01/31/25 15:10) hives, facial swelling and welts iodine (IODINE) Allergy (Intermediate, Verified 01/31/25 15:10) HIVES Penicillins (PENICILLINS) Allergy (Intermediate, Verified 01/31/25 15:10) HIVES amlodipine Adverse Reaction (Intermediate, Verified 01/31/25 15:10) swelling Medication List - Last Reconciled 01/31/25 by Grace Holman CNP acetaminophen (Tylenol Extra Strength) 500 mg PO Q6H PRN albuterol-budesonide 90-80 mcg/actuation (Airsupra) 2 inhalations inhalation BID PRN azelastine 1 spray intranasal BID bisacodyl 20 mg (4 x 5 mg) PO ONCE blood pressure monitor (Blood Pressure Kit) As directed estradiol 0.01%(0.1mg/gram) (Estrace) 1 g vaginal 2XW fluticasone propionate 50 mcg/actuation (Flonase Allergy Relief) 1 spray intranasal BID hydrochlorothiazide 12.5 mg PO BID inhalational spacing device (Aerochamber MV spacer) As directed levocetirizine (Xyzal) 5 mg PO DAILY losartan 100 mg PO DAILY polyethylene glycol 3350 (Miralax) 238 grams PO ONCE tramadol 50 mg PO DAILY PRN HPI HPI Colonoscopy Screening: Details: Patient is a 54-year-old female with PMH of obesity, hypertension, exercise induced asthma, sleep disturbance. Referred by PCP for pre colonoscopy screening. Her last colonoscopy was in March 2019, which had a ipsw-po-dfhhilekz prep and was complete, revealing one precancerous polyp in the ascending colon that was removed. A five-year repeat colonoscopy was recommended at that time. An upper endoscopy performed at time of colonoscopy was normal. She reports her prior reflux symptoms have mostly resolved. She reports chronic postnasal drip, managed with Flonase, allergy pills, and saline spray to little effect, which causes mucus in her esophagus and intermittent dysphagia when lying down. Recent labs from September showed no anemia, but her liver enzymes were mildly elevated on a non-fasting sample. An abdominal ultrasound from October of the previous year revealed fatty liver. The patient has a history of prediabetes, obesity, hypertension, and low HDL cholesterol, meeting the criteria for metabolic syndrome. Her medical history is also significant for illness and exercise-induced asthma, and she sees a professor of communication arts. Her weight has been stable. Patient denies: fever/chills, vomiting, appetite changes, pyrosis, regurgitation, unintentional wt loss, ab pain or melena/hematochezia. Social hx: -ETOH use 1 drink 5x/year -denies recreational drug use -non-smoker - family hx as below -denies personal hx of CA -denies significant cardiopulmonary history -tolerated anesthesia in the past without difficulty. [facility] Medical History (Updated 01/31/25 @ 16:02 by Grace Holman CNP) Post-nasal drip Hyperthyroidism Strep pharyngitis Upper respiratory tract infection LFT elevation Joint swelling Asthma Glaucoma Hematuria Hemorrhoid GERD (gastroesophageal reflux disease) Rosacea Exercise induced bronchospasm Chronic kidney disease Surgical History History of surgical procedure on eye proper using laser History of biopsy History of tubal ligation Hx of myringotomy History of endoscopy History of colonoscopy History of D&C History of 2 sections Family History Mother Myasthenia gravis Uterine cancer Renal cancer Diabetes mellitus Father Substance use disorder Mental health disorder Maternal Grandfather Heart attack Paternal Grandmother Psoriatic arthritis Maternal Grandmother Colon cancer Leukemia Social History Household Members: Spouse and Children Housing: House Alcohol intake: current Alcohol intake frequency: holidays/special occasions only Comment: once Q 2 month 2 drinks Patient Tobacco Use Status: Former Tobacco user Tobacco use type: Cigarette Years Smoked: pack in college- 1989 e-Cigarette/Vaping Use: Never Used Second Hand Smoke Exposure: Yes service: No Current occupational status: employed 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 [employer] Current occupational exposures/hazards: No Cognitive needs: No Hearing needs: No Vision needs: Yes (Glasses) Review of Systems Const Reports as per [facility] ENT Reports as per HPI Card Reports as per HPI Resp Reports as per HPI GI Reports as per [facility] Reports as per HPI Physical Exam Vital Signs: Last Vital Signs Pulse 68 01/31/25 15:12 BP 131/75 01/31/25 15:12 BMI result Body Mass Index 38.1 Const General: healthy appearing, no acute distress and well developed Nutritional Appearance: average body habitus Orientation/consciousness: patient oriented x3 HEENT Head: Yes normal to inspection, Yes normocephalic and Yes atraumatic Face and sinus: Yes normal facial exam Mouth: Normal oral and palatal mucosa present Throat: Yes posterior oropharynx normal and Yes postnasal drainage (mild) Eyes General: appearance normal, both eyes and all related structures Neck Neck: Yes normal visual inspection Resp Effort & Inspection: normal respiratory effort, able to speak in complete sentences, no tracheal deviation and symmetric chest movement Cardio Jugular venous distension: no JVD Neuro General: patient oriented x3 Gait exam (Neuro): Normal gait present Psych Appearance: grossly normal Mental Status: mental status grossly normal Speech and movement: Normal speech and movement present Affect: normal affect Attitude: cooperative Thought process: Normal thought process present Thought content: Normal thought content present Insight: Good insight present (Psych) Judgement: Good judgement present (Psych) Assessment & Plan Assessment & Plan (1) Colon cancer screening: Comment: 04/05/19 colonoscopy ( Dr. Phipps) complete with good to excellent prep - TA (ascending). Recommendations for repeat in 5 years (2024) Code(s): Z12.11 - Encounter for screening for malignant neoplasm of colon Category: Medical Plan: The patient is due for a screening colonoscopy given her personal history of a precancerous polyp found in 2019, for which a 5-year follow-up was recommended. - An order will be placed for the colonoscopy, and the scheduling team will contact the patient to arrange the appointment. - An upper endoscopy is not indicated at this time because her last one was normal and her upper GI symptoms have improved. - The recommended prep is a MiraLAX split dose with 64 ounces of Gatorade. - Preparation instructions were provided, including a clear liquid diet the day prior, avoiding red, blue, or purple liquids, and being NPO 4 hours before the procedure. (2) Hepatic steatosis: Code(s): K76.0 - Fatty (change of) liver, not elsewhere classified Category: Medical Plan: The patient's diagnosis of fatty liver was discussed, noting its reversibility and the importance of preventing progression to more severe liver disease. - The condition is likely related to metabolic syndrome, as the patient has obesity, prediabetes, and hypertension. - An order will be placed for repeat, fasting liver function tests to obtain an accurate assessment. - Management will focus on lifestyle modifications, including diet and exercise such as walking, to promote weight loss, control prediabetes, and improve cholesterol levels. - Deferred continued management to primary care provider, but a follow-up will occur here to review the ordered labs. (3) Post-nasal drip: Code(s): R09.82 - Postnasal drip Category: Medical Plan: The patient's symptom of dysphagia, particularly when lying down, is assessed to be related to her chronic postnasal drip and less likely a primary GI issue. - Advised her to continue follow-up and management with her ENT specialist for this condition. Plan Follow-up after colonoscopy or sooner as needed Time: I spent a total of 30 minutes on the date of encounter which includes: Preparing to see the patient (reviewed previous documentation, test results and medical history) Performing a medically appropriate exam and/or evaluation Ordering medications, tests, and procedures Documenting clinical information in the health record Orders: Orders Comprehensive [place]. Panel Fast Today Grace Holman CNP K76.0 - Fatty (change of) liver, not elsewhere classified Prothrombin Time INR Today Grace Holman CNP K76.0 - Fatty (change of) liver, not elsewhere classified Ferritin Today Grace Holman CNP K76.0 - Fatty (change of) liver, not elsewhere classified Smooth Muscle Antibody Today Grace Holman CNP K76.0 - Fatty (change of) liver, not elsewhere classified Transglutaminase IgA Today Grace Holman CNP K76.0 - Fatty (change of) liver, not elsewhere classified Referrals GI Procedure Notification Grace Holman CNP Z12.11 - Encounter for screening for malignant neoplasm of colon Medications: New bisacodyl take four tablets once day of colonoscopy prep 20 mg (4 x 5 mg) PO ONCE 4 tabs 0RF Grace Sarpey, GERIATRICS PHYSICIAN polyethylene glycol 3350 (Miralax) per colonoscopy prep instructions 238 grams PO ONCE 238 grams 0RF Grace Sarpey, GERIATRICS PHYSICIAN Changed From tramadol 50 mg PO DAILY 20 tabs 0RF M17.11 - Unilateral primary osteoarthritis, right knee To tramadol 50 mg PO DAILY PRN M17.11 - Unilateral primary osteoarthritis, right knee Faviola Babb Po, Coding Level of Care Code New Pt New Pt Level 3 (44112) Patient Type New Diagnoses Colon cancer screening Z12.11 Hepatic steatosis K76.0 Post-nasal drip R09.82
[2025-01-31 15:12] VITALS: BP 131/75; PULSE 68; BMI 38.1
== END 2025-01-31 15:53 | disposition home or self-care (01) ==
LOC: HO.HGI 15:07
PROVIDERS: PCP Internal Medicine; Visit Provider Nurse Practitioner Family
DX: Z01.818 Encounter for other preprocedural examination (principal); Z12.11 Encounter for screening for malignant neoplasm of colon; K76.0 Fatty (change of) liver, not elsewhere classified; R09.82 Postnasal drip
CPT/HCPCS: 99203